=== PATIENT | male | born 1945 | race Caucasian/White ===

== ENCOUNTER 2017-04-07 08:37 | Observation (INO) | payer OTHER ==
[2017-04-07 08:43] VITALS: BMI 31.7
--- NOTE | 2017-04-07 09:20 | PDOC ---
*Physical Exam - Vital Signs Last Vital Signs Temp Pulse Resp BP Pulse Ox 97.4 F L 59 L 18 125/60 100 04/07/17 08:39 04/07/17 08:39 04/07/17 08:39 04/07/17 08:39 04/07/17 08:39 ED Treatment Course - LABORATORY CBC & Chemistry Diagram: 04/08/17 05:05 04/08/17 05:05 Medical Decision Making - Medical Decision Making 04/08/17 12:26 Mr Carrera is a 72 yo M presenting s/p syncopal event. (+) weakness, myalgias, arthralgias x 2 weeks He was seen in follow up by his spinning frame changer who did blood tests Pt had syncopal episode at 3 AM when he was leaving the bathroom Pt who was in the other room heard him GENERAL: The patient is in no acute distress. HEAD: Normal with no signs of trauma. EYES: PERRLA, EOMI, sclera anicteric, conjunctiva clear. ENT: Ears normal, nares patent, oropharynx clear without exudates. Moist mucous membranes. NECK: Normal range of motion, supple LUNGS: Breath sounds equal, clear to auscultation bilaterally. No wheezes, and no crackles. HEART:Regular rate and rhythm, normal S1 and S2 without murmur, rub or gallop. ABDOMEN: Soft, nontender, normoactive bowel sounds. No guarding, no rebound. No masses palpable. EXTREMITIES: Normal range of motion, no edema. No clubbing or cyanosis. No erythema, or tenderness. NEUROLOGICAL: Cranial nerves II through XII grossly intact. Normal speech. No focal neurological deficits. MUSCULOSKELETAL: Back non-tender to palpation, no CVA tenderness SKIN: Warm, Dry, normal turgor, no rashes or lesions noted. 04/08/17 12:35 Laboratory Tests 04/07/17 04/07/17 09:45 09:49 WBC 6.9 Hgb 13.3 Hct 39.9 Plt Count 204 BUN 20 H Creatinine 1.0 Creatine Kinase 161 Creatine Kinase Index 1.6 CK-MB (CK-2) 2.663 Troponin I 0.02 Patient will be placed on observation status post syncopal event 04/08/17 12:35 Pt seen by Midlevel Provider under my direct supervision Pt interviewed and examined Ancillary studies reviewed I agree with plan as outlined by Midlevel Provider Clinical impression: Syncope, initial presentation *DC/Admit/Observation/Transfer Diagnosis at time of Disposition: Syncope and collapse - Referrals - Patient Instructions - Post Discharge Activity
--- NOTE | 2017-04-07 09:47 | PDOC ---
History of Present Illness - General Chief Complaint: Syncope/Near Syncope Stated Complaint: NEAR SYNCOPE/SYNCOPE Time Seen by Provider: 04/07/17 08:57 History Source: Patient Exam Limitations: No Limitations - History of Present Illness Initial Comments: 04/07/17 09:52 72-year-old male presents the emergency room for evaluation of a syncopal episode. Patient states for the past 2 weeks has felt generally weak along with myalgia and arthralgia prompted him to call his mechanical maintenance instructor Dr. Hussein who had did blood work this past week. Patient states went to bed uneventfully at 3 AM last night and awoke from his sleep secondary to severe cramping in his left upper leg which caused him to jump out of bed and tried to walk it off. Patient states after leaving the bathroom the weakness progressively worsened and next thing he knows he woke up on the floor. Patient states was able to get up from the floor with no assistance. who was in the other room states she heard him hit the ground and when she went into the room he was already trying to get up. Patient has no complaints of chest pain, shortness of breath, headache, dizziness, visual changes or nausea. Presenting Symptoms: Syncope Timing/Duration: reports: resolved prior to arrival Prior Chest Pain/Cardiac Workup: reports: Other (stents secondary to cad, dyslipidemia) Nitro Today/Relief: Yes: no nitro taken today Aspirin Received prior to arrival (Core Measure): Yes: 81 mg x 1, provided at home Beta Shahzad taken at Home (Core Measure): Yes Beta Shahzad indicated at this time? (Core Measure): No Associated Symptoms: Yes: Syncope, Weakness Past History - Travel Traveled outside of the country in the last 30 days: No - Past Medical History Allergies/Adverse Reactions: Allergies Allergy/AdvReac Type Severity Reaction Status Date / Time codeine [Codeine] AdvReac Verified 04/07/17 08:39 Home Medications: Ambulatory Orders Aspirin 81 mg PO DAILY 04/07/17 Atorvastatin Ca [Lipitor] 10 mg PO MOWEFR 04/07/17 Metoprolol Succinate [Toprol Xl] 25 mg PO HS 04/07/17 Prasugrel HCl [Effient] 10 mg PO BID 04/07/17 Ranolazine [Ranexa] 500 mg PO BID 04/07/17 Anemia: No Asthma: No Cancer: No Cardiac Disorders: Yes (CAD) CVA: No COPD: No CHF: No Dementia: No Diabetes: No GI Disorders: No Disorders: No HTN: Yes Hypercholesterolemia: Yes Liver Disease: No Seizures: No Thyroid Disease: No - Surgical History Abdominal Surgery: No Appendectomy: No Cardiac Surgery: Yes (3 stents) Cholecystectomy: No Lung Surgery: No Neurologic Surgery: No Orthopedic Surgery: Yes (RIGHT HIP REPLACEMENT) - Suicide/Smoking/Psychosocial Hx Smoking Status: No Smoking History: Former smoker Have you smoked in the past 12 months: No Number of Cigarettes Smoked Daily: 0 Cigars Per Day: 0 Information on smoking cessation initiated: No Hx Alcohol Use: No Drug/Substance Use Hx: No Substance Use Type: None Hx Substance Use Treatment: No Patient Lives Alone: No Lives with/in: spouse/SO Cardiac Specific PMH - Complaint Specific PMHX Pacemaker: No Review of Systems - Review of Systems Able to Perform ROS?: Yes Constitutional: Yes: Weakness HEENTM: No: Symptoms Reported Respiratory: No: Cough, Orthopnea, Shortness of Breath Cardiac (ROS): Yes: Lightheadedness, Syncope. No: Chest Pain ABD/GI: No: Symptoms Reported : No: Symptoms Reported Musculoskeletal: Yes: Joint Pain (x 2 weeks), Muscle Weakness (x 2 weeks) Neurological: Yes: Weakness. No: Headache, Dizziness Hematologic/Lymphatic: Yes: See HPI *Physical Exam - Vital Signs Last Vital Signs Temp Pulse Resp BP Pulse Ox 97.4 F L 61 18 137/72 100 04/07/17 08:39 04/07/17 10:27 04/07/17 08:39 04/07/17 10:27 04/07/17 08:39 - Physical Exam General Appearance: Yes: Nourished, Appropriately Dressed. No: Apparent Distress HEENT: positive: EOMI, VÍCTOR, TMs Normal, Pharynx Normal. negative: Pale Conjunctivae Neck: positive: Supple Respiratory/Chest: positive: Lungs Clear, Normal Breath Sounds. negative: Respiratory Distress, Accessory Muscle Use Cardiovascular: positive: Regular Rhythm, Regular Rate (rate 63). negative: Murmur Extremity: positive: Normal Capillary Refill, Normal Inspection, Normal Range of Motion. negative: Tender, Pedal Edema, Calf Tenderness Integumentary: positive: Normal Color, Dry, Warm Neurologic: positive: Normal Mood/Affect, Motor Strength 5/5 (ambulatory) Heart Score/ECG Review - History History: Slightly suspicious - Electrocardiogram EKG: Normal - Age Age: >/= 65 - Risk Factors Risk Factors Heart Score: Yes Hx Hypercholesterolemia, Yes Hx Hypertension Based on the list above the patient has:: 1-2 risk factors - Troponin Troponin: </= normal limit - Score Heart Score - Total: 3 - ECG Intrepretation Rhythm: Regular Rhythm (Rate 63. Left axis deviation. Right bundle branch block noted. No ST elevation or depression noted. Unchanged from previous December 2015.) ED Treatment Course - LABORATORY CBC & Chemistry Diagram: 04/07/17 09:45 04/07/17 09:49 - ADDITIONAL ORDERS Additional order review: Laboratory Results 04/07/17 04/07/17 04/07/17 09:49 09:45 09:45 PT with INR 11.60 INR 1.03 Sodium 140 Potassium 4.6 Chloride 108 H Carbon Dioxide 25 Anion Gap 7 L BUN 20 H Creatinine 1.0 Creat Clearance w eGFR > 60 Random Glucose 108 H Calcium 8.4 L Magnesium 2.0 Total Bilirubin 0.3 D AST 22 ALT 33 Alkaline Phosphatase 97 Creatine Kinase 161 Troponin I 0.02 Total Protein 6.9 Albumin 3.5 Blood Type O POSITIVE Antibody Screen Negative 04/07/17 09:45 RBC 4.07 MCV 98.0 H MCHC 33.4 RDW 13.0 MPV 9.2 Neutrophils % 59.3 D Lymphocytes % 23.3 D Monocytes % 11.7 H Eosinophils % 5.0 H Basophils % 0.7 - RADIOLOGY Radiology Studies Ordered: Category Date Time Status HEAD CT WITHOUT CONTRAST [CT] Stat CT Scan 04/07/17 09:37 Completed CHEST PA & LAT [RAD] Stat Radiology 04/07/17 09:36 Taken Medical Decision Making - Medical Decision Making 04/07/17 09:49 Patient here for episodic syncope. Patient states the past 2 weeks has been having myalgia or arthralgia along with lower extremity muscle cramps which he notified his mechanical maintenance instructor about Dr. Hussein and had blood work done this past week. Patient states history of 2 stents and takes his medication as prescribed. Patient states today he was awoken from sleep secondary to left upper leg cramping and then after walking to the bathroom and tried to back to bed he felt generally weak causing him to fall to the ground which she is unable to recall specific events prior to him falling along with lower part of his body hit the ground. Patient ordered for cardiac workup including head CT and will contact his mechanical maintenance instructor along with his from a care physician. 04/07/17 11:53 Laboratory Tests 04/07/17 04/07/17 09:45 09:49 WBC 6.9 Hgb 13.3 Hct 39.9 MCV 98.0 H Plt Count 204 Neutrophils % 59.3 D Sodium 140 Potassium 4.6 Chloride 108 H Carbon Dioxide 25 Anion Gap 7 L BUN 20 H Creatinine 1.0 Random Glucose 108 H Calcium 8.4 L AST 22 ALT 33 Alkaline Phosphatase 97 Creatine Kinase 161 Troponin I 0.[address] negative for acute findings. Will contact patient's primary care physician Dr. Johnston and Dr. Hussein mechanical maintenance instructor 04/07/17 12:34 Selected Entries 04/07/17 10:27 Pulse Rate [ 64 Left side Sitting] Pulse Rate [ 67 Left side Standing] Pulse Rate [ 61 Left side Supine] Blood Pressure 129/69 [Left side Sitting] Blood Pressure 140/86 [Left side Standing] Blood Pressure 137/72 [Left side Supine] Case discussed with Dr. Hussein patient's mechanical maintenance instructor and is requesting a ESR along with admission to telemetry and an echocardiogram. Awaiting callback from Dr. Johnston *DC/Admit/Observation/Transfer Diagnosis at time of Disposition: Syncope and collapse - Discharge Dispostion Admit: Yes - Referrals Referrals: Elio Johnston MD [Primary Care Provider] - - Patient Instructions - Post Discharge Activity
[2017-04-07 10:07] LABS: BASO % 0.7 % (0-2.0); HEMATOCRIT 39.9 % (35.4-49); HEMOGLOBIN 13.3 GM/dL (11.7-16.9); LYMPH % 23.3 % (8-40); MCH 32.7 pg (25.7-33.7); MCHC 33.4 g/dl (32.0-35.9); MEAN PLT VOLUME 9.2 fl (7.5-11.1); MONO % 11.7 % (3.8-10.2); NEUT % 59.3 % (42.8-82.8); PLATELET COUNT 204 K/MM3 (134-434); RBC 4.07 M/mm3 (4.00-5.60); WHITE BLOOD COUNT 6.9 K/mm3 (4.0-10.0)
[2017-04-07 10:11] LABS: INR 1.03 (0.82-1.09); PROTHROMBIN TIME (PATIENT) 11.6 SEC (9.98-11.88)
[2017-04-07 10:29] LABS: ALBUMIN 3.5 g/dl (3.4-5.0); ALK PHOS 97 U/L (45-117); BILIRUBIN,TOTAL 0.3 mg/dL (0.2-1.0); BLOOD UREA NITROGEN 20 mg/dL (7-18); CALCIUM 8.4 mg/dL (8.5-10.1); CO2 25 mmol/L (21-32); GLUCOSE,RANDOM 108 mg/dL (74-106); SGOT/AST 22 U/L (15-37); SGPT/ALT 33 U/L (12-78); TOT PROT 6.9 g/dl (6.4-8.2)
[2017-04-07 10:31] LABS: ANION GAP 7 (8-16); CHLORIDE 108 mmol/L (98-107); POTASSIUM 4.6 mmol/L (3.5-5.1); SODIUM 140 mmol/L (136-145)
[2017-04-07] MEDS: ASPIRIN 81 MG CHEWABLE TABLETS PO SCH (14:39)
--- NOTE | 2017-04-07 15:00 | HP ---
CHIEF COMPLAINT: loss consciousness PCP: Bart Quispe HISTORY OF PRESENT ILLNESS: 72 year old male with a past medical history of CAD, s/p stents , vasovagal syncope, BPV, presents to the emergency room after loosing consciousness at home. Patient states he was laying in bed, he felt the urge to urinate, when he went to bathroom, moved his bowel. After getting up from seated position, he felt a "cindy horse" in left leg (chronic for him), all of a sudden he realized he was on the floor. When he woke up he noticed he soiled himself with urine and felt very weak. This was unwitnessed. Denies tongue biting, chest pain , palpitations, sob, diaphoresis, blurry vision. He has had one similar episode in the past that was attributed to vasovagal syncope. ER course was notable for: ECG; CXR; wnl; head CT negative. Trop neg x1. Recent Travel: no PAST MEDICAL HISTORY: CAD, stents 2016, HTN PAST SURGICAL HISTORY: Stents, Rt hip replacement, Social History: Smoking:quit 20yrs ago; use to smoke 1 ppd Alcohol: none Drugs: none Family History: Allergies codeine [Codeine] Adverse Reaction (Verified 04/07/17 08:39) C/O FEELING TIRED WITH MEDICATION HOME MEDICATIONS: Home Medications Medication Instructions Recorded Aspirin 81 mg PO DAILY 04/07/17 Atorvastatin Ca [Lipitor] 10 mg PO MOWEFR 04/07/17 Metoprolol Succinate [Toprol Xl] 25 mg PO HS 04/07/17 Prasugrel HCl [Effient] 10 mg PO BID 04/07/17 Ranolazine [Ranexa] 500 mg PO BID 04/07/17 REVIEW OF SYSTEMS CONSTITUTIONAL: Absent: fever, chills, diaphoresis, generalized weakness, malaise, loss of appetite, weight change HEENT: Absent: rhinorrhea, nasal congestion, throat pain, throat swelling, difficulty swallowing, mouth swelling, ear pain, eye pain, visual changes CARDIOVASCULAR: Absent: chest pain, syncope, palpitations, irregular heart rate, lightheadedness , peripheral edema RESPIRATORY: Absent: cough, shortness of breath, dyspnea with exertion, orthopnea, wheezing, stridor, hemoptysis GASTROINTESTINAL: Absent: abdominal pain, abdominal distension, nausea, vomiting, diarrhea, constipation, melena, hematochezia GENITOURINARY: Absent: dysuria, frequency, urgency, hesitancy, hematuria, flank pain, genital pain MUSCULOSKELETAL: Absent: myalgia, arthralgia, joint swelling, back pain, neck pain SKIN: Absent: rash, itching, pallor HEMATOLOGIC/IMMUNOLOGIC: Absent: easy bleeding, easy bruising, lymphadenopathy, frequent infections ENDOCRINE: Absent: unexplained weight gain, unexplained weight loss, heat intolerance, cold intolerance NEUROLOGIC: Positive: weakness , loc Absent: headache, focal weakness or paresthesias, dizziness, unsteady gait, seizure, mental status changes, bladder or bowel incontinence PSYCHIATRIC: Absent: anxiety, depression, suicidal or homicidal ideation, hallucinations. PHYSICAL EXAMINATION Vital Signs - 24 hr 04/07/17 04/07/17 08:39 10:27 Temperature 97.4 F L Pulse Rate 59 L Pulse Rate [ 64 Left side Sitting] Pulse Rate [ 67 Left side Standing] Pulse Rate [ 61 Left side Supine] Respiratory 18 Rate Blood Pressure 125/60 Blood Pressure 129/69 [Left side Sitting] Blood Pressure 140/86 [Left side Standing] Blood Pressure 137/72 [Left side Supine] O2 Sat by Pulse 100 Oximetry (%) GENERAL: Awake, alert, and fully oriented, in no acute distress. HEAD: Normal with no signs of trauma. EYES: Pupils equal, round and reactive to light, extraocular movements intact, sclera anicteric, conjunctiva clear. No lid lag. EARS, NOSE, THROAT: Ears normal, nares patent, oropharynx clear without exudates. Moist mucous membranes. NECK: Normal range of motion, supple without lymphadenopathy, JVD, or masses. LUNGS: Breath sounds equal, very mlid crakles bilateral bases; clears with cough No wheezes. No accessory muscle use. HEART: Regular rate and rhythm, normal S1 and S2 without murmur, rub or gallop. ABDOMEN: Soft, nontender, not distended, normoactive bowel sounds, no guarding, no rebound, no masses. No hepatomegaly or splenomegaly. MUSCULOSKELETAL: Normal range of motion at all joints. No bony deformities or tenderness. No CVA tenderness. UPPER EXTREMITIES: 2+ pulses, warm, well-perfused. No cyanosis. No clubbing. No peripheral edema. LOWER EXTREMITIES: 2+ pulses, warm, well-perfused. No calf tenderness. No peripheral edema. NEUROLOGICAL: Cranial nerves II-XII intact. Normal speech. facial symmetry; motor 5/5 all muscle groups; reflexes 2+; light touch/pain sensation intact throughout bilateral upper and lower extremities PSYCHIATRIC: Cooperative. Good eye contact. Appropriate mood and affect. SKIN: Warm, dry, normal turgor, no rashes or lesions noted, normal capillary refill. Laboratory Results - last 24 hr 04/07/17 04/07/17 04/07/17 09:45 09:45 09:45 WBC 6.9 RBC 4.07 Hgb 13.3 Hct 39.9 MCV 98.0 H MCH 32.7 MCHC 33.4 RDW 13.0 Plt Count 204 MPV 9.2 Neutrophils % 59.3 D Lymphocytes % 23.3 D Monocytes % 11.7 H Eosinophils % 5.0 H Basophils % 0.7 PT with INR 11.60 INR 1.03 Sodium Potassium Chloride Carbon Dioxide Anion Gap BUN Creatinine Creat Clearance w eGFR Random Glucose Calcium Magnesium Total Bilirubin AST ALT Alkaline Phosphatase Creatine Kinase Creatine Kinase Index CK-MB (CK-2) Troponin I Total Protein Albumin Blood Type O POSITIVE Antibody Screen Negative 04/07/17 09:49 WBC RBC Hgb Hct MCV MCH MCHC RDW Plt Count MPV Neutrophils % Lymphocytes % Monocytes % Eosinophils % Basophils % PT with INR INR Sodium 140 Potassium 4.6 Chloride 108 H Carbon Dioxide 25 Anion Gap 7 L BUN 20 H Creatinine 1.0 Creat Clearance w eGFR > 60 Random Glucose 108 H Calcium 8.4 L Magnesium 2.0 Total Bilirubin 0.3 D AST 22 ALT 33 Alkaline Phosphatase 97 Creatine Kinase 161 Creatine Kinase Index 1.6 CK-MB (CK-2) 2.663 Troponin I 0.02 Total Protein 6.9 Albumin 3.5 Blood Type Antibody Screen ASSESSMENT/PLAN: 72 year old male with a significant past medical history of HTN, CAD s/p stents , presents to the emergency room s/p loosing consciousness at home. Etiology for syncopal episode most likely vasovagal due to history and previous similar episodes. #Syncope; -most likely vasovagal; -place in telemetry to eval for arrhythmia -ECG unchanged from previous; still with 1st degree AV block; no st/t wave abnormalities -ECHO pending -will order carotid doppler ; eval arterial flow -cardiac consult CAD: -cont home med; asa; HTN: hold bp meds due to HR 59; FEN: Fluids: IVF; PO Electrolytes wnl Diet: cardiac VTE: lovenox Case discussed with Dr. Michela Gamez PGY-2 Problem List - Problem (1) Syncope and collapse Code(s): R55 - SYNCOPE AND COLLAPSE (2) Coronary artery disease Code(s): I25.10 - ATHSCL HEART DISEASE OF [place] CORONARY ARTERY W/O ANG PCTRS Qualifiers: Coronary Disease-Associated Artery/Lesion type: [place] artery [place] vs. transplanted heart: [place] heart Associated angina: with unstable angina Qualified Code(s): I25.110 - Atherosclerotic heart disease of [place] coronary artery with unstable angina pectoris (3) HTN (hypertension) Code(s): I10 - ESSENTIAL (PRIMARY) HYPERTENSION Qualifiers: Hypertension type: essential hypertension Qualified Code(s): I10 - Essential (primary) hypertension (4) Hyperlipidemia Code(s): E78.5 - HYPERLIPIDEMIA, UNSPECIFIED Qualifiers: Hyperlipidemia type: pure hypercholesterolemia (5) S/P coronary artery stent placement Code(s): Z95.5 - PRESENCE OF CORONARY ANGIOPLASTY IMPLANT AND GRAFT (6) Unstable angina Code(s): I20.0 - UNSTABLE ANGINA Visit type - Emergency Visit Emergency Visit: Yes ED Registration Date: 04/07/17 Care time: The patient presented to the Emergency Department on the above date and was hospitalized for further evaluation of their emergent condition. - New Patient This patient is new to me today: Yes Date on this admission: 04/07/17 - Critical Care Critical Care patient: No
[2017-04-07 15:54] LABS: MAGNESIUM 2.1 mg/dL (1.8-2.4); PHOSPHOROUS 2.8 mg/dL (2.5-4.9)
--- NOTE | 2017-04-07 16:14 | HP ---
CHIEF COMPLAINT: syncopal episode PCP: Dr. Li HISTORY OF PRESENT ILLNESS: 72M w/ hx of CAD s/p stents x3, HTN, HLD, ASHD, and 2 episodes of vasovagal syncope who presents after a syncopal episode. Per pt, he was having worsening of his chronic myalgias over the past 2 weeks. This morning at 3am, he awoke with severe left thigh muscle cramping pain. He then walked to the bathroom, had a BM, arose from the toilet, and upon walking back to his bed, he had a syncopal episode. The next thing he remembers is waking up on the floor, diaphoretic and having urinated on himself. He denies confusion, limb or head pain, and does not know if he hit any part of his body on the floor. His heard him hit the ground, and when she saw him, she states that he was coherent and his usual self. The pt endorses some lightheadedness, but denies fevers, chills, chest pain, SOB, nausea, emesis, diarrhea, constipation, dysuria, sick contacts, recent travel, tongue biting, and hx of seizures. Pt reports that he had 2 prior syncopal episodes in the past, the most recent of which was years ago. 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 ER course was notable for: (1) labs (2) imaging (3) EKG Recent Travel: denies PAST MEDICAL HISTORY: CAD, HTN, HLD, ASHD, and 2 episodes of vasovagal syncope PAST SURGICAL HISTORY: stents x3 right hip replacement Social History: Smokin pack year hx, quit 30 years ago Alcohol: denies Drugs: denies Family History: non-contributory Allergies codeine [Codeine] Adverse Reaction (Verified 04/07/17 08:39) C/O FEELING TIRED WITH MEDICATION HOME MEDICATIONS: Home Medications Medication Instructions Recorded Aspirin 81 mg PO DAILY 04/07/17 Atorvastatin Ca [Lipitor] 10 mg PO MOWEFR 04/07/17 Metoprolol Succinate [Toprol Xl] 25 mg PO HS 04/07/17 Prasugrel HCl [Effient] 10 mg PO BID 04/07/17 Ranolazine [Ranexa] 500 mg PO BID 04/07/17 REVIEW OF SYSTEMS CONSTITUTIONAL: Absent: fever, chills, diaphoresis, generalized weakness, malaise, loss of appetite, weight change present: diaphoresis HEENT: Absent: rhinorrhea, nasal congestion, throat pain, throat swelling, difficulty swallowing, mouth swelling, ear pain, eye pain, visual changes CARDIOVASCULAR: Absent: chest pain, palpitations, irregular heart rate, peripheral edema present: syncope, lightheadedness RESPIRATORY: Absent: cough, shortness of breath, dyspnea with exertion, orthopnea, wheezing, stridor, hemoptysis GASTROINTESTINAL: Absent: abdominal pain, abdominal distension, nausea, vomiting, diarrhea, constipation, melena, hematochezia GENITOURINARY: Absent: dysuria, frequency, urgency, hesitancy, hematuria, flank pain, genital pain MUSCULOSKELETAL: Absent: joint swelling, back pain, neck pain present: myalgia, arthralgia SKIN: Absent: rash, itching, pallor HEMATOLOGIC/IMMUNOLOGIC: Absent: easy bleeding, easy bruising, lymphadenopathy, frequent infections ENDOCRINE: Absent: unexplained weight gain, unexplained weight loss, heat intolerance, cold intolerance NEUROLOGIC: Absent: headache, focal weakness or paresthesias, dizziness, unsteady gait, seizure, mental status changes, bladder or bowel incontinence PSYCHIATRIC: Absent: anxiety, depression, suicidal or homicidal ideation, hallucinations. PHYSICAL EXAMINATION Vital Signs - 24 hr 04/07/17 04/07/17 08:39 10:27 Temperature 97.4 F L Pulse Rate 59 L Pulse Rate [ 64 Left side Sitting] Pulse Rate [ 67 Left side Standing] Pulse Rate [ 61 Left side Supine] Respiratory 18 Rate Blood Pressure 125/60 Blood Pressure 129/69 [Left side Sitting] Blood Pressure 140/86 [Left side Standing] Blood Pressure 137/72 [Left side Supine] O2 Sat by Pulse 100 Oximetry (%) GENERAL: Awake, alert, and fully oriented, in no acute distress. HEAD: Normal with no signs of trauma. EYES: Pupils equal, round and reactive to light, extraocular movements intact, sclera anicteric, conjunctiva clear. No lid lag. EARS, NOSE, THROAT: Ears normal, nares patent, oropharynx clear without exudates. Moist mucous membranes. NECK: Normal range of motion, supple without lymphadenopathy, JVD, or masses. LUNGS: mild bibasilar rales HEART: Regular rate and rhythm, normal S1 and S2 without murmur, rub or gallop. ABDOMEN: Soft, nontender, not distended, normoactive bowel sounds, no guarding, no rebound, no masses. No hepatomegaly or splenomegaly. MUSCULOSKELETAL: Normal range of motion at all joints. No bony deformities or tenderness. No CVA tenderness. UPPER EXTREMITIES: 2+ pulses, warm, well-perfused. No cyanosis. No clubbing. No peripheral edema. LOWER EXTREMITIES: 2+ pulses, warm, well-perfused. No calf tenderness. trace peripheral edema NEUROLOGICAL: Cranial nerves II-XII intact. Normal speech. Laboratory Results - last 24 hr 04/07/17 04/07/17 04/07/17 09:45 09:45 09:45 WBC 6.9 RBC 4.07 Hgb 13.3 Hct 39.9 MCV 98.0 H MCH 32.7 MCHC 33.4 RDW 13.0 Plt Count 204 MPV 9.2 Neutrophils % 59.3 D Lymphocytes % 23.3 D Monocytes % 11.7 H Eosinophils % 5.0 H Basophils % 0.7 PT with INR 11.60 INR 1.03 Sodium Potassium Chloride Carbon Dioxide Anion Gap BUN Creatinine Creat Clearance w eGFR Random Glucose Calcium Magnesium Total Bilirubin AST ALT Alkaline Phosphatase Creatine Kinase Creatine Kinase Index CK-MB (CK-2) Troponin I Total Protein Albumin Blood Type O POSITIVE Antibody Screen Negative 04/07/17 09:49 WBC RBC Hgb Hct MCV MCH MCHC RDW Plt Count MPV Neutrophils % Lymphocytes % Monocytes % Eosinophils % Basophils % PT with INR INR Sodium 140 Potassium 4.6 Chloride 108 H Carbon Dioxide 25 Anion Gap 7 L BUN 20 H Creatinine 1.0 Creat Clearance w eGFR > 60 Random Glucose 108 H Calcium 8.4 L Magnesium 2.0 Total Bilirubin 0.3 D AST 22 ALT 33 Alkaline Phosphatase 97 Creatine Kinase 161 Creatine Kinase Index 1.6 CK-MB (CK-2) 2.663 Troponin I 0.02 Total Protein 6.9 Albumin 3.5 Blood Type Antibody Screen CXR: no acute pathology CT head: no acute pathology EKG: no acute changes, type 1 heart block ASSESSMENT/PLAN: 72M w/ hx of CAD s/p stents x3, HTN, HLD, ASHD, and 2 episodes of vasovagal syncope who presents after a syncopal episode. #syncope -likely 2/2 vasovagal vs. cardiac vs. orthostatic etiology. Pt has hx of 2 prior vasovagal episodes, and this current syncopal episode occurred after defecating supporting vasovagal etiology. However, pt is on toprol and has type 1 heart block, and so any strenuous physical activity, such as defecation, could prevent the heart from adequately perfusing the brain, supporting cardiac etiology. -serial trops -echo -carotid dopplers -orthostatic vitals -cardiac tele -cardio consult, Dr. Hussein on board, f/u recs -CT head negative for any acute pathology #CAD -continue ASA, ranexa, and prasugrel #HTN -home toprol held due to BP and bradycardia #HLD -continue home lipitor #FEN/ppx -po fluids -electrolytes wnl -sodium controlled diet -no GI ppx indicated -lovenox #Dispo -admit to obs/tele Case discussed with attending, Dr. Abernathy. -Chris Alaniz MD PGY1 Visit type - Emergency Visit Emergency Visit: Yes ED Registration Date: 04/07/17 Care time: The patient presented to the Emergency Department on the above date and was hospitalized for further evaluation of their emergent condition. - New Patient This patient is new to me today: Yes Date on this admission: 04/07/17 - Critical Care Critical Care patient: No
--- NOTE | 2017-04-07 16:15 | PN ---
Teaching Attending Note Name of Resident: Chris Alaniz ATTENDING PHYSICIAN STATEMENT I saw and evaluated the patient. I reviewed the resident's note and discussed the case with the resident. I agree with the resident's findings and plan as documented. SUBJECTIVE: This is a 72 year old man with a history of CAD, stents, HTN, hyperlipidemia, vasovagal syncope who comes to the ER after passing out. He reports that he awoke at 3am with cramping of his left thigh. He went into the bathroom and had a bowel movement. He went to go back to bed and awoke on the floor. He was diaphoretic and had been incontinent of urine. His heard him hit the floor and found him awake, alert and oriented. OBJECTIVE: Vital Signs Period Temp Pulse Resp BP Sys/Warner Pulse Ox Last 24 Hr 97.4 F 59-67 18 125-140/60-86 100 HEART: S1S2, RRR LUNGS: Clear ABDOMEN: Soft, non-tender, non-distended, normal BS EXTREMITIES: Trace edema Laboratory Tests 04/07/17 04/07/17 04/07/17 09:45 09:45 09:45 WBC 6.9 RBC 4.07 Hgb 13.3 Hct 39.9 MCV 98.0 H MCH 32.7 MCHC 33.4 RDW 13.0 Plt Count 204 MPV 9.2 Neutrophils % 59.3 D Lymphocytes % 23.3 D Monocytes % 11.7 H Eosinophils % 5.0 H Basophils % 0.7 PT with INR 11.60 INR 1.03 Sodium Potassium Chloride Carbon Dioxide Anion Gap BUN Creatinine Creat Clearance w eGFR Random Glucose Calcium Magnesium Total Bilirubin AST ALT Alkaline Phosphatase Creatine Kinase Creatine Kinase Index CK-MB (CK-2) Troponin I Total Protein Albumin Blood Type O POSITIVE Antibody Screen Negative 04/07/17 09:49 WBC RBC Hgb Hct MCV MCH MCHC RDW Plt Count MPV Neutrophils % Lymphocytes % Monocytes % Eosinophils % Basophils % PT with INR INR Sodium 140 Potassium 4.6 Chloride 108 H Carbon Dioxide 25 Anion Gap 7 L BUN 20 H Creatinine 1.0 Creat Clearance w eGFR > 60 Random Glucose 108 H Calcium 8.4 L Magnesium 2.0 Total Bilirubin 0.3 D AST 22 ALT 33 Alkaline Phosphatase 97 Creatine Kinase 161 Creatine Kinase Index 1.6 CK-MB (CK-2) 2.663 Troponin I 0.02 Total Protein 6.9 Albumin 3.5 Blood Type Antibody Screen Home Medications Medication Instructions Recorded Aspirin 81 mg PO DAILY 04/07/17 Atorvastatin Ca [Lipitor] 10 mg PO MOWEFR 04/07/17 Metoprolol Succinate [Toprol Xl] 25 mg PO HS 04/07/17 Prasugrel HCl [Effient] 10 mg PO BID 04/07/17 Ranolazine [Ranexa] 500 mg PO BID 04/07/17 ASSESSMENT AND PLAN:
--- NOTE | 2017-04-07 16:37 | EKG ---
Test Reason : Blood Pressure : / mmHG Vent. Rate : 063 BPM Atrial Rate : 063 BPM P-R Int : 218 ms QRS Dur : 148 ms QT Int : 438 ms P-R-T Axes : -61 -38 000 degrees QTc Int : 448 ms UNUSUAL P AXIS, POSSIBLE ECTOPIC ATRIAL RHYTHM LEFT AXIS DEVIATION RIGHT BUNDLE BRANCH BLOCK ABNORMAL ECG WHEN COMPARED WITH ECG OF 08-JAN-2016 10:40, ECTOPIC ATRIAL RHYTHM HAS REPLACED SINUS RHYTHM Confirmed by MD Laura, Ash ([id number]) on 04/07/2017 4:37:36 PM Referred By: Confirmed By:Ash Sanchez MD
[2017-04-07] MEDS: RANOLAZINE E.R. 500 MG TABLET (FP) PO SCH (22:02)
[2017-04-07] MEDS: PRASUGREL HCL 10 MG TAB PO SCH (22:02)
[2017-04-08 06:33] LABS: BASO % 0.5 % (0-2.0); HEMATOCRIT 40.4 % (35.4-49); HEMOGLOBIN 13.7 GM/dL (11.7-16.9); MCH 33.5 pg (25.7-33.7); MCHC 33.9 g/dl (32.0-35.9); MEAN CELL VOLUME 98.8 fl (80-96); MONO % 11.6 % (3.8-10.2); NEUT % 63.9 % (42.8-82.8); PLATELET COUNT 201 K/MM3 (134-434); RBC 4.09 M/mm3 (4.00-5.60); RDW 13.5 % (11.9-15.9); WHITE BLOOD COUNT 8.5 K/mm3 (4.0-10.0)
[2017-04-08 06:47] LABS: ALBUMIN 3.3 g/dl (3.4-5.0); CHLORIDE 109 mmol/L (98-107); SODIUM 143 mmol/L (136-145)
[2017-04-08 06:53] LABS: ALK PHOS 85 U/L (45-117); ANION GAP 7 (8-16); BILIRUBIN,TOTAL 0.4 mg/dL (0.2-1.0); BLOOD UREA NITROGEN 14 mg/dL (7-18); CO2 27 mmol/L (21-32); CREATININE 0.9 mg/dL (0.7-1.3); GLUCOSE,RANDOM 99 mg/dL (74-106); SGOT/AST 22 U/L (15-37); SGPT/ALT 32 U/L (12-78); TOT PROT 6.8 g/dl (6.4-8.2)
--- NOTE | 2017-04-08 08:29 | CON.NEURO ---
Consult Consult Specialty:: ALICIA ALVAREZ-NEUROLOGY Reason for Consultation:: Syncope - History of Present Illness History of Present Illness: 2M w/ hx of CAD s/p stents x3, HTN, HLD, ASHD, and 2 episodes of vasovagal syncope who presents after a syncopal episode. Per pt, he was having worsening of his chronic myalgias over the past 2 weeks. This morning at 3am, he awoke with severe left thigh muscle cramping pain. He then walked to the bathroom, had a BM, arose from the toilet, and upon walking back to his bed, he had a syncopal episode. The next thing he remembers is waking up on the floor, diaphoretic and having urinated on himself. He denies confusion, limb or head pain, and does not know if he hit any part of his body on the floor. His heard him hit the ground, and when she saw him, she states that he was coherent and his usual self. The pt endorses some lightheadedness, but denies fevers, chills, chest pain, SOB, nausea, emesis, diarrhea, constipation, dysuria, sick contacts, recent travel, tongue biting, and hx of seizures. Pt reports that he had 2 prior syncopal episodes in the past, the most recent of which was years ago. 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 Mr. Andrade denies hx. of childhood syncope. Reports he has had 2 episodes of syncope prior to this one: each one is stereotypic-he has a sensation of cramping acc. by an urge to have a bowel movement which he does followed by passing out for up to two minutes upon return from the bathroom, without confusion/movements/incontinence. He denies all other neurologic symptoms. - Past Medical History Cardio/Vascular: Yes: CAD, HTN, Hyperlipdemia - Past Surgical History Past Surgical History: Yes: Stent - Alcohol/Substance Use Hx Alcohol Use: No - Smoking History Smoking history: Former smoker Have you smoked in the past 12 months: No Aproximately how many cigarettes per day: 0 Home Medications - Allergies Allergies/Adverse Reactions: Allergies Allergy/AdvReac Type Severity Reaction Status Date / Time codeine [Codeine] AdvReac Verified 04/07/17 08:39 - Home Medications Home Medications: Ambulatory Orders Aspirin 81 mg PO DAILY 04/07/17 Atorvastatin Ca [Lipitor] 10 mg PO MOWEFR 04/07/17 Metoprolol Succinate [Toprol Xl] 25 mg PO HS 04/07/17 Prasugrel HCl [Effient] 10 mg PO BID 04/07/17 Ranolazine [Ranexa] 500 mg PO BID 04/07/17 Physical Exam-Neuro Vital Signs: Vital Signs Temperature 98.9 F 04/08/17 03:00 Pulse Rate 70 04/08/17 07:44 Respiratory Rate 18 04/08/17 07:44 Blood Pressure 120/80 04/08/17 07:44 O2 Sat by Pulse Oximetry (%) 99 04/07/17 23:00 Labs: CBC, BMP 04/08/17 05:05 04/08/17 05:05 INR, PTT INR 1.03 (0.82-1.09) 04/07/17 09:45 - Neuro Exam Cranial Nerves II-XII Intact: No (slightly diminished right NLF only) Motor Strength: 5/5: Left Arm, Right Arm, Left Leg, Right Leg
--- NOTE | 2017-04-08 08:38 | PN ---
Progress Note (short form) - Note Progress Note: IDA TO MY NOTE DATED TODAY 04/08/17- ALICIA ALVAREZ-NEUROLOGY Pt. appears to have vasovagal syncope given premonitory symptoms, abdominal component and occurence in the past. He is not orthostatic by BP/HR on exam today.No evidence of seizures. I suggest cardiology consultation(Dr. Hussein), w/ u in progress. ?? candidate for mestinon to treat syncope. Thank you, Eloy Duncan [phone]
[2017-04-08] MEDS: RANOLAZINE E.R. 500 MG TABLET (FP) PO SCH (09:03)
[2017-04-08] MEDS: ASPIRIN 81 MG CHEWABLE TABLETS PO SCH (09:03)
[2017-04-08 09:18] LABS: URINE APPEARANCE CLEAR; URINE BILIRUBIN NEGATIVE (NEGATIVE); URINE BLOOD NEGATIVE (NEGATIVE); URINE COLOR LTYELLOW; URINE GLUCOSE (UA) NEGATIVE (NEGATIVE); URINE KETONE NEGATIVE (NEGATIVE); URINE LEUK ESTERASE NEGATIVE (NEGATIVE); URINE NITRITE NEGATIVE (NEGATIVE); URINE PROTEIN NEGATIVE (NEGATIVE); URINE UROBILINOGEN NEGATIVE mg/dL (0.2-1.0)
[2017-04-08] MEDS ORDERED: ENOXAPARIN NA (PORCINE) 40 MG/0.4 ML DISP.SYRIN SQ SCH (10:00)
--- NOTE | 2017-04-08 11:06 | CON.CARD ---
Consult Consult Specialty:: Cardiology Reason for Consultation:: Loss of consciousness. - History of Present Illness Chief Complaint: Loss of consciousness. History of Present Illness: 72 year old white male, known case of CAD, angina pectoris, s/p PCI/Stenting, Hypertension, Hypercholesterolemia, Vitamin B12 deficiency, Vitamin D deficiency and History of vasodepressor syncope, was admitted with history of severe cramping involving the left thigh associated with diaphoresis and an urge to move his bowels. He went to the bathroom and after moving his bowels, got up to go back to the bedroom and found himself on the floor and lost control over his urine. There is no history of injury, tongue biting or witnessed seizures. Patient has been complaining of myalgias which initially were thought to be related to statins and was stopped without any significant relief. For the last few weeks, he has been complaining of arthralgias involving most of the large joints. There is no history of chest pain or discomfort either at rest or at exertion, no history of chronic exertional dyspnea climbing two flights of stairs. No history of PND or orthopnea. No history of palpitations. - Past Medical History Cardio/Vascular: Yes: CAD, HTN, Hyperlipdemia Pulmonary: Yes: Sleep Apnea, Other (History of loud snoring) Rheumatology: Yes: Other (Myalgias and arthralgias) - Past Surgical History Past Surgical History: Yes: Joint Replacement (R Hip replacement. ), Stent, Tonsillectomy - Alcohol/Substance Use Hx Alcohol Use: Yes (Social drinker. ) History of Substance Use: reports: None - Smoking History Smoking history: Former smoker (1 pack per day since age 16 to 48.) Have you smoked in the past 12 months: No Aproximately how many cigarettes per day: 0 - Social History Usual Living Arrangement: With Child Occupation: Retired. Home Medications - Allergies Allergies/Adverse Reactions: Allergies Allergy/AdvReac Type Severity Reaction Status Date / Time codeine [Codeine] AdvReac Verified 04/07/17 08:39 - Home Medications Home Medications: Ambulatory Orders Aspirin 81 mg PO DAILY 04/07/17 Atorvastatin Ca [Lipitor] 10 mg PO MOWEFR 04/07/17 Metoprolol Succinate [Toprol Xl] 25 mg PO HS 04/07/17 Prasugrel HCl [Effient] 10 mg PO BID 04/07/17 Ranolazine [Ranexa] 500 mg PO BID 04/07/17 Home Medications (free text): CoQ10 200 mg DAILY. Vitamin D 3, 1000 IUs by mouth DAILY. Vitamin B 12 1200 microgram by mouth every other day. Colace 100 mg by mouth DAILY. Nitrostat 0.4 mg sublingually when necessary for chest discomfort. Family Disease History - Family Disease History Family Disease History: CA: Father ( at 52/ ?Stomach Cancer), Sister ( at 45 /Carcinoma site uncertain), Other: Mother ( at 84/ Head injury (fall)) Review of Systems Findings/Remarks: Constitutional: No history of chills, fever or night sweats. No history of unintentional weight loss. HEENT: No history of headaches, diplopia, blurred vision. No history of epistaxis or hoarseness. No tinnitus. +Deafness. Cardiovascular: See history of present illness. Respiratory: See history of present illness. No history of cough, expectoration or hemoptysis. No history of tuberculosis. GI: No history of nausea, vomiting, melena, or hematemesis. No history of abdominal pain or discomfort, no change in bowel habits reported. See history of present illness. 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 Endocrine: No history of polyuria or polydipsia. No history of intolerance to cold or warm weather. Musculoskeletal: +History of arthralgias. +history of myalgia. (See history of present illness) : No history of frequency or hematuria. HEME: No history of bleeding, anemia or ecchymosis. Vital Signs: Vital Signs Temperature 98.9 F 04/08/17 03:00 Pulse Rate 70 04/08/17 07:44 Respiratory Rate 04/08/17 07:44 Blood Pressure 120/80 04/08/17 07:44 O2 Sat by Pulse Oximetry (%) 99 04/07/17 23:00 Physical Examination: Neck: Supple, no JVD, negative HJR, carotids were equal and upstrokes were normal, no thyromegaly appreciated. Heart: PMI was in the 5th intercostal space, no heaves or thrills, S1 and S2 were normal. No murmurs or gallops were appreciated. Lungs: Clear on auscultation bilaterally. Abdomen: Soft, nontender, no hepatosplenomegaly appreciated, and no palpable masses were felt. Extremities: No calf tenderness or dependent edema. Pulses are normal. - Other Data Labs, Other Data: CBC, BMP 04/08/17 05:05 04/08/17 05:05 INR, PTT INR 1.03 (0.82-1.09) 04/07/17 09:45 Troponin, BNP 04/07/17 15:09 Troponin I < 0.02 Troponin, BNP 04/07/17 15:09 Troponin I < 0.02 EKG: Low atrial vs accelerated junctional rhythm (inverted P waves in II III aVF and upright in aVR). Intra atrial abnormality, first degree AV block, LAFH and CRBBB. Imaging - Results Chest X-ray: Report Reviewed Cat Scan: Report Reviewed Ultrasound: Report Reviewed (Carotid Doppler study showed 50-69 % stenosis of the left LCA. Moderately large noncalcified plaque along the proximal cervical left internal carotid artery. Moderate calcified plaque in right ICA.) EKG: Report Reviewed Assessment/Plan IMPRESSION: 1. Syncope most likely vasodepressor, advanced AV block needs to be excluded. 2. 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 3. Low atrial vs accelerated junctional rhythm. 4. CAD, s/p PCI/Stenting, angina pectoris currently stable. 5. Hypertension. 6. Hypercholesterolemia. 7. Obstructive Sleep apnea syndrome. 8. Myaglias and arthralgias, polymyaglia rheumatica needs to be excluded RECOMMENDATIONS: 1. Further evaluation of left carotid artery plaque. 2. In view of clinical presentation and underlying electrical ECG changes would suggest patient have a EP study and is agreeable and arrangements have to be made for transfer. 3. Continue current medications. 4. Evaluation of myaglias and arthralgias, polymyaglia rheumatica needs to be excluded.
[2017-04-08] MEDS ORDERED: PT OWN MED DRAWER 7, Y5N ONE ×3 (11:18→18:55)
[2017-04-08] MEDS: PRASUGREL HCL 10 MG TAB PO SCH (13:15)
[2017-04-08 13:22] VITALS: BP 150/72; PULSE 65
[2017-04-08 13:23] VITALS: TEMP 98.3
--- NOTE | 2017-04-08 14:11 | PN ---
Teaching Attending Note Name of Resident: Chris Alaniz ATTENDING PHYSICIAN STATEMENT Time of evaluation: 10:15 AM I saw and evaluated the patient. I reviewed the resident's note and discussed the case with the resident. I agree with the resident's findings and plan as documented. SUBJECTIVE: Patient seen and examined. no chest pain, dizziness, palpitations, abdominal or urinary symptoms. Has been asymptomatic inhouse. OBJECTIVE: Vital Signs Period Temp Pulse Resp BP Sys/Warner Pulse Ox Last 24 Hr 98.3 F-98.9 F 62-72 16-20 117-150/56-80 97-99 Intake & Output 04/05/17 04/06/17 04/07/17 04/08/17 23:59 23:59 23:59 23:59 Intake Total 240 Balance 240 Weight 185 lb General: sitting in bed in no acute distress CVS:S1S2 regular Chest: CTAB, no rales or wheezing abdomen: soft, NT, ND, psoitive bowel sounds extremities: no edema Neuro AAOx3, PERRL, facial symmetry, power 5/5, no pronator drift Home Medication List Medication Instructions Recorded Confirmed Type Aspirin 81 mg PO DAILY 04/07/17 04/07/17 History Atorvastatin Ca [Lipitor] 10 mg PO MOWEFR 04/07/17 04/07/17 History Metoprolol Succinate [Toprol Xl] 25 mg PO HS 04/07/17 04/07/17 History Prasugrel HCl [Effient] 10 mg PO BID 04/07/17 04/07/17 History Ranolazine [Ranexa] 500 mg PO BID 04/07/17 04/07/17 History Active Medications Generic Name Dose Route Start Last Admin Trade Name Neerajq PRN Reason Stop Dose Admin Aspirin 81 mg 04/07/17 14:30 04/08/17 09:03 Asa - PO 81 mg DAILY THERESA Administration Atorvastatin Calcium 10 mg 04/08/17 22:00 Lipitor - PO [id number] THERESA Enoxaparin Sodium 40 mg 04/08/17 10:00 04/08/17 09:03 Lovenox - SQ 40 mg DAILY THERESA Administration Prasugrel 10 mg 04/07/17 16:00 04/08/17 13:15 Effient - PO 10 mg DAILY THERESA Administration Ranolazine 500 mg 04/07/17 22:00 02/14/18 09:03 Ranexa - PO 500 mg BID THERESA Administration Laboratory Results - last 24 hr 04/07/17 04/07/17 04/07/17 15:09 15:09 15:09 WBC RBC Hgb Hct MCV MCH MCHC RDW Plt Count MPV Neutrophils % Lymphocytes % Monocytes % Eosinophils % Basophils % ESR 33 H Sodium Potassium Chloride Carbon Dioxide Anion Gap BUN Creatinine Creat Clearance w eGFR Random Glucose Calcium Phosphorus 2.8 Magnesium 2.1 Total Bilirubin AST ALT Alkaline Phosphatase Troponin I < 0.02 Total Protein Albumin Urine Color Urine Appearance Urine pH Ur Specific [place] Urine Protein Urine Glucose (UA) Urine Ketones Urine Blood Urine Nitrite Urine Bilirubin Urine Urobilinogen Ur Leukocyte Esterase 04/08/17 04/08/17 04/08/17 05:05 05:05 05:30 WBC 8.5 RBC 4.09 Hgb 13.7 Hct 40.4 MCV 98.8 H MCH 33.5 MCHC 33.9 RDW 13.5 Plt Count 201 MPV 10.0 Neutrophils % 63.9 Lymphocytes % 20.0 Monocytes % 11.6 H Eosinophils % 4.0 Basophils % 0.5 ESR Sodium 143 Potassium 4.0 Chloride 109 H Carbon Dioxide 27 Anion Gap 7 L BUN 14 D Creatinine 0.9 Creat Clearance w eGFR > 60 Random Glucose 99 Calcium 9.0 Phosphorus Magnesium Total Bilirubin 0.4 D AST 22 ALT 32 Alkaline Phosphatase 85 Troponin I Total Protein 6.8 Albumin 3.3 L Urine Color Ltyellow Urine Appearance Clear Urine pH 5.0 Ur Specific [place] 1.015 Urine Protein Negative Urine Glucose (UA) Negative Urine Ketones Negative Urine Blood Negative Urine Nitrite Negative Urine Bilirubin Negative Urine Urobilinogen Negative Ur Leukocyte Esterase Negative 2D echo reviewed Carotid dopplers results noted EKG RBBB, LAFB, low atrial vs junctional rhythm (discussed with Dr. Hussein) ASSESSMENT AND PLAN: 72 yom with PMHx of CAD s/p NE/PCI, HTN, HLD, Vitamin b12 deficiency, Vitamin D deficiency, vasovagal syncope, admitted with recurrent syncope. -Syncope likely vasovagal, r/o advanced AV block -FIrst degree AV block and LAFB -Low atrial vs junctional atrial rhythm -Left proximal ICA plaque -Myalgias/arthralgias -CAD s/p PCI/NE -HTN -HLD Plan: No further events. cardiology input appreciated. Plan to transfer to [place] for further EP study given concern for advanced AV block with syncope. Presentation currently points towards vasovagal episode. MRA neck, vascular surgery input accordingly, however can be pursued at the accepting facility as discussed with Dr. Hussein. Hold metoprolol for now. Discussed with patient about outpatient rheumatology referral once active issues have resolved. D/c to [facility] when bed available.
--- NOTE | 2017-04-08 14:43 | DS ---
Physical Exam: SUBJECTIVE: Patient seen and examined No acute events overnight. Pt denies headache, lightheadedness, SOB, cough, chest pain, n/v/d/c, and dysuria. OBJECTIVE: Vital Signs Period Temp Pulse Resp BP Sys/Warner Pulse Ox Last 24 Hr 98.3 F-98.9 F 62-72 16-20 117-150/56-80 97-99 PHYSICAL EXAM GENERAL: Awake, alert, and fully oriented, in no acute distress. HEENT: NC, AT, EOMI NECK: Normal range of motion, supple without lymphadenopathy, JVD, or masses. LUNGS: mild bibasilar rales HEART: Regular rate and rhythm, normal S1 and S2 without murmur, rub or gallop. ABDOMEN: Soft, nontender, not distended, normoactive bowel sounds, no guarding, no rebound, no masses. No hepatomegaly or splenomegaly. MUSCULOSKELETAL: Normal range of motion at all joints. No bony deformities or tenderness. No CVA tenderness. UPPER EXTREMITIES: 2+ pulses, warm, well-perfused. No cyanosis. No clubbing. No peripheral edema. LOWER EXTREMITIES: 2+ pulses, warm, well-perfused. No calf tenderness. trace peripheral edema NEUROLOGICAL: Cranial nerves II-XII intact. Normal speech. LABS Laboratory Results - last 24 hr 04/07/17 04/07/17 04/07/17 15:09 15:09 15:09 WBC RBC Hgb Hct MCV MCH MCHC RDW Plt Count MPV Neutrophils % Lymphocytes % Monocytes % Eosinophils % Basophils % ESR 33 H Sodium Potassium Chloride Carbon Dioxide Anion Gap BUN Creatinine Creat Clearance w eGFR Random Glucose Calcium Phosphorus 2.8 Magnesium 2.1 Total Bilirubin AST ALT Alkaline Phosphatase Troponin I < 0.02 Total Protein Albumin Urine Color Urine Appearance Urine pH Ur Specific [place] Urine Protein Urine Glucose (UA) Urine Ketones Urine Blood Urine Nitrite Urine Bilirubin Urine Urobilinogen Ur Leukocyte Esterase 04/08/17 04/08/17 04/08/17 05:05 05:05 05:30 WBC 8.5 RBC 4.09 Hgb 13.7 Hct 40.4 MCV 98.8 H MCH 33.5 MCHC 33.9 RDW 13.5 Plt Count 201 MPV 10.0 Neutrophils % 63.9 Lymphocytes % 20.0 Monocytes % 11.6 H Eosinophils % 4.0 Basophils % 0.5 ESR Sodium 143 Potassium 4.0 Chloride 109 H Carbon Dioxide 27 Anion Gap 7 L BUN 14 D Creatinine 0.9 Creat Clearance w eGFR > 60 Random Glucose 99 Calcium 9.0 Phosphorus Magnesium Total Bilirubin 0.4 D AST 22 ALT 32 Alkaline Phosphatase 85 Troponin I Total Protein 6.8 Albumin 3.3 L Urine Color Ltyellow Urine Appearance Clear Urine pH 5.0 Ur Specific [place] 1.015 Urine Protein Negative Urine Glucose (UA) Negative Urine Ketones Negative Urine Blood Negative Urine Nitrite Negative Urine Bilirubin Negative Urine Urobilinogen Negative Ur Leukocyte Esterase Negative Head CT: negative for any acute pathology CXR: negative for any acute pathology EKG: Low atrial vs accelerated junctional rhythm (inverted P waves in II III aVF and upright in aVR). Intra atrial abnormality, first degree AV block, LAFH and CRBBB. Carotid Doppler: FINDINGS: RIGHT: There is mild intimal hyperplasia along the common carotid artery. There is a moderate- sized calcified atheromatous plaque within the right carotid bulb. Proximal right common carotid artery: Peak systolic velocity = 108 cm/s. End-diastolic velocity = 16 cm/s. Mid right common carotid artery: Peak systolic velocity = 111 cm/s. End-diastolic velocity = 19 cm/ s. Distal right common carotid artery: Peak systolic velocity = 105 cm/s. End- diastolic velocity = 18 cm/s. Right carotid bulb: Peak systolic velocity = 108 cm/s and end-diastolic velocity = 16 cm/s. Proximal cervical right ICA: Peak systolic velocity = 81 cm/s and end-diastolic velocity = 14 cm/s. Mid cervical right ICA: Peak systolic velocity = 92 cm/s and end-diastolic velocity = 17 cm/ s. Right ICA/CCA peak systolic velocity ratio = 1.0 Right ICA/CCA end-diastolic velocity ratio = 0.8 Interrogated portion of the right vertebral artery demonstrates antegrade flow with peak systolic velocity = 49 cm/s. The origin of the right ECA is patent with peak systolic velocity measuring approximately 122 cm/s. LEFT: There is mild intimal hyperplasia along the common carotid artery. There is mild calcified plaque in the carotid bulb. There is relatively large plaque along the proximal cervical ICA which is predominantly noncalcified. Proximal left common carotid artery: Peak systolic velocity = 158 cm/s. End-diastolic velocity = 27 cm/s. Mid left common carotid artery: Peak systolic velocity = 130 cm/s. End-diastolic velocity = 22 cm/ s. Distal left common carotid artery: Peak systolic velocity = 89 cm/s. End-diastolic velocity = 18 cm /s. Left carotid bulb: Peak systolic velocity = 98 cm/s and end- diastolic velocity = 22 cm/s. Proximal cervical left ICA: Peak systolic velocity = 140 cm/s and end-diastolic velocity = 51 cm/s. Mid cervical left ICA : Peak systolic velocity = 210 cm/s and end-diastolic velocity = 45 cm/s. Left ICA/CCA peak systolic velocity ratio = 2.4 Left ICA/CCA end-diastolic velocity ratio = 2.8 Interrogated portion of the left vertebral artery demonstrates antegrade flow with peak systolic velocity = 48 cm/s. The origin of the ECA is patent with peak systolic velocity measuring approximately 91 cm/s. IMPRESSION: 1. Elevated peak systolic velocities and peak systolic velocity ratios in the cervical left ICA compatible with 50-69% stenosis, utilizing SRU criteria. 2. No evidence of hemodynamically significant stenosis in the right common carotid or cervical right internal carotid arteries, utilizing a side criteria. 3. Relatively large, predominantly noncalcified plaque along the proximal cervical left ICA. Moderate-sized, calcified plaque in the right carotid bulb. Echo: The study was technically difficult with many images being suboptimal in quality. The left ventricle is normal in size. There is mild concentric left ventricular hypertrophy. Left systolic ventricular function is normal. The right ventricle is normal in size and function. Normal left and right atrial size and function. There is trace mitral regurgitation and tricuspid regurgitation. There was insufficient TR detected to calculate RV systolic pressure. HOSPITAL COURSE: Date of Admission:04/07/17 Date of Discharge: 04/08/17 72M w/ hx of CAD s/p stents/PCI, HTN, HLD, ASHD, vitamin B12 deficiency, vitamin D deficiency, and 2 episodes of vasovagal syncope who presents after a syncopal episode. Per pt, he was having worsening of his chronic myalgias over the past 2 weeks. This morning at 3am, he awoke with severe left thigh muscle cramping pain. He then walked to the bathroom, had a BM, arose from the toilet, and upon walking back to his bed, he had a syncopal episode. The next thing he remembers is waking up on the floor, diaphoretic and having urinated on himself. He denies confusion, limb or head pain, and does not know if he hit any part of his body on the floor. His heard him hit the ground, and when she saw him, she states that he was coherent and his usual self. The pt endorses some lightheadedness, but denies fevers, chills, chest pain, SOB, nausea, emesis, diarrhea, constipation, dysuria, sick contacts, recent travel, tongue biting, and hx of seizures. Pt reports that he had 2 prior syncopal episodes in the past, the most recent of which was years ago. 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 Pt was worked up for syncope with EKG, echo, orthostatics, carotid doppler, and seen by cardiology. EKG showed a low atrial vs accelerated junctional rhythm ( inverted P waves in II III aVF and upright in aVR). Intra atrial abnormality, first degree AV block, LAFH and CRBBB. Echo was negative, carotid doppler showed a carotid artery plaque, orthostatics were negative. Per cardiology, Dr. Hussein, the impression was the followin. Syncope most likely vasodepressor, advanced AV block needs to be excluded. 2. 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 3. Low atrial vs accelerated junctional rhythm. 4. CAD, s/p PCI/Stenting, angina pectoris currently stable. 5. Hypertension. 6. Hypercholesterolemia. 7. Obstructive Sleep apnea syndrome. 8. Myaglias and arthralgias, polymyaglia rheumatica needs to be excluded Today, pt is stable for discharge to [facility] for further evaluation and treatment of arrhythmias by EP physician. Pt is accepted by Dr. Ludwig, and signout given by Dr. Hussein. Due to finding of left carotid artery plaque, we recommend further evaluation with an MRA neck and possibly vascular consult. In addition, due to pt's hx of myalgias and arthralgias in conjunction with elevated ESR, recommend outpt rheumatology workup for polymyalgia rheumatica. -Chris Alaniz MD PGY1 Minutes to complete discharge: 35 Discharge Summary Reason For Visit: SYNCOPE AND COLLAPSE Current Active Problems Syncope and collapse (Acute) Coronary artery disease (Chronic) HTN (hypertension) (Chronic) Hyperlipidemia (Chronic) Progressive angina (Chronic) Condition: Improved - Instructions Diet, Activity, Other Instructions: You presented with syncope and were found to have problems with the rhythm of your heart which might be causing or contributing to your syncopal episodes. You are being transferred to [facility] for further evaluation and treatment. Because of your muscle and joint pains, we have referred you to a quality consultant for further evaluation. Also, you were found to have a plaque in your carotid artery on the ultrasound, so we recommend you to obtain an MRA of your neck at [facility] and may need vascular surgery consult accordingly. Medications: Your Toprol XL 25 mg is currently being held pending further heart studies at the [facility] to rule out advanced heart block. Rest of your medications are continued. Followups: 1. follow up with your PCP within one week of your discharge. 2. follow up with rheumatology, Dr. Moore in 2 weeks. 3. follow up with cardiology, Dr. Hussein, in 1 week. If you develop any further episodes of syncope, chest pain, SOB, or any other concerning symptoms, return to the ED. Referrals: Elio Johnston MD [Primary Care Provider] - Alli Moore MD [Staff Physician] - Narciso Hussein MD [Staff Physician] - Disposition: TRANSFER ACUTE CARE/OTHER HOSP - Home Medications Comprehensive Discharge Medication List: Ambulatory Orders Aspirin 81 mg PO DAILY 04/07/17 Atorvastatin Ca [Lipitor] 10 mg PO MOWEFR 04/07/17 Prasugrel HCl [Effient] 10 mg PO BID 04/07/17 Ranolazine [Ranexa] 500 mg PO BID 04/07/17 This patient is new to me today: No Emergency Visit: Yes ED Registration Date: 04/07/17 Care time: The patient presented to the Emergency Department on the above date and was hospitalized for further evaluation of their emergent condition. Critical Care patient: No - Discharge Referral Referred to [facility] No
--- NOTE | 2017-04-08 16:37 | PN ---
Physical Exam: SUBJECTIVE: Patient seen and examined OBJECTIVE: Vital Signs Period Temp Pulse Resp BP Sys/Warner Pulse Ox Last 24 Hr 98.3 F-98.9 F 62-72 16-20 117-150/56-80 97-99 GENERAL: The patient is awake, alert, and fully oriented, in no acute distress. HEAD: Normal with no signs of trauma. EYES: PERRL, extraocular movements intact, sclera anicteric, conjunctiva clear. No ptosis. ENT: Ears normal, nares patent, oropharynx clear without exudates, moist mucous membranes. NECK: Trachea midline, full range of motion, supple. LUNGS: Breath sounds equal, clear to auscultation bilaterally, no wheezes, no crackles, no accessory muscle use. HEART: Regular rate and rhythm, S1, S2 without murmur, rub or gallop. ABDOMEN: Soft, nontender, nondistended, normoactive bowel sounds, no guarding, no rebound, no hepatosplenomegaly, no masses. EXTREMITIES: 2+ pulses, warm, well-perfused, no edema. NEUROLOGICAL: Cranial nerves II through XII grossly intact. Normal speech, gait not observed. PSYCH: Normal mood, normal affect. SKIN: Warm, dry, normal turgor, no rashes or lesions noted Laboratory Results - last 24 hr 04/07/17 04/08/17 04/08/17 15:09 05:05 05:05 WBC 8.5 RBC 4.09 Hgb 13.7 Hct 40.4 MCV 98.8 H MCH 33.5 MCHC 33.9 RDW 13.5 Plt Count 201 MPV 10.0 Neutrophils % 63.9 Lymphocytes % 20.0 Monocytes % 11.6 H Eosinophils % 4.0 Basophils % 0.5 ESR 33 H Sodium 143 Potassium 4.0 Chloride 109 H Carbon Dioxide 27 Anion Gap 7 L BUN 14 D Creatinine 0.9 Creat Clearance w eGFR > 60 Random Glucose 99 Calcium 9.0 Total Bilirubin 0.4 D AST 22 ALT 32 Alkaline Phosphatase 85 Total Protein 6.8 Albumin 3.3 L Urine Color Urine Appearance Urine pH Ur Specific [place] Urine Protein Urine Glucose (UA) Urine Ketones Urine Blood Urine Nitrite Urine Bilirubin Urine Urobilinogen Ur Leukocyte Esterase 04/08/17 05:30 WBC RBC Hgb Hct MCV MCH MCHC RDW Plt Count MPV Neutrophils % Lymphocytes % Monocytes % Eosinophils % Basophils % ESR Sodium Potassium Chloride Carbon Dioxide Anion Gap BUN Creatinine Creat Clearance w eGFR Random Glucose Calcium Total Bilirubin AST ALT Alkaline Phosphatase Total Protein Albumin Urine Color Ltyellow Urine Appearance Clear Urine pH 5.0 Ur Specific [place] 1.015 Urine Protein Negative Urine Glucose (UA) Negative Urine Ketones Negative Urine Blood Negative Urine Nitrite Negative Urine Bilirubin Negative Urine Urobilinogen Negative Ur Leukocyte Esterase Negative Active Medications Generic Name Dose Route Start Last Admin Trade Name Freq PRN Reason Stop Dose Admin Aspirin 81 mg 04/07/17 14:30 04/08/17 09:03 Asa - PO 81 mg DAILY THERESA Administration Atorvastatin Calcium 10 mg 04/08/17 22:00 Lipitor - PO [id number] [facility] Enoxaparin Sodium 40 mg 04/08/17 10:00 04/08/17 09:03 Lovenox - SQ 40 mg DAILY THERESA Administration Prasugrel 10 mg 04/07/17 16:00 04/08/17 13:15 Effient - PO 10 mg DAILY THERESA Administration Ranolazine 500 mg 04/07/17 22:00 04/08/17 09:03 Ranexa - PO 500 mg BID [facility] Administration ASSESSMENT/PLAN:
[2017-04-08] MEDS ORDERED: ATORVASTATIN CA 10 MG TABLET (FP) PO SCH (22:00)
== END 2017-04-08 18:50 | disposition short-term general hospital (02) ==
LOC: JER 08:37 → JERBED 12:36 → J2W 23:57
PROVIDERS: ADMIT Internal Medicine; ATTEND Hospitalist
PROC: 3E013GC Introduction of Other Therapeutic Substance into Subcutaneous Tissue, Percutaneous Approach (ICD-10-PCS; principal; 2017-04-07)
DX: R55 Syncope and collapse (principal); I10 Essential (primary) hypertension; I25.110 Atherosclerotic heart disease of native coronary artery with unstable angina pectoris; I44.0 Atrioventricular block, first degree; I45.2 Bifascicular block; E78.5 Hyperlipidemia, unspecified; E53.8 Deficiency of other specified B group vitamins; E55.9 Vitamin D deficiency, unspecified; G47.33 Obstructive sleep apnea (adult) (pediatric); M79.1 Myalgia; M25.50 Pain in unspecified joint; Z95.5 Presence of coronary angioplasty implant and graft; Z96.641 Presence of right artificial hip joint; Z87.891 Personal history of nicotine dependence; Z79.82 Long term (current) use of aspirin; Z88.5 Allergy status to narcotic agent
CPT/HCPCS: 36415; 70450-TC; 71046-TC-FY; 80053; 81003; 82550; 82553; 83735; 84100; 84484; 85025; 85610; 85651; 86850; 86900; 86901; 93005; 93010; 93306-TC; 93880-TC; 96372; 99285-25; G0378

== ENCOUNTER 2018-02-19 11:22 | Inpatient (IN) | payer OTHER ==
--- NOTE | 2018-02-19 11:38 | PDOC ---
History of Present Illness - General Chief Complaint: CVA/TIA Stated Complaint: SLURRED SPEECH Time Seen by Provider: 02/19/18 11:37 Past History - Past Medical History Allergies/Adverse Reactions: Allergies Allergy/AdvReac Type Severity Reaction Status Date / Time codeine [Codeine] AdvReac Verified 02/19/18 11:26 Home Medications: Ambulatory Orders Aspirin 81 mg PO DAILY 04/07/17 Prasugrel HCl [Effient] 10 mg PO BID 04/07/17 Ranolazine [Ranexa] 500 mg PO BID 04/07/17 Anemia: No Asthma: No Cancer: No Cardiac Disorders: Yes (CAD) CVA: No COPD: No CHF: No Dementia: No Diabetes: No GI Disorders: No Disorders: No HTN: Yes Hypercholesterolemia: Yes Liver Disease: No Seizures: No Thyroid Disease: No - Surgical History Abdominal Surgery: No Appendectomy: No Cardiac Surgery: Yes (3 stents) Cholecystectomy: No Lung Surgery: No Neurologic Surgery: No Orthopedic Surgery: Yes (RIGHT HIP REPLACEMENT) - Suicide/Smoking/Psychosocial Hx Smoking Status: No Smoking History: Unknown if ever smoked Have you smoked in the past 12 months: No Number of Cigarettes Smoked Daily: 0 Cigars Per Day: 0 Hx Alcohol Use: Yes (Social drinker. ) Drug/Substance Use Hx: No Substance Use Type: None Hx Substance Use Treatment: No *Physical Exam - Vital Signs Last Vital Signs Temp Pulse Resp BP Pulse Ox 97.4 F L 85 18 152/66 99 02/19/18 11:27 02/19/18 11:27 02/19/18 11:27 02/19/18 11:27 02/19/18 11:27 Moderate Sedation - Procedure Monitoring Vital Signs: Procedure Monitoring Vital Signs Temperature 97.4 F L 02/19/18 11:27 Pulse Rate 85 02/19/18 11:27 Respiratory Rate 18 02/19/18 11:27 Blood Pressure 152/66 02/19/18 11:27 O2 Sat by Pulse Oximetry (%) 99 02/19/18 11:27
--- NOTE | 2018-02-19 12:26 | PDOC ---
History of Present Illness <Kenyatta Luz - Last Filed: 02/19/18 12:59> - General History Source: Patient Exam Limitations: No Limitations - History of Present Illness Initial Comments: 02/19/18 12:22 72 yo male pmh of CAD s/p 3 stents (on eliquis and 81 asa), HLD and HTN presents to the ED for 2 days of AMS and confusion. Pts family provide part of HPI and state pt has been acting very strange that suddenly began at 7pm 2017. Pt was noted to have ordered an "Deidra" at [employer] rather than an german muffin and also miss identifying family members. Pt has had 3-4 similar episodes per day since Wed and denies MONTERROSO, N/V, changes in vision or speech, one sided weakness or sensory changes. Pt has no current complaints. Family state pt was reluctant to come to the hospital. <Mazin Deal - Last Filed: 02/19/18 14:10> - General Chief Complaint: CVA/TIA Stated Complaint: SLURRED SPEECH Time Seen by Provider: 02/19/18 11:37 NIH Stroke Scale - Last Known Well Date/Time & Onset Date Last Known Well: 02/17/18 Time Last Known Well: 19:00 - Initial Evaluation Level of consciousness: Alert Ask patient the month and their age: Answers both correctly Ask patient to open & close eyes; make fist and let go: Obeys both correctly Best gaze (horizontal eye movement): Normal Visual field testing: No visual field loss Facial paresis (Show teeth/raise eyebrows/close eyes tight): Normal symmetrical movement Motor Function: Left Arm: Normal Motor Function: Right Arm: Normal (extends arm 90 (or 45) degrees for 10 seconds without drift Motor Function: Left Leg: Normal (extends leg 30 degrees for 5 seconds without drift) Motor Function: Right Leg: Normal (extends leg 30 degrees for 5 seconds without drift) Limb Ataxia: No ataxia Sensory(Use pinprick test arms,legs,trunk,face/side to side): Normal Best language (Describe picture, name items, read sentences): Mild to moderate aphasia Dysarthria (read several words): Normal articulation Extinction and Inattention: No abnormality - Total Score NIH Stroke Scale Score: 1 <Mazin Deal - Last Filed: 02/19/18 14:10> Past History <Kenyatta Luz - Last Filed: 02/19/18 12:59> - Past Medical History Anemia: No Asthma: No Cancer: No Cardiac Disorders: Yes (CAD) CVA: No COPD: No CHF: No Dementia: No Diabetes: No GI Disorders: No Disorders: No HTN: Yes Hypercholesterolemia: Yes Liver Disease: No Seizures: No Thyroid Disease: No - Surgical History Abdominal Surgery: No Appendectomy: No Cardiac Surgery: Yes (3 stents) Cholecystectomy: No Lung Surgery: No Neurologic Surgery: No Orthopedic Surgery: Yes (RIGHT HIP REPLACEMENT) - Suicide/Smoking/Psychosocial Hx Smoking Status: No Smoking History: Unknown if ever smoked Have you smoked in the past 12 months: No Number of Cigarettes Smoked Daily: 0 Cigars Per Day: 0 Hx Alcohol Use: Yes (Social drinker. ) Drug/Substance Use Hx: No Substance Use Type: None Hx Substance Use Treatment: No <Mazin Deal - Last Filed: 02/19/18 14:10> - Past Medical History Allergies/Adverse Reactions: Allergies Allergy/AdvReac Type Severity Reaction Status Date / Time codeine [Codeine] AdvReac Verified 02/19/18 11:26 Home Medications: Ambulatory Orders Aspirin 81 mg PO DAILY 04/07/17 Prasugrel HCl [Effient] 10 mg PO BID 04/07/17 Ranolazine [Ranexa] 500 mg PO BID 04/07/17 Review of Systems - Review of Systems Constitutional: No: Chills, Fever HEENTM: No: Blurred Vision, Double Vision Respiratory: No: Shortness of Breath Cardiac (ROS): No: Chest Pain ABD/GI: No: Constipated, Diarrhea, Nausea, Vomiting : No: Burning, Dysuria, Flank Pain Musculoskeletal: No: Back Pain Neurological: No: Headache, Numbness, Paresthesia, Weakness, Unsteady Gait, Ataxia, Dizziness <Mazin Deal - Last Filed: 02/19/18 14:10> *Physical Exam - Vital Signs Last Vital Signs Temp Pulse Resp BP Pulse Ox 97.4 F L 85 18 152/66 99 02/19/18 11:27 02/19/18 11:27 02/19/18 11:27 02/19/18 11:27 02/19/18 11:27 <Kenyatta Luz - Last Filed: 02/19/18 12:59> - Vital Signs Last Vital Signs Temp Pulse Resp BP Pulse Ox 97.4 F L 85 18 152/66 99 02/19/18 11:27 02/19/18 11:27 02/19/18 11:27 02/19/18 11:27 02/19/18 11:27 - Physical Exam General Appearance: Yes: Nourished, Appropriately Dressed. No: Apparent Distress HEENT: positive: EOMI, VÍTCOR, Hearing Grossly Normal. negative: Photophobia, Scleral Icterus (R), Scleral Icterus (L) Respiratory/Chest: positive: Lungs Clear, Normal Breath Sounds. negative: Crackles, Wheezing Cardiovascular: positive: Regular Rhythm, Regular Rate, S1, S2. negative: Edema , JVD, Murmur Vascular Pulses: Dorsalis-Pedis (R): 4+, Doralis-Pedis (L): 4+ Gastrointestinal/Abdominal: positive: Flat, Soft. 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 negative: Facial Droop, Numbness, Sensory Deficit, Finger to Nose (normal), Confused, Disoriented <Mazin Deal - Last Filed: 02/19/18 14:10> Moderate Sedation - Procedure Monitoring Vital Signs: Procedure Monitoring Vital Signs Temperature 97.4 F L 02/19/18 11:27 Pulse Rate 85 02/19/18 11:27 Respiratory Rate 18 02/19/18 11:27 Blood Pressure 152/66 02/19/18 11:27 O2 Sat by Pulse Oximetry (%) 99 02/19/18 11:27 <Kenyatta Luz - Last Filed: 02/19/18 12:59> - Procedure Monitoring Vital Signs: Procedure Monitoring Vital Signs Temperature 97.4 F L 02/19/18 11:27 Pulse Rate 85 02/19/18 11:27 Respiratory Rate 18 02/19/18 11:27 Blood Pressure 152/66 02/19/18 11:27 O2 Sat by Pulse Oximetry (%) 99 02/19/18 11:27 <Mazin Deal - Last Filed: 02/19/18 14:10> ED Treatment Course - LABORATORY CBC & Chemistry Diagram: 02/19/18 11:53 02/19/18 12:18 - ADDITIONAL ORDERS Additional order review: 02/19/18 11:53 RBC 3.90 L MCV 101.8 H MCHC 35.4 RDW 13.9 MPV 10.3 Neutrophils % 64.2 Lymphocytes % 22.3 Monocytes % 8.2 Eosinophils % 4.7 H Basophils % 0.6 - Consult/PCP Time Called: 12:59 (Paged Dr. Duncan - Neuro) <Kenyatta Luz - Last Filed: 02/19/18 12:59> - LABORATORY CBC & Chemistry Diagram: 02/19/18 11:53 02/19/18 12:18 - RADIOLOGY Radiology Studies Ordered: Category Date Time Status HEAD CT (STROKE) [CT] Stat CT Scan 02/19/18 11:31 Ordered <Mazin Deal - Last Filed: 02/19/18 14:10> *DC/Admit/Observation/Transfer <Kenyatta Luz - Last Filed: 02/19/18 12:59> - Discharge Dispostion Decision to Admit order: Yes <Mazin Deal - Last Filed: 02/19/18 14:10> Diagnosis at time of Disposition: Non-hemorrhagic cerebrovascular accident (CVA) - Discharge Dispostion Condition at time of disposition: Stable - Referrals Referrals: Elio Johnston MD [Primary Care Provider] - - Patient Instructions - Post Discharge Activity
[2018-02-19 12:49] LABS: BASO % 0.6 % (0-2.0); EOS % 4.7 % (0-4.5); HEMATOCRIT 39.7 % (35.4-49); HEMOGLOBIN 14.1 GM/dL (11.7-16.9); LYMPH % 22.3 % (8-40); MCH 36.1 pg (25.7-33.7); MCHC 35.4 g/dl (32.0-35.9); MEAN CELL VOLUME 101.8 fl (80-96); MEAN PLT VOLUME 10.3 fl (7.5-11.1); MONO % 8.2 % (3.8-10.2); NEUT % 64.2 % (42.8-82.8); PLATELET COUNT 203 K/MM3 (134-434); RDW 13.9 % (11.9-15.9)
--- NOTE | 2018-02-19 13:11 | PDOC ---
Attending Attestation - HPI HPI: The patient is a 72 year old male, with a significant past medical history of CAD s/p stents x3 (on Eliquis and 81 mg aspirin), HTN, HLD, ASHD, and 3 episodes of vasovagal syncope, who presents to the emergency department with 2 days of altered mental status and confusion. Patients family (daughter & ) states that at 7pm on 02/17/18, patient began acting out of character. At [employer] he usually gets an egg and cheese Mcmuffin but instead ordered an Deidra. Patients daughter states that these episodes of misuse words have been occurring since Thursday at 7pm approximately 4-5 times a day and last for 2-3 minutes. Patients daughter states she would have brought him in earlier but patient refused to go to the ER at the time. He denies any weakness or slurred speech. He denies any recent fevers, chills, headache or dizziness. He denies any recent nausea, vomit, diarrhea or constipation. He denies any recent chest pain or shortness of breath. He denies any recent dysuria, frequency, urgency or hematuria. Allergies: codeine Past surgical history: None reported. Social History: Nonsmoker. Denies EtOH use and recreational drug use. Primary Care Physician: Elio Johnston [employer] Anchor: Narciso Hussein 02/19/18 14:37 - Physicial Exam PE: Vitals: Triage Vital signs reviewed General Appearance: no acute distress, well nourished well developed Head: Atraumatic Eyes: Pupils equal reactive round, extraocular movement intact Chest Wall: Nontender Cardiac: Regular rate and rhythm, no murmurs, no rubs, no gallops Lungs: Clear to auscultation bilateral, good air movement bilaterally Abdomen: Soft, non distended, normal bowel sounds, non tender to palpation Extremities: Full range of motion to all extremities, no cyanosis, clubbing, or edema Skin: Warm and dry, no rashes or lesions, no rash, no petechiae Neuro: word-finding difficulties, incorrect noun usuage - anomic aphasia. AOX3 ; Cranial Nerves 2-12 grossly intact, Strength intact to all extremities, Sensation intact to all extremities, gait normal Psych: Normal mood, normal affect - Medical Decision Making Paged Dr. Vanessa's service (covering for Dr. Johnston). 02/19/18 13:14 <Kenyatta Luz - Last Filed: 02/19/18 14:37> - Resident Resident Name: Mazin Deal - ED Attending Attestation I have performed the following: I have examined & evaluated the patient, The case was reviewed & discussed with the resident, I agree w/resident's findings & plan, Exceptions are as noted - Medical Decision Making The patient is a 72 year old male, with a significant past medical history of CAD s/p stents x3 (on Eliquis and 81 mg aspirin), HTN, HLD, ASHD, and 3 episodes of vasovagal syncope, who presents to the emergency department with 2 days of altered mental status and confusion. Patients family (daughter & ) states that at 7pm on 02/17/18, patient began acting out of character. History examination and CT consistent with MCA stroke onset of symptomatology was last Thursday based on onset of symptoms patient not a TPA candidate Did not want to come to the emergency department initially Here in the emergency department NIHSS stroke scale score 3 Neurology has been consult to cardiology has been consult the patient will be admitted to medicine for further management. <Demarcus Larsen - Last Filed: 02/19/18 14:59> Heart Score/ECG Review - ECG Impressions Comment:: 02/19/18 14:59 EKG performed at 1201 demonstrates sinus rhythm with first-degree AV block, right bundle-branch block, left anterior fascicular block. No ST elevations. No T-wave inversions. Interpreted by me. <Demarcus Larsen - Last Filed: 02/19/18 14:59> NIH Stroke Scale - Last Known Well Date/Time & Onset Date Last Known Well: 02/17/18 - Initial Evaluation Level of consciousness: Alert Ask patient the month and their age: Both incorrect Ask patient to open & close eyes; make fist and let go: Obeys both correctly Best gaze (horizontal eye movement): Normal Visual field testing: No visual field loss Facial paresis (Show teeth/raise eyebrows/close eyes tight): Normal symmetrical movement Motor Function: Left Arm: Normal Motor Function: Right Arm: Normal (extends arm 90 (or 45) degrees for 10 seconds without drift Motor Function: Left Leg: Normal (extends leg 30 degrees for 5 seconds without drift) Motor Function: Right Leg: Normal (extends leg 30 degrees for 5 seconds without drift) Limb Ataxia: No ataxia Sensory(Use pinprick test arms,legs,trunk,face/side to side): Normal Best language (Describe picture, name items, read sentences): Mild to moderate aphasia Dysarthria (read several words): Normal articulation Extinction and Inattention: No abnormality - Total Score NIH Stroke Scale Score: 3 <Demarcus Larsen - Last Filed: 02/19/18 14:59>
[2018-02-19 13:27] LABS: INR 1.1 (0.83-1.09)
[2018-02-19 13:40] LABS: ALBUMIN 3.6 g/dl (3.4-5.0); ALK PHOS 99 U/L (45-117); ANION GAP 6 MMOL/L (8-16); BILIRUBIN,TOTAL 0.3 mg/dL (0.2-1); BLOOD UREA NITROGEN 16 mg/dL (7-18); CALCIUM 8.9 mg/dL (8.5-10.1); CHLORIDE 106 mmol/L (98-107); CHOLESTEROL 208 mg/dL (50-200); CO2 29 mmol/L (21-32); CREATININE 1.1 mg/dL (0.55-1.3); GLUCOSE,RANDOM 155 mg/dL (74-106); HDL CHOLESTEROL 38 mg/dL (40-60); POTASSIUM 4.3 mmol/L (3.5-5.1); SGOT/AST 24 U/L (15-37); SGPT/ALT 40 U/L (13-61); SODIUM 141 mmol/L (136-145); TOT PROT 7.1 g/dl (6.4-8.2); TRIGLYCERIDES 265 mg/dL (0-150)
--- NOTE | 2018-02-19 15:51 | HP ---
Admitting History and Physical - Admission Chief Complaint: AMS. Confusion History of Present Illness: Patient is a 72 y/o male patient with past medical history of CAD s/p stent placement x 3, HTN, HLD, ASHD. Patient presented to ED with complaints of "confusing his words" since Thursday. Patient did not want to initially come to ED. Daughter and denied facial droop or slurring of speech at home. Brain CT scan performed in ED and show nonhemorrhagic cortical infarct in the vascular territories of the M2 segment of the left MCA. Being that symptoms began on Thursday unable to receive TPA in ED. Patient denies dizziness, denies chest pain, denies SOB. History Source: Patient, Family Member ( and daughter) Limitations to Obtaining History: Clinical Condition - Past Medical History Cardiovascular: Yes: CAD, HTN, Hyperlipdemia Pulmonary: Yes: Sleep Apnea, Other (History of loud snoring) Rheumatology: Yes: Other (Myalgias and arthralgias) - Past Surgical History Past Surgical History: Yes: Joint Replacement (R Hip replacement. ), Stent, Tonsillectomy - Smoking History Smoking history: Unknown if ever smoked Have you smoked in the past 12 months: No Aproximately how many cigarettes per day: 0 - Alcohol/Substance Use Hx Alcohol Use: Yes (Social drinker. ) History of Substance Use: reports: None - Social History Usual Living Arrangement: Yes: With Spouse ADL: Independent Occupation: Retired. Home Medications - Allergies Allergies/Adverse Reactions: Allergies Allergy/AdvReac Type Severity Reaction Status Date / Time codeine [Codeine] AdvReac Verified 02/19/18 11:26 - Home Medications Home Medications: Ambulatory Orders Aspirin 81 mg PO DAILY 04/07/17 Prasugrel HCl [Effient] 10 mg PO BID 04/07/17 Ranolazine [Ranexa] 500 mg PO BID 04/07/17 Family Disease History - Family Disease History Family Disease History: CA: Father ( at 52/ ?Stomach Cancer), Sister ( at 45 /Carcinoma site uncertain), Other: Mother ( at 84/ Head injury (fall)) Review of Systems - Review of Systems Constitutional: reports: No Symptoms Eyes: reports: No Symptoms HENT: reports: No Symptoms Neck: reports: No Symptoms Cardiovascular: reports: No Symptoms Respiratory: reports: No Symptoms Gastrointestinal: reports: No Symptoms Genitourinary: reports: No Symptoms Breasts: reports: No Symptoms Reported Musculoskeletal: reports: No Symptoms Integumentary: reports: No Symptoms Neurological: reports: Confusion, Other ("confusing words" as per pt) Endocrine: reports: No Symptoms Hematology/Lymphatic: reports: No Symptoms Psychiatric: reports: No Symptoms Physical Examination Vital Signs: Vital Signs Temperature 97.4 F L 02/19/18 11:27 Pulse Rate 70 02/19/18 15:46 Respiratory Rate 18 02/19/18 15:46 Blood Pressure 153/68 02/19/18 15:46 O2 Sat by Pulse Oximetry (%) 99 02/19/18 15:46 Constitutional: Yes: Well Nourished, No Distress, Calm Eyes: Yes: Conjunctiva Clear, PERRL Neck: Yes: Supple Cardiovascular: Yes: Regular Rate and Rhythm Respiratory: Yes: Regular, CTA Bilaterally Gastrointestinal: Yes: Normal Bowel Sounds, Soft Musculoskeletal: Yes: WNL Extremities: Yes: WNL Edema: No Integumentary: Yes: WNL Neurological: Yes: Alert, Confusion, Other (alert and oriented to self, when asked what year patient stated 2005 and says the month is February, negative facial droop, negative slurred speech) Psychiatric: Yes: Alert Labs: CBC, BMP 02/19/18 11:53 02/19/18 12:18 Imaging - Results Cat Scan: Report Reviewed Problem List - Problems (1) Non-hemorrhagic cerebrovascular accident (CVA) Code(s): I63.9 - CEREBRAL INFARCTION, UNSPECIFIED (2) HTN (hypertension) Code(s): I10 - ESSENTIAL (PRIMARY) HYPERTENSION Qualifiers: Hypertension type: essential hypertension Qualified Code(s): I10 - Essential (primary) hypertension (3) Hyperlipidemia Code(s): E78.5 - HYPERLIPIDEMIA, UNSPECIFIED Qualifiers: Hyperlipidemia type: pure hypercholesterolemia Qualified Code(s): E78.00 - Pure hypercholesterolemia, unspecified; E78.0 - Pure hypercholesterolemia Assessment/Plan \\ -admit to telemetry -neurology consult pending -cardiology consult pending -neuro checks q4h -low sodium diet -lipid profile and HgA1c ordered -fall precaution -physical therapy consult -SCD for DVT ppx
[2018-02-19 16:58] VITALS: BMI 31.2
--- NOTE | 2018-02-19 18:51 | CON.NEURO ---
Consult Consult Specialty:: NEUROLOGY-ALICIA ALVAREZ - History of Present Illness History of Present Illness: The patient is a 72 year old male, with a significant past medical history of CAD s/p stents x3 (on Eliquis and 81 mg aspirin), HTN, HLD, ASHD, and 3 episodes of vasovagal syncope, who presents to the emergency department with 2 days of altered mental status and confusion. Patients family (daughter & ) states that at 7pm on 02/17/18, patient began acting out of character. At [employer] he usually gets an egg and cheese Mcmuffin but instead ordered an Deidra. Patients daughter states that these episodes of misuse words have been occurring since Thursday at 7pm approximately 4-5 times a day and last for 2-3 minutes. Patients daughter states she would have brought him in earlier but patient refused to go to the ER at the time. He denies any weakness or slurred speech. He denies any recent fevers, chills, headache or dizziness. He denies any recent nausea, vomit, diarrhea or constipation. He denies any recent chest pain or shortness of breath. He denies any recent dysuria, frequency, urgency or hematuria. History Source: Patient, Family Member ( and daughter)- daughter tells me x 2 days he has had difficulty getrting words out and has had impaired comprehension(gives incorrect answers to simple questions. They deny all other neurologic symptoms. - Past Medical History Cardio/Vascular: Yes: CAD, HTN, Hyperlipdemia Pulmonary: Yes: Sleep Apnea, Other (History of loud snoring) Rheumatology: Yes: Other (Myalgias and arthralgias) - Past Surgical History Past Surgical History: Yes: Joint Replacement (R Hip replacement. ), Stent, Tonsillectomy - Alcohol/Substance Use Hx Alcohol Use: Yes (Social drinker. ) History of Substance Use: reports: None - Smoking History Smoking history: Unknown if ever smoked Have you smoked in the past 12 months: No Aproximately how many cigarettes per day: 0 If you are a former smoker, when did you quit?: 20 YEARS AGO - Social History Usual Living Arrangement: With Child ADL: Independent Occupation: Retired. Home Medications - Allergies Allergies/Adverse Reactions: Allergies Allergy/AdvReac Type Severity Reaction Status Date / Time codeine [Codeine] AdvReac Verified 02/19/18 11:26 - Home Medications Home Medications: Ambulatory Orders Aspirin 81 mg PO DAILY 04/07/17 Prasugrel HCl [Effient] 10 mg PO BID 04/07/17 Ranolazine [Ranexa] 500 mg PO BID 04/07/17 Family Disease History - Family Disease History Family Disease History: CA: Father ( at 52/ ?Stomach Cancer), Sister ( at 45 /Carcinoma site uncertain), Other: Mother ( at 84/ Head injury (fall)) Physical Exam-Neuro Vital Signs: Vital Signs Temperature 98.2 F 02/19/18 17:05 Pulse Rate 65 02/19/18 17:05 Respiratory Rate 18 02/19/18 17:05 Blood Pressure 140/66 02/19/18 17:05 O2 Sat by Pulse Oximetry (%) 97 02/19/18 17:00 Labs: CBC, BMP 02/19/18 11:53 02/19/18 12:18 INR, PTT INR 1.10 (0.83-1.09) H 02/19/18 11:53 - Neuro Exam Speech: Broca's Aphasia (+ non-fluent speech at times, mildly impaired comprehension, + anomia+ paraphasic errors) Dominant Hand: Right Mini Mental Exam: Mildly impaired attention, oriented to place /person/year/ month Cranial Nerves II-XII Intact: Yes Gag: Present DTR's: 0 Left Achilles, 0 Right Achilles, 1+ Left Bicep, 1+ Right Bicep, 1+ Left Tricep, 1+ Right Tricep, 1+ Left Brachioradialis, 1+ Right Brachioradialis Babinski: Absent Response to light touch: Normal Response to pain prick: Normal Response to temperature: Normal Response to vibration: Normal Motor Strength: 5/5: Left Arm, Right Arm, Left Leg, Right Leg (No drift) Imaging - Results Cat Scan: Report Reviewed (Left M2 seg MCA territory inf- inf/mid frontal gyrus attenuation and loss of [place] white jx.) Assessment/Plan The patient is a 72 year old male, with a significant past medical history of CAD s/p stents x3 (on Eliquis and 81 mg aspirin), HTN, HLD, ASHD, and 3 episodes of vasovagal syncope, who presents to the emergency department with 2 days of altered mental status and confusion. Patients family (daughter & ) states that at 7pm on 02/17/18, patient began acting out of character. At [facility] he usually gets an egg and cheese Mcmuffin but instead ordered an Deidra. Patients daughter states that these episodes of misuse words have been occurring since Thursday at 7pm approximately 4-5 times a day and last for 2-3 minutes. His exam reveals a mild motor and sensory mixed aphasia, imaging reveals MCAterritory infarct that appears embolic given infarcts presenting with pure aphasias and of this particular appearance tend to be embolic. Suggest: Carotid doppler study, MRA Cardiology consultation re possibility of cardiac embolii Given strong possibility of embolic cerebral event would consider a/c with Eliquis if agreed to by cardiology. Thank you, Eloy Duncan MD
--- NOTE | 2018-02-19 19:07 | EKG ---
Test Reason : Blood Pressure : / mmHG Vent. Rate : 071 BPM Atrial Rate : 071 BPM P-R Int : 230 ms QRS Dur : 146 ms QT Int : 432 ms P-R-T Axes : 050 -47 037 degrees QTc Int : 469 ms POOR DATA QUALITY, INTERPRETATION MAY BE ADVERSELY AFFECTED SINUS RHYTHM WITH 1ST DEGREE A-V BLOCK RIGHT BUNDLE BRANCH BLOCK LEFT ANTERIOR FASCICULAR BLOCK BIFASCICULAR BLOCK ABNORMAL ECG WHEN COMPARED WITH ECG OF 07-APR-2017 09:32, SINUS RHYTHM HAS REPLACED ECTOPIC ATRIAL RHYTHM Confirmed by MERISSA ALVAREZ, BARRETT ([id number]) on 02/19/2018 7:06:33 PM Referred By: Confirmed By:BARRETT CRAVEN MD
[2018-02-19 21:23] LABS: URINE APPEARANCE CLEAR; URINE BILIRUBIN NEGATIVE (<2.0 mg/dL); URINE COLOR LTYELLOW; URINE GLUCOSE (UA) NEGATIVE (NEGATIVE); URINE KETONE NEGATIVE (NEGATIVE); URINE LEUK ESTERASE NEGATIVE (NEGATIVE); URINE NITRITE NEGATIVE (NEGATIVE); URINE PROTEIN NEGATIVE (NEGATIVE); URINE UROBILINOGEN NEGATIVE mg/dL (0.2-1.0)
[2018-02-19] MEDS: RANOLAZINE E.R. 500 MG TABLET (FP) PO SCH (22:39)
[2018-02-20 07:30] LABS: HEMATOCRIT 40.6 % (35.4-49); HEMOGLOBIN 13.4 GM/dL (11.7-16.9); MCH 34.2 pg (25.7-33.7); MCHC 33.1 g/dl (32.0-35.9); MEAN CELL VOLUME 103.4 fl (80-96); MEAN PLT VOLUME 10.2 fl (7.5-11.1); PLATELET COUNT 189 K/MM3 (134-434); RBC 3.92 M/mm3 (4.00-5.60); WHITE BLOOD COUNT 6.8 K/mm3 (4.0-10.0)
[2018-02-20 08:52] LABS: ALBUMIN 3.6 g/dl (3.4-5.0); ALK PHOS 95 U/L (45-117); ANION GAP 8 MMOL/L (8-16); BILIRUBIN,TOTAL 0.4 mg/dL (0.2-1); BLOOD UREA NITROGEN 16 mg/dL (7-18); CALCIUM 8.7 mg/dL (8.5-10.1); CHLORIDE 110 mmol/L (98-107); CHOLESTEROL 189 mg/dL (50-200); CO2 24 mmol/L (21-32); CREATININE 0.9 mg/dL (0.55-1.3); GLUCOSE,RANDOM 100 mg/dL (74-106); HDL CHOLESTEROL 36 mg/dL (40-60); POTASSIUM 4.2 mmol/L (3.5-5.1); SGOT/AST 22 U/L (15-37); SGPT/ALT 38 U/L (13-61); SODIUM 141 mmol/L (136-145); TOT PROT 6.7 g/dl (6.4-8.2); TRIGLYCERIDES 218 mg/dL (0-150)
[2018-02-20] MEDS: RANOLAZINE E.R. 500 MG TABLET (FP) PO SCH ×2 (10:15→21:10)
[2018-02-20] MEDS: ASPIRIN 81 MG CHEWABLE TABLETS PO SCH (10:15)
--- NOTE | 2018-02-20 12:05 | CON.CARD ---
Cardiology Consult (text) - Consultation Consultation Note: cardiology covering for Dr Hussein cc: ams hpi: 72 m hx cad s/p remote pci, htn, hld, here with ams. Noted to be confused by family so brought to ER. No cp sob palps dizzy loc pnd orthopnea le edema. Found to have acute cva. Confusion improving. pmh: per hpi psh:pci social: ex tob fam: no premature cad ros: per hpi; no nvd fever cough vision changes, gib hematuria dysuria meds: Home Medications Medication Instructions Recorded Aspirin 81 mg PO DAILY 04/07/17 Prasugrel HCl [Effient] 10 mg PO BID 04/07/17 Ranolazine [Ranexa] 500 mg PO BID 04/07/17 pe: Vital Signs Period Temp Pulse Resp BP Sys/Warner Pulse Ox Last 24 Hr 97.7 F-98.4 F 65-82 18-20 140-159/66-81 95-99 nad no jvd rrr s1s2 no mrg cta bl nl eff aaox3 no le e/c/c abd nt nd pos bs no jaundice diaphoresis pos dp pt no carotid bruits Laboratory Last Values WBC 6.8 K/mm3 (4.0-10.0) 02/20/18 06:00 RBC 3.92 M/mm3 (4.00-5.60) L 02/20/18 06:00 Hgb 13.4 GM/dL (11.7-16.9) 02/20/18 06:00 Hct 40.6 % (35.4-49) 02/20/18 06:00 MCV 103.4 fl (80-96) H 02/20/18 06:00 MCH 34.2 pg (25.7-33.7) H 02/20/18 06:00 MCHC 33.1 g/dl (32.0-35.9) 02/20/18 06:00 RDW 14.0 % (11.9-15.9) 02/20/18 06:00 Plt Count 189 K/MM3 (134-434) 02/20/18 06:00 MPV 10.2 fl (7.5-11.1) 02/20/18 06:00 Absolute Neuts (auto) 3.8 K/mm3 (1.5-8.0) 02/19/18 11:53 Neutrophils % 64.2 % (42.8-82.8) 02/19/18 11:53 Lymphocytes % 22.3 % (8-40) 02/19/18 11:53 Monocytes % 8.2 % (3.8-10.2) 02/19/18 11:53 Eosinophils % 4.7 % (0-4.5) H 02/19/18 11:53 Basophils % 0.6 % (0-2.0) 02/19/18 11:53 Nucleated RBC % 0 % (0-0) 02/19/18 11:53 PT with INR 13.00 SEC (9.7-13.0) 02/19/18 11:53 INR 1.10 (0.83-1.09) H 02/19/18 11:53 Sodium 141 mmol/L (136-145) 02/20/18 06:00 Potassium 4.2 mmol/L (3.5-5.1) 02/20/18 06:00 Chloride 110 mmol/L (98-107) H 02/20/18 06:00 Carbon Dioxide 24 mmol/L (21-32) 02/20/18 06:00 Anion Gap 8 MMOL/L (8-16) 02/20/18 06:00 BUN 16 mg/dL (7-18) 02/20/18 06:00 Creatinine 0.9 mg/dL (0.55-1.3) 02/20/18 06:00 Creat Clearance w eGFR > 60 (>60) 02/20/18 06:00 Random Glucose 100 mg/dL (74-106) 02/20/18 06:00 Hemoglobin A1c % 5.6 % (4.2-6.3) 02/20/18 06:00 Calcium 8.7 mg/dL (8.5-10.1) 02/20/18 06:00 Total Bilirubin 0.4 mg/dL (0.2-1) 02/20/18 06:00 AST 22 U/L (15-37) 02/20/18 06:00 ALT 38 U/L (13-61) 02/20/18 06:00 Alkaline Phosphatase 95 U/L (45-117) 02/20/18 06:00 Creatine Kinase 109 IU/L (26-308) 12/28/18 12:18 Troponin I < 0.02 ng/ml (0.00-0.05) 02/19/18 12:18 Total Protein 6.7 g/dl (6.4-8.2) 02/20/18 06:00 Albumin 3.6 g/dl (3.4-5.0) 02/20/18 06:00 Triglycerides 218 mg/dL (0-150) H 02/20/18 06:00 Cholesterol 189 mg/dL (50-200) 02/20/18 06:00 Total LDL Cholesterol 131 mg/dL (5-100) H 02/20/18 06:00 HDL Cholesterol 36 mg/dL (40-60) L 02/20/18 06:00 Urine Color Ltyellow 02/19/18 12:06 Urine Appearance Clear 02/19/18 12:06 Urine pH 6.0 (5.0-8.0) 02/19/18 12:06 Ur Specific [place] 1.016 (1.010-1.035) 02/19/18 12:06 Urine Protein Negative (NEGATIVE) 02/19/18 12:06 Urine Glucose (UA) Negative (NEGATIVE) 02/19/18 12:06 Urine Ketones Negative (NEGATIVE) 02/19/18 12:06 Urine Blood Negative (NEGATIVE) 02/19/18 12:06 Urine Nitrite Negative (NEGATIVE) 02/19/18 12:06 Urine Bilirubin Negative (<2.0 mg/dL) 02/19/18 12:06 Urine Urobilinogen Negative mg/dL (0.2-1.0) 02/19/18 12:06 Ur Leukocyte Esterase Negative (NEGATIVE) 02/19/18 12:06 Blood Type O POSITIVE 02/19/18 12:03 Antibody Screen Negative 02/19/18 12:03 tele: sr ecg: sr, 1st avb, rbbb, no sig change 12/2015 echo 03/2017: mild lvh, nl lv/rv, no sig valve path a/p: 72 m hx cad s/p remote pci, htn, hld, here with ams. acute cva: -check echo, carotids -suspicious for embolic cva per neuro -pt has no known hx afib. cont tele. will likely need outpt event monitor/ loop recorder if no afib detected here. -pt remains on asa and effient as per outpt curb hop. Would continue same for now. htn: -stable off meds hld: -pt reports statin was stopped, plans per his outpt curb hop cad s/p remote pci: -no signs acs -nl lvef -no anginal sxs -cont outpt meds dapt, ranexa
--- NOTE | 2018-02-20 12:23 | PN ---
Progress Note, Physician Chief Complaint: CVA History of Present Illness: NAD confusion improving - Current Medication List Current Medications: Active Medications Aspirin (Asa -) 81 mg PO DAILY [facility] Last Admin: 02/20/18 10:15 Dose: 81 mg Atorvastatin Calcium (Lipitor -) 10 mg PO HS [facility] Prasugrel (Effient -) 10 mg PO BID [facility] Ranolazine (Ranexa -) 500 mg PO BID [facility] Last Admin: 02/20/18 10:15 Dose: 500 mg - Objective Vital Signs: Vital Signs Temperature 98.4 F 02/20/18 10:00 Pulse Rate 82 02/20/18 10:00 Respiratory Rate 18 02/20/18 10:00 Blood Pressure 146/81 02/20/18 10:00 O2 Sat by Pulse Oximetry (%) 95 02/20/18 10:00 Constitutional: Yes: Well Nourished, No Distress, Calm Cardiovascular: Yes: Regular Rate and Rhythm Respiratory: Yes: Regular Gastrointestinal: Yes: Normal Bowel Sounds, Soft, Abdomen, Obese Musculoskeletal: Yes: WNL Extremities: Yes: WNL Edema: No Peripheral Pulses WNL: Yes Neurological: Yes: Alert, Confusion Psychiatric: Yes: Alert Labs: CBC, BMP 02/20/18 06:00 02/20/18 06:00 INR, PTT INR 1.10 (0.83-1.09) H 02/19/18 11:53 Problem List - Problems (1) Non-hemorrhagic cerebrovascular accident (CVA) Assessment/Plan: -Seen by Neurology and cardiology -Brain CT scan performed in ED and show nonhemorrhagic cortical infarct in the vascular territories of the M2 segment of the left MCA. -Echo and U/S Carotid pending -On ASA, Effient -start atorvastatin 10 mg po hs Code(s): I63.9 - CEREBRAL INFARCTION, UNSPECIFIED (2) Coronary artery disease Assessment/Plan: -Seen by Neurology and cardiology -Brain CT scan performed in ED and show nonhemorrhagic cortical infarct in the vascular territories of the M2 segment of the left MCA. -Echo and U/S Carotid pending -On ASA, Effient -start atorvastatin 10 mg po hs Code(s): I25.10 - ATHSCL HEART DISEASE OF [place] CORONARY ARTERY W/O ANG PCTRS Qualifiers: Coronary Disease-Associated Artery/Lesion type: [place] artery [place] vs. transplanted heart: [place] heart Associated angina: with unstable angina Qualified Code(s): I25.110 - Atherosclerotic heart disease of [place] coronary artery with unstable angina pectoris (3) Hyperlipidemia Assessment/Plan: -Start Atorvastatin 10 mg po HS Code(s): E78.5 - HYPERLIPIDEMIA, UNSPECIFIED Qualifiers: Hyperlipidemia type: pure hypercholesterolemia Qualified Code(s): E78.00 - Pure hypercholesterolemia, unspecified; E78.0 - Pure hypercholesterolemia (4) Unstable angina Assessment/Plan: -On Ranexa -Seen by Cardiology -On tele Code(s): I20.0 - UNSTABLE ANGINA Assessment/Plan see problem list Physical therapy Spoke to at bedside
--- NOTE | 2018-02-20 14:59 | CON.PULM ---
Consult Consult Specialty:: PULMONARY Referred by:: OSMANY Reason for Consultation:: SOB - History of Present Illness Chief Complaint: EXPRESSIVE APHASIA History of Present Illness: The patient is a 72 year old male, with a significant past medical history of CAD s/p stents x3 (on Eliquis and 81 mg aspirin), HTN, HLD, ASHD, and 3 episodes of vasovagal syncope, who presents to the emergency department with 2 days of altered mental status and confusion. Patients family (daughter & ) states that at 7pm on 02/17/18, patient began acting out of character. At [place]' he usually gets an egg and cheese Mcmuffin but instead ordered an Deidra. Patients daughter states that these episodes of misuse words have been occurring since Thursday at 7pm approximately 4-5 times a day and last for 2-3 minutes. Patients daughter states she would have brought him in earlier but patient refused to go to the ER at the time. He denies any weakness or slurred speech. He denies any recent fevers, chills, headache or dizziness. He denies any recent nausea, vomit, diarrhea or constipation. He denies any recent chest pain or shortness of breath. He denies any recent dysuria, frequency, urgency or hematuria. 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 No: AFIB Pulmonary: Yes: Sleep Apnea, Other (History of loud snoring) Gastrointestinal: No: Ascites Hepatobiliary: No: Cirrhosis Renal/: No: Renal Failure Heme/Onc: No: Anemia Psych: No: Addictions Rheumatology: Yes: Other (Myalgias and arthralgias) - Past Surgical History Past Surgical History: Yes: Joint Replacement (R Hip replacement. ), Stent, Tonsillectomy - Alcohol/Substance Use Hx Alcohol Use: Yes (Social drinker. ) History of Substance Use: reports: None - Smoking History Smoking history: Unknown if ever smoked Have you smoked in the past 12 months: No Aproximately how many cigarettes per day: 0 If you are a former smoker, when did you quit?: 20 YEARS AGO - Social History Usual Living Arrangement: With Spouse ADL: Independent Occupation: Retired. Place of : [place] History of Recent Travel: No Home Medications - Allergies Allergies/Adverse Reactions: Allergies Allergy/AdvReac Type Severity Reaction Status Date / Time codeine [Codeine] AdvReac Verified 02/19/18 11:26 - Home Medications Home Medications: Ambulatory Orders Aspirin 81 mg PO DAILY 04/07/17 Prasugrel HCl [Effient] 10 mg PO BID 04/07/17 Ranolazine [Ranexa] 500 mg PO BID 04/07/17 Family Disease History - Family Disease History Family Disease History: CA: Father ( at 52/ ?Stomach Cancer), Sister ( at 45 /Carcinoma site uncertain), Other: Mother ( at 84/ Head injury (fall)) Review of Systems - Review of Systems Eyes: reports: Blind Spots HENT: denies: Difficult Swallowing Neck: denies: Decreased ROM Cardiovascular: denies: Chest Pain Respiratory: denies: Cough, Exercise Intolerance, SOB on Exertion Gastrointestinal: denies: Abdominal Pain Genitourinary: denies: Burning Breasts: reports: No Symptoms Reported Musculoskeletal: reports: No Symptoms Integumentary: reports: No Symptoms Neurological: reports: Change in Speech, Dizziness Endocrine: reports: No Symptoms Physical Exam Vital Sings: Vital Signs Temperature 98.0 F 02/20/18 14:18 Pulse Rate 72 02/20/18 14:18 Respiratory Rate 18 02/20/18 14:18 Blood Pressure 132/70 02/20/18 14:18 O2 Sat by Pulse Oximetry (%) 95 02/20/18 10:00 Constitutional: Yes: Calm Eyes: Yes: EOM Intact HENT: Yes: Normocephalic Neck: Yes: Trachea Midline Cardiovascular: Yes: Regular Rate and Rhythm Respiratory: Yes: CTA Bilaterally Gastrointestinal: Yes: Normal Bowel Sounds, Soft Edema: No Neurological: Yes: Alert, Pre-Existing Deficit ...Motor Strength: WNL Psychiatric: Yes: WNL Labs: CBC, BMP 02/20/18 06:00 02/20/18 06:00 REST REVIEWED Imaging - Results Chest X-ray: Report Reviewed, Image Reviewed X-ray: Report Reviewed, Image Reviewed Cat Scan: Report Reviewed Ultrasound: Image Reviewed EKG: Report Reviewed Problem List - Problems (1) Non-hemorrhagic cerebrovascular accident (CVA) Code(s): I63.9 - CEREBRAL INFARCTION, UNSPECIFIED (2) Coronary artery disease Code(s): I25.10 - ATHSCL HEART DISEASE OF [place] CORONARY ARTERY W/O ANG PCTRS Qualifiers: Coronary Disease-Associated Artery/Lesion type: [place] artery [place] vs. transplanted heart: [place] heart Associated angina: with unstable angina Qualified Code(s): I25.110 - Atherosclerotic heart disease of [place] coronary artery with unstable angina pectoris (3) HTN (hypertension) Code(s): I10 - ESSENTIAL (PRIMARY) HYPERTENSION Qualifiers: Hypertension type: essential hypertension Qualified Code(s): I10 - Essential (primary) hypertension (4) Hyperlipidemia Code(s): E78.5 - HYPERLIPIDEMIA, UNSPECIFIED Qualifiers: Hyperlipidemia type: pure hypercholesterolemia Qualified Code(s): E78.00 - Pure hypercholesterolemia, unspecified; E78.0 - Pure hypercholesterolemia (5) S/P coronary artery stent placement Code(s): Z95.5 - PRESENCE OF CORONARY ANGIOPLASTY IMPLANT AND GRAFT Assessment/Plan LIKELY EMBOLIC CVA PCI STENT HPL/HTN OSAS ASA/EFFIENT PER NEURO/CARDIO CONSIDER RX FOR OSAS BP CONTROL CAROTID DOPPLERS REVIEWED ECHO PENDING R INGRID ALVAREZ
[2018-02-20] MEDS ORDERED: ATORVASTATIN CA 10 MG TABLET (FP) PO SCH (22:00)
[2018-02-21] MEDS: RANOLAZINE E.R. 500 MG TABLET (FP) PO SCH ×2 (09:00→21:33)
[2018-02-21] MEDS: ASPIRIN 81 MG CHEWABLE TABLETS PO SCH (09:00)
--- NOTE | 2018-02-21 10:53 | PN ---
Progress Note (short form) - Note Progress Note: s: no cp sob palps dizzy o: Vital Signs Period Temp Pulse Resp BP Sys/Warner Pulse Ox Last 24 Hr 97.6 F-98.1 F 67-80 16-20 132-143/70-78 97-97 nad no jvd rrr s1s2 no mrg cta bl nl eff aaox3 no le e/c/c abd nt nd pos bs no jaundice diaphoresis Current Medications Generic Name Dose Route Start Last Admin Trade Name Kirsty PRN Reason Stop Dose Admin Aspirin 81 mg 02/20/18 10:00 02/21/18 09:00 Asa - PO 81 mg DAILY THERESA Administration Atorvastatin Calcium 10 mg 02/20/18 22:00 02/20/18 21:10 Lipitor - PO 10 mg HS THERESA Administration Prasugrel 10 mg 02/19/18 22:00 Effient - PO BID THERESA Ranolazine 500 mg 02/19/18 22:00 02/21/18 09:00 Ranexa - PO 500 mg BID THERESA Administration CBC, BMP 02/20/18 06:00 02/20/18 06:00 tele: sr ecg: sr, 1st avb, rbbb, no sig change 12/2015 echo 03/2017: mild lvh, nl lv/rv, no sig valve path carotids 01/2018: 60-79% LICA a/p: 72 m hx cad s/p remote pci, htn, hld, here with ams. 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 cont tele. will likely need outpt event monitor/ loop recorder if no afib detected here. -pt remains on asa and effient as per outpt battery tester field. Would continue same for now. htn: -high at times, will start toprol 25 qd hld: -statin started here cad s/p remote pci: -no signs acs -nl lvef -no anginal sxs -cont outpt meds dapt, ranexa
[2018-02-21] MEDS ORDERED: PRASUGREL HCL 10 MG TAB PO SCH (11:00)
[2018-02-21] MEDS: metoPROLOL SUCCINATE 25 MG TAB.SR.24H (FP) PO SCH (12:16)
--- NOTE | 2018-02-21 12:25 | PN ---
Progress Note (short form) - Note Progress Note: PULMONARY AWAKE/ALERT/ PRESENT NO FURTHER EXPRESSIVE APHASIA NO OVERALL CHANGE IN EXAM CAROTID DOPPLER NOTED WILL ASK VASCULAR OPINION FOR CEA CARDIO NOTE RIRI QUINTERO MD Problem List - Problems (1) Non-hemorrhagic cerebrovascular accident (CVA) Code(s): I63.9 - CEREBRAL INFARCTION, UNSPECIFIED (2) Coronary artery disease Code(s): I25.10 - ATHSCL HEART DISEASE OF [place] CORONARY ARTERY W/O ANG PCTRS Qualifiers: Coronary Disease-Associated Artery/Lesion type: [place] artery [place] vs. transplanted heart: [place] heart Associated angina: with unstable angina Qualified Code(s): I25.110 - Atherosclerotic heart disease of [place] coronary artery with unstable angina pectoris (3) HTN (hypertension) Code(s): I10 - ESSENTIAL (PRIMARY) HYPERTENSION Qualifiers: Hypertension type: essential hypertension Qualified Code(s): I10 - Essential (primary) hypertension (4) Hyperlipidemia Code(s): E78.5 - HYPERLIPIDEMIA, UNSPECIFIED Qualifiers: Hyperlipidemia type: pure hypercholesterolemia Qualified Code(s): E78.00 - Pure hypercholesterolemia, unspecified; E78.0 - Pure hypercholesterolemia (5) S/P coronary artery stent placement Code(s): Z95.5 - PRESENCE OF CORONARY ANGIOPLASTY IMPLANT AND GRAFT
[2018-02-21] MEDS ORDERED: PT OWN MED DRAWER 7, Y5N ONE (16:18)
--- NOTE | 2018-02-21 16:21 | PN ---
Progress Note, Physician Chief Complaint: CVA History of Present Illness: NAD confusion improving U/S carotid shows left ICA 60-79% atherosclerosis Vascular surgery consulted Effient discontinued, pt started on plavix as hospital doesn't have effient available - Current Medication List Current Medications: Active Medications Aspirin (Asa -) 81 mg PO DAILY [facility] Last Admin: 02/21/18 09:00 Dose: 81 mg Atorvastatin Calcium (Lipitor -) 10 mg PO HS [facility] Last Admin: 02/20/18 21:10 Dose: 10 mg Clopidogrel Bisulfate (Plavix -) 75 mg PO DAILY [facility] Metoprolol Succinate (Toprol Xl -) 25 mg PO DAILY [facility] Last Admin: 02/21/18 12:16 Dose: 25 mg Ranolazine (Ranexa -) 500 mg PO BID [facility] Last Admin: 02/21/18 09:00 Dose: 500 mg - Objective Vital Signs: Vital Signs Temperature 98.3 F 02/21/18 15:37 Pulse Rate 71 02/21/18 15:37 Respiratory Rate 18 02/21/18 15:37 Blood Pressure 122/59 L 02/21/18 15:37 O2 Sat by Pulse Oximetry (%) 97 02/21/18 08:42 Constitutional: Yes: Well Nourished, No Distress, Calm Cardiovascular: Yes: Regular Rate and Rhythm Respiratory: Yes: Regular Gastrointestinal: Yes: Normal Bowel Sounds, Soft Musculoskeletal: Yes: WNL Extremities: Yes: WNL Edema: No Peripheral Pulses WNL: Yes Neurological: Yes: Alert, Confusion Psychiatric: Yes: Alert Labs: CBC, BMP 02/20/18 06:00 02/20/18 06:00 INR, PTT INR 1.10 (0.83-1.09) H 02/19/18 11:53 Problem List - Problems (1) Non-hemorrhagic cerebrovascular accident (CVA) Assessment/Plan: -Seen by Neurology and cardiology -Brain CT scan performed in ED and show nonhemorrhagic cortical infarct in the vascular territories of the M2 segment of the left MCA. -Echo pending -U/S Carotid reviewed -On ASA, plavix -start atorvastatin 10 mg po hs Code(s): I63.9 - CEREBRAL INFARCTION, UNSPECIFIED (2) Coronary artery disease Assessment/Plan: -Seen by Neurology and cardiology -Brain CT scan performed in ED and show nonhemorrhagic cortical infarct in the vascular territories of the M2 segment of the left MCA. -Echo pending -U/S Carotid reviewed -On ASA, start plavix first dose now -start atorvastatin 10 mg po hs Code(s): I25.10 - ATHSCL HEART DISEASE OF [place] CORONARY ARTERY W/O ANG PCTRS Qualifiers: Coronary Disease-Associated Artery/Lesion type: [place] artery [place] vs. transplanted heart: [place] heart Associated angina: with unstable angina Qualified Code(s): I25.110 - Atherosclerotic heart disease of [place] coronary artery with unstable angina pectoris (3) Hyperlipidemia Assessment/Plan: -Start Atorvastatin 10 mg po HS Code(s): E78.5 - HYPERLIPIDEMIA, UNSPECIFIED Qualifiers: Hyperlipidemia type: pure hypercholesterolemia Qualified Code(s): E78.00 - Pure hypercholesterolemia, unspecified; E78.0 - Pure hypercholesterolemia (4) Unstable angina Assessment/Plan: -On Ranexa -Seen by Cardiology -On tele Code(s): I20.0 - UNSTABLE ANGINA Assessment/Plan see problem list Physical therapy Spoke to at bedside
[2018-02-21] MEDS: CLOPIDOGREL BISULFATE 75 MG TABLET (FP) PO SCH (17:28)
[2018-02-21] MEDS: PRASUGREL HCL 10 MG TAB PO SCH ×2 (19:26→19:27)
[2018-02-21] MEDS ORDERED: ROSUVASTATIN CA 10 MG TABLET (FP) PO SCH (22:00)
[2018-02-22] MEDS ORDERED: ROSUVASTATIN CA 20 MG TABLET (FP) PO SCH (09:17)
--- NOTE | 2018-02-22 09:18 | PN ---
Progress Note, Physician Chief Complaint: cva History of Present Illness: feels his speech is back to normal. denies motor weakness/numbness no cp, sob, palpit ex-cig - Current Medication List Current Medications: Active Medications Aspirin (Asa -) 81 mg PO DAILY [facility] Last Admin: 02/21/18 09:00 Dose: 81 mg Clopidogrel Bisulfate (Plavix -) 75 mg PO DAILY [facility] Last Admin: 02/21/18 17:28 Dose: 75 mg Metoprolol Succinate (Toprol Xl -) 25 mg PO DAILY [facility] Last Admin: 02/21/18 12:16 Dose: 25 mg Ranolazine (Ranexa -) 500 mg PO BID [facility] Last Admin: 02/21/18 21:33 Dose: 500 mg Rosuvastatin Calcium (Crestor -) 10 mg PO HS [facility] Last Admin: 02/21/18 21:33 Dose: 10 mg - Objective Vital Signs: Vital Signs Temperature 97.5 F L 02/22/18 06:00 Pulse Rate 60 02/22/18 06:00 Respiratory Rate 18 02/22/18 06:00 Blood Pressure 128/70 02/22/18 06:00 O2 Sat by Pulse Oximetry (%) 97 02/21/18 21:00 Constitutional: Yes: Well Nourished, No Distress Eyes: No: Sclera Icterus HENT: No: Nasal Congestion Cardiovascular: Yes: Regular Rate and Rhythm, S1, S2, Other (PMI non diplaced). No: Gallop, Murmur Respiratory: Yes: CTA Bilaterally. No: Accessory Muscle Use, Rales, Wheezes Gastrointestinal: Yes: Normal Bowel Sounds, Soft. No: Tenderness Musculoskeletal: Yes: Other (No kyphosis) Extremities: No: Cold Edema: No Integumentary: No: Jaundice Neurological: Yes: Alert, Oriented (x3) Psychiatric: No: Agitated Labs: CBC, BMP 02/20/18 06:00 02/20/18 06:00 INR, PTT INR 1.10 (0.83-1.09) H 02/19/18 11:53 Assessment/Plan ecg: sr, 1st avb, rbbb, no sig change 12/2015 echo 03/2017: mild lvh, nl lv/rv, no sig valve path carotids 01/2018: 60-79% LICA tele: NSR a/p: 72 m hx cad s/p remote pci, htn, hld, here with ams. acute cva: -dr cazares, neuro, consult appreciated: clinically with mild motor and sensory mixed aphasia, imaging reveals MCA territory infarct that appears embolic given infarcts presenting with pure aphasias and of this particular appearance tend to be embolic. -telemetry thus far no afib/flutter--from CV point of view, would not recommend starting AC agent in absence of documented afib, but pt should have loop recorder implanted as outpatient -carotids reported as showing 60-79% LICA stenosis--rec vascular consult, though may need neuro input as well (i.e. whether this lesion is "symptomatic" or "asymptomatic"); disc'd with dr mejia. -tele monitoring as doing -pt remains on asa and effient as per outpt slope runner. Would continue same for now. -hi intensity statin as doing (rosuva 20) htn: -controlled -toprol 25 qd started here, continue same plan hld: -statin started here (LDL 130s, acute cva) cad s/p remote pci: -sees dr dean as outpt -no signs acs -nl lvef -no anginal sxs -cont outpt meds dapt, ranexa low dose -rosuvastatin added here (no interaction with ranexa)
[2018-02-22] MEDS: RANOLAZINE E.R. 500 MG TABLET (FP) PO SCH (10:27)
[2018-02-22] MEDS: ASPIRIN 81 MG CHEWABLE TABLETS PO SCH (10:27)
[2018-02-22] MEDS: CLOPIDOGREL BISULFATE 75 MG TABLET (FP) PO SCH (10:27)
[2018-02-22] MEDS: metoPROLOL SUCCINATE 25 MG TAB.SR.24H (FP) PO SCH (10:27)
--- NOTE | 2018-02-22 12:08 | DS ---
Physical Examination Vital Signs: Vital Signs Temperature 98.5 F 02/22/18 10:30 Pulse Rate 73 02/22/18 10:30 Respiratory Rate 18 02/22/18 10:30 Blood Pressure 136/72 02/22/18 10:30 O2 Sat by Pulse Oximetry (%) 97 02/21/18 21:00 Constitutional: Yes: No Distress Eyes: Yes: WNL HENT: Yes: WNL Neck: Yes: WNL Cardiovascular: Yes: WNL Respiratory: Yes: WNL Gastrointestinal: Yes: WNL Musculoskeletal: Yes: WNL Extremities: Yes: WNL Edema: No Peripheral Pulses WNL: Yes Integumentary: Yes: WNL Wound/Incision: Yes: Clean/Dry Neurological: Yes: Confusion ...Motor Strength: WNL Psychiatric: Yes: Other Labs: CBC, BMP 02/20/18 06:00 02/20/18 06:00 Discharge Summary Reason For Visit: NON HEMORRHAGE, CVA Current Active Problems Non-hemorrhagic cerebrovascular accident (CVA) (Acute) Procedures: Principal: CT HEAD Hospital Course: ADMITTED NON-HEMMORHAGIC STROKE, APHASIA, MONITORED NO ATRIAL FIBRILLATION, WILL NEED F/U WITH CARDIOLOGY AND NEUROLOGY, NO INTERVENTIONS AT THIS TIME. Condition: Stable - Instructions Diet, Activity, Other Instructions: LOW FAT/LOW SALT DIET HOME PT/PRIME CARE WILL NEED CAROTID DOPPLER FOR F/U IN 3-6 MONTHS NEUROLOGY AND CARDIOLOGY FOLLOW UP Referrals: Elio Johnston MD [Primary Care Provider] - Disposition: VNS/HOME HEALTH CARE - Home Medications Comprehensive Discharge Medication List: Ambulatory Orders Aspirin 81 mg PO DAILY 04/07/17 Prasugrel HCl [Effient] 10 mg PO BID 04/07/17 Ranolazine [Ranexa] 500 mg PO BID 04/07/17 Aspirin [ASA -] 81 mg PO DAILY tab.chew 02/22/18 Metoprolol Succinate [Toprol XL -] 25 mg PO DAILY #30 tab.sr.24h 02/22/18 Prasugrel Hydrochloride [Effient -] 10 mg PO BID tab 02/22/18 Prasugrel Hydrochloride [Effient -] 10 mg PO DAILY tab 02/22/18 Ranolazine [Ranexa -] 500 mg PO BID #0 tab 02/22/18 Rosuvastatin [Crestor -] 20 mg PO HS #30 tablet 02/22/18
--- NOTE | 2018-02-22 12:44 | PN ---
Progress Note (short form) - Note Progress Note: discussed with dr muñoz, patient must be seen by vascular surgery and neurology before discharge.
[2018-02-22 14:36] VITALS: BP 121/54; PULSE 67; TEMP 97.9
--- NOTE | 2018-02-22 15:09 | ECHO ---
Name: SANDRA CORRALES Exam:Adult Echocardiogram Study Date: 02/22/2018 10:45 AM Age: 72 yrs Reason For Study: CVA Height: 64 in Weight: 182 lb BSA: 1.9 m2 MMode/2D Measurements & Calculations IVSd: 0.74 cm Ao root diam: 3.3 cm LVIDd: 4.6 cm LA dimension: 3.5 cm LVIDs: 2.9 cm ACS: 1.9 cm LVPWd: 0.77 cm IVSs: 1.1 cm LVPWs: 1.0 cm EDV(Teich): 96.1 ml ESV(Teich): 32.5 ml Doppler Measurements & Calculations MV E max ashkan: 45.2 cm/sec Ao V2 max: 96.4 cm/sec MV A max ashkan: 60.2 cm/sec Ao max P.7 mmHg MV E/A: 0.75 Ao V2 mean: 69.7 cm/sec Ao mean P.2 mmHg Ao V2 VTI: 19.1 cm Med Peak E' Ashkan: 5.4 cm/sec RAP systole: 10.0 mmHg Med E/e': 8.4 Lat Peak E' [place]: 4.9 cm/sec Lat E/e': 9.3 Procedure A complete two-dimensional transthoracic echocardiogram was performed (2D, M-mode, Doppler and color flow Doppler). Left Ventricle The left ventricle is normal in size. Left ventricular systolic function is normal. Ejection Fraction = 60- 65%. Grade I diastolic dysfunction, (abnormal relaxation pattern). Ratio E/E'= 8. No regional wall mo tion abnormalities noted. Right Ventricle The right ventricle is normal size. The right ventricular systolic function is normal. Atria The left atrial size is normal. Right atrial size is normal. Mitral Valve The mitral valve is normal in structure and function. There is no mitral regurgitation noted. Tricuspid Valve The tricuspid valve is normal in structure and function. No tricuspid regurgitation. Aortic Valve The aortic valve is normal in structure and function. No aortic regurgitation is present. Pulmonic Valve The pulmonic valve is not well visualized. Great Vessels The aortic root is normal size. Pericardium/Pleura There is no pericardial effusion. Interpretation Summary The left ventricle is normal in size. Left ventricular systolic function is normal. No regional wall motion abnormalities noted. Ejection Fraction = 60-65%. Grade I diastolic dysfunction, (abnormal relaxation pattern). Ratio E/E'= 8 The right ventricular systolic function is normal. The left atrial size is normal. Right atrial size is normal. No significant valvular regurgitations are seen There is no pericardial effusion. Previous study is not available for comparison Roosevelt Valle MD 02/22/2018 03:08 PM
--- NOTE | 2018-02-22 15:55 | PN ---
Progress Note (short form) - Note Progress Note: discussed with cardiology and neurology. patient will continue asa 81mg daily and we will add xarelto 20mg daily. stop effient and stop plavix therapy now. discharge home. follow up in 2 days with cardiology
== END 2018-02-22 16:50 | disposition home health service (06) | DRG 65 ==
LOC: JER 11:22 → JERBED 14:10 → J4S 16:10 → JSAMEDAYSX 16:30 → J4S 16:35
PROVIDERS: ADMIT Family Medicine; ATTEND Family Medicine
DX: I63.9 Cerebral infarction, unspecified (principal); I25.110 Atherosclerotic heart disease of native coronary artery with unstable angina pectoris; E78.5 Hyperlipidemia, unspecified; I10 Essential (primary) hypertension; R29.703 NIHSS score 3; Z98.61 Coronary angioplasty status; G47.33 Obstructive sleep apnea (adult) (pediatric); I65.22 Occlusion and stenosis of left carotid artery; I45.10 Unspecified right bundle-branch block; I44.0 Atrioventricular block, first degree; R47.01 Aphasia
CPT/HCPCS: 36415; 70450-TC; 80053; 80061; 81003; 82465; 82550; 83036; 83718; 83721; 84478; 84484; 85025; 85027; 85610; 86850; 86900; 86901; 87086; 93005; 93010; 93306-TC; 93880-TC; 97116-GP; 97161-GP; 99284-25

== ENCOUNTER 2018-04-11 11:37 | Emergency (ER) | payer OTHER, BC ==
[2018-04-11 11:54] VITALS: TEMP 98.9; BMI 29.9
--- NOTE | 2018-04-11 12:17 | PDOC ---
History of Present Illness - General Chief Complaint: Pain, Acute Stated Complaint: ABD PAIN / URINATING BLOOD Time Seen by Provider: 04/11/18 11:51 History Source: Patient, Family ( and daughter at bedside. ), Old Records Exam Limitations: No Limitations - History of Present Illness Initial Comments: HPI: 73 y/o male presenting to [facility] complaining of abdominal pain and bloody urine. Symptoms started with hematuria earlier last week. Describes urine as bright red without clotting material. Denies dysuria or increased frequency. Abdominal pain has progressively worsened over the past two days. Acutely worsened last night. Pain is in the lower right quadrant and radiates to right flank. Denies trauma to the area. Pt endorses a remote history of nephrolithiasis. Follows with urologist Dr. Gustavo Ruiz. Was evaluated in clinic last week and scheduled for a CT next week. Spoke to Dr. Ruiz this morning about pain and urged to present to the emergency department. Pt takes Apixaban (Eliquis) and ASA. PCP: Dr. Johnston Urologist: Dr. 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), difficulty with recall timeline afterwards per family - CAD s/p stents x3 (on Eliquis and 81 mg aspirin) - HTN - HLD - Vasovagal syncope Past History - Past Medical History Allergies/Adverse Reactions: Allergies Allergy/AdvReac Type Severity Reaction Status Date / Time codeine [Codeine] AdvReac Verified 02/19/18 11:26 Home Medications: Ambulatory Orders Aspirin 81 mg PO DAILY 04/07/17 Ranolazine [Ranexa] 500 mg PO BID 04/07/17 Aspirin [ASA -] 81 mg PO DAILY tab.chew 02/22/18 Metoprolol Succinate [Toprol XL -] 25 mg PO DAILY #30 tab.sr.24h 02/22/18 Ranolazine [Ranexa -] 500 mg PO BID #0 tab 02/22/18 Rivaroxaban [Xarelto -] 20 mg PO DAILY #30 tablet 02/22/18 Rosuvastatin [Crestor -] 20 mg PO HS #30 tablet 02/22/18 Tamsulosin HCl [Flomax] 0.4 mg PO DAILY #7 capsule 04/11/18 Ubiquinol [Active-Q] 200 mg PO DAILY 04/11/18 Anemia: No Asthma: No Cancer: No Cardiac Disorders: Yes (CAD, STENTS x3, ICD) CVA: No COPD: No CHF: No Dementia: No Diabetes: No GI Disorders: No Disorders: No HTN: Yes Hypercholesterolemia: Yes Liver Disease: No Seizures: No Thyroid Disease: No - Surgical History Abdominal Surgery: No Appendectomy: No Cardiac Surgery: Yes (3 stents) Cholecystectomy: No Lung Surgery: No Neurologic Surgery: No Orthopedic Surgery: Yes (RIGHT HIP REPLACEMENT) - Suicide/Smoking/Psychosocial Hx Smoking Status: No Smoking History: Never smoked Have you smoked in the past 12 months: No Number of Cigarettes Smoked Daily: 0 If you are a former smoker, when did you quit?: 20 YEARS AGO Cigars Per Day: 0 Information on smoking cessation initiated: No Hx Alcohol Use: No Drug/Substance Use Hx: No Substance Use Type: None Hx Substance Use Treatment: No Review of Systems - Review of Systems Able to Perform ROS?: Yes Comments:: In addition to that documented in the HPI above, the additional ROS was obtained : Constitutional: Denies fevers or chills Head: Denies headache ENMT: Denies sore throat or gum bleeding CV: Denies chest pain Resp: Denies SOB GI: Denies vomiting or diarrhea. Denies blood in stool or dark stool. : Denies painful urination MSK: Denies recent trauma Skin: Denies new rashes Neuro: Denies new numbness or tingling or weakness Endocrine: Denies polyuria Heme: Denies bleeding or bruising *Physical Exam - Vital Signs Last Vital Signs Temp Pulse Resp BP Pulse Ox 98.9 F 80 16 157/82 97 04/11/18 11:40 04/11/18 11:40 04/11/18 11:40 04/11/18 11:40 04/11/18 11:40 - Physical Exam Comments: Constitutional: Well-developed, well-nourished adult male in no acute distress or obvious discomfort. Found semi-fowlers on hospital bed. Alert and oriented x4 ; some trouble recalling timeline of events of past week. Answered all questions appropriately and completely. Speech was non-labored, non-pressured. Head: Normocephalic. No obvious external signs of trauma. Eyes: Sclerae white. Conjunctiva moist and not injected. Ears: Hearing grossly intact. Nose: No nasal discharge or bleeding. Throat: Oral cavity and pharynx normal. No inflammation, swelling, exudate, or lesions. Neck: Supple, trachea is midline. Cardiovascular / Chest: Regular rate and regular rhythm. No murmur, rubs, clicks, or gallops. Peripheral pulses: radial pulses full. Respiratory: Breathing unlabored. Equal chest rise and fall. Clear to auscultation bilaterally. No stridor, no wheezing, no rhonchi. Gastrointestinal: abdomen is tender in RLQ without grimace, rebound, or guarding. Globally, abdomen is soft and nondistended. No pulsatile masses. No overlying skin lesions or obvious signs of trauma. Neuro: Alert and oriented. Moving all four extremities spontaneously. Skin: Warm, dry, and intact. Bruise to right AC. No active bleeding. : No R or L CVA tenderness. Psych: Affect: appropriate. Mood: normal. MALE GENITALIA: Genital exam revealed normally developed male genitalia. Circumcised penis. No scrotal mass or tenderness, no hernias or inguinal lymphadenopathy. No perineal or perianal abnormalities are seen. No genital lesions or urethral discharge. No blood in region. Medical Student chaperoned exam. Moderate Sedation - Procedure Monitoring Vital Signs: Procedure Monitoring Vital Signs Temperature 98.9 F 04/11/18 11:40 Pulse Rate 80 04/11/18 11:40 Respiratory Rate 16 04/11/18 11:40 Blood Pressure 157/82 04/11/18 11:40 O2 Sat by Pulse Oximetry (%) 97 04/11/18 11:40 ED Treatment Course - LABORATORY CBC & Chemistry Diagram: 04/11/18 13:25 04/11/18 13:25 Medical Decision Making - Medical Decision Making *Reviewed vital signs, nursing notes, and prior visit documentation (if available). 73 y/o male presenting with right lower quadrant and right flank pain x2 days with one week of hematuria. On apixaban. Denies difficulty urinating or passing clots. Afebrile. Vitals unremarkable for hypotension or tachycardia. Physical exam as described above. No acute abdomen. Spiral CT showed 4mm distal right ureteral calculus at the pelvis with mild to moderate hydronephrosis. UA grossly bloody but unremarkable for pyuria, nitrites, or leukocyte esterase. Urine culture pending. Mild leukocytosis without left shift, likely reactionary. Low suspicion for hemorrhagic cystitis or pyonephritis. 14:29 Telephone page sent to Dr. Ruiz through answering service. Awaiting call back. 14:[address] Ruiz. Verbally appraised of the pts HPI, ED course, and current plan of management. Requests pt be discharged with FloMax prescription. Pt to f/u in clinic. Pt reassessed. States pain has continued to improve during course of visit without intervention. Continue to suspect nephrolithiasis. Discussed imaging and laboratory results with pt. Answered all questions. Provided return precautions. Pt expressed verbal understanding and agreement with plan to discharge home with outpatient follow up. Provided copy of radiology report. *DC/Admit/Observation/Transfer Diagnosis at time of Disposition: Calculus of kidney - Discharge Dispostion Disposition: HOME Condition at time of disposition: Good Decision to Admit order: No - Prescriptions Prescriptions: Tamsulosin HCl [Flomax] 0.4 mg PO DAILY #7 capsule - Referrals Referrals: Elio Johnston MD [Primary Care Provider] - - Patient Instructions Printed Discharge Instructions: DI for Kidney Stones Additional Instructions: You were seen today for abdominal pain and bloody urine. Your CT scan showed a right sided kidney stone. This is likely the source of your symptoms. It may pass by itself. I have sent a prescription for FloMax to your pharmacy. This may help the stone pass. Continue taking all of your other prescribed medications. Follow up with Dr. Ruiz in the next 3-4 days. You will need to call to make an appointment. A copy of todays results are attached to this packet. Take it to the appointment so your doctor can review them. You can take over the counter Tylenol as needed for pain. Take as directed on the package insert. Do not exceed the recommended dosage. Go to the nearest emergency department if your condition worsens or you feel like you need additional emergency evaluation. Print Language: SWISS - Post Discharge Activity
[2018-04-11 13:30] LABS: BASO % 0.4 % (0-2.0); EOS % 0.8 % (0-4.5); HEMATOCRIT 40.4 % (35.4-49); HEMOGLOBIN 14.2 GM/dL (11.7-16.9); LYMPH % 11.3 % (8-40); MCH 35.3 pg (25.7-33.7); MCHC 35.1 g/dl (32.0-35.9); MEAN CELL VOLUME 100.5 fl (80-96); MEAN PLT VOLUME 9.6 fl (7.5-11.1); MONO % 12.2 % (3.8-10.2); NEUT % 75.3 % (42.8-82.8); PLATELET COUNT 171 K/MM3 (134-434); RBC 4.02 M/mm3 (4.00-5.60); RDW 12.8 % (11.9-15.9); WHITE BLOOD COUNT 12.4 K/mm3 (4.0-10.0)
[2018-04-11 13:34] LABS: URINE APPEARANCE CLOUDY; URINE BILIRUBIN NEGATIVE (<2.0 mg/dL); URINE COLOR AMBER; URINE GLUCOSE (UA) NEGATIVE (NEGATIVE); URINE KETONE NEGATIVE (NEGATIVE); URINE LEUK ESTERASE NEGATIVE (NEGATIVE); URINE NITRITE NEGATIVE (NEGATIVE); URINE PROTEIN 2+ (NEGATIVE); URINE UROBILINOGEN NEGATIVE mg/dL (0.2-1.0)
[2018-04-11 13:53] LABS: URINE MUCUS RARE; YEAST MANY
[2018-04-11 13:58] LABS: ALBUMIN 3.5 g/dl (3.4-5.0); ALK PHOS 81 U/L (45-117); ANION GAP 4 MMOL/L (8-16); BILIRUBIN,TOTAL 0.6 mg/dL (0.2-1); BLOOD UREA NITROGEN 23 mg/dL (7-18); CALCIUM 8.7 mg/dL (8.5-10.1); CHLORIDE 108 mmol/L (98-107); CO2 28 mmol/L (21-32); CREATININE 1.5 mg/dL (0.55-1.3); GLUCOSE,RANDOM 107 mg/dL (74-106); POTASSIUM 4.4 mmol/L (3.5-5.1); SGOT/AST 23 U/L (15-37); SGPT/ALT 21 U/L (13-61); SODIUM 141 mmol/L (136-145); TOT PROT 7.2 g/dl (6.4-8.2)
--- NOTE | 2018-04-11 14:17 | PDOC ---
Attending Attestation - Resident Resident Name: John Mann - ED Attending Attestation I have performed the following: I have examined & evaluated the patient, The case was reviewed & discussed with the resident, I agree w/resident's findings & plan, Exceptions are as noted - HPI HPI: 04/11/18 14:15 The patient is a 73 year old male with a significant past medical history of nephrolithiasis, CAD (s/p stents x3), hypertension, hyperlipidemia, right hip replacement who presents to the emergency department with right sided abdominal pain for about 2 days. The patient states that his pain is located in his right flank region. He also reports some associated hematuria for 1 week (on xarelto and aspirin). The patient endorses history of stones. He denies any other symptoms of CP, SOB, N/V/D, fevers, headache, weakess, dizziness. - Physicial Exam PE: 04/11/18 14:15 agree with resident exam - Medical Decision Making 04/11/18 14:17 73yo M with MMP, on xarelto presents to the ED with 1 week hematura w/o clots and 2 days of R flank pain. W/u revealing of 4mm stone proximal to R UVJ with mild-mod hydro. Plan to discuss with pt's urologist and reassess. 04/11/18 15:16 Dr. Mann spoke wiht pt's urologist who recommends flomax and DC if pain is well controlled Pt w/o bleeding in ED, pain well controlled, tolerating PO Has f/u with urologist REturn precautions discussed with pt, , daughter, they express understanding I discussed the physical exam findings, ancillary test results and final diagnoses with the patient. I answered all of the patient's questions. The patient was satisfied with the care received and felt comfortable with the discharge plan and treatment plan. The patient will call their primary care physician within 24 hours to arrange follow-up and will return to the Emergency Department with any new, persistent or worsening symptoms.
[2018-04-11] MEDS ORDERED: SODIUM CHLORIDE 0.9% 500 ML INFUS.BAG IV ONE (14:27)
[2018-04-11 14:36] LABS: INR 3.19 (0.83-1.09); PROTHROMBIN TIME (PATIENT) 38.1 SEC (9.7-13.0)
[2018-04-11 14:38] LABS: ACTIVATED PTT 43.3 SECONDS (25.2-36.5)
[2018-04-11 15:41] VITALS: BP 126/70; PULSE 67
== END 2018-04-11 15:41 | disposition home or self-care (01) ==
LOC: JER 11:37
DX: N13.2 Hydronephrosis with renal and ureteral calculous obstruction (principal); Z87.442 Personal history of urinary calculi; I25.10 Atherosclerotic heart disease of native coronary artery without angina pectoris; I10 Essential (primary) hypertension; Z95.5 Presence of coronary angioplasty implant and graft; Z79.01 Long term (current) use of anticoagulants; E78.5 Hyperlipidemia, unspecified; Z96.641 Presence of right artificial hip joint; I69.898 Other sequelae of other cerebrovascular disease
CPT/HCPCS: 36415; 74176; 80053; 81003; 81015; 85025; 85610; 85730; 86850; 86900; 86901; 87086; 99283-25

== ENCOUNTER 2018-10-25 11:40 | Emergency (ER) | payer OTHER, BC ==
[2018-10-25 12:01] VITALS: BP 147/74; PULSE 59; TEMP 97.7; BMI 29.1
--- NOTE | 2018-10-25 12:03 | PDOC ---
History of Present Illness - General Chief Complaint: Pain Stated Complaint: PAIN TO RIGHT LOWER BACK Time Seen by Provider: 10/25/18 11:52 History Source: Patient Exam Limitations: No Limitations - History of Present Illness Initial Comments: 10/25/18 11:58 73 y/o male fell 4 days ago onto right flank area, now with increased pain. Denies dysuria or blood in urine. Has not taken anything for the pain. No LOC, chest pain or SOB. No N/V/D/C. Patient states he was fine, but today has increased pain. No fever or chills. Hx of kidney stone back in March. 10/25/18 12:35 Severity: mild Associated Symptoms: denies: fever/chills, nausea/vomiting, shortness of breath Past History - Past Medical History Allergies/Adverse Reactions: Allergies Allergy/AdvReac Type Severity Reaction Status Date / Time codeine [Codeine] AdvReac Verified 02/19/18 11:26 Home Medications: Ambulatory Orders Ranolazine [Ranexa] 500 mg PO BID 04/07/17 Aspirin [ASA -] 81 mg PO DAILY tab.chew 02/22/18 Metoprolol Succinate [Toprol XL -] 25 mg PO DAILY #30 tab.sr.24h 02/22/18 Rivaroxaban [Xarelto -] 20 mg PO DAILY #30 tablet 02/22/18 Rosuvastatin [Crestor -] 20 mg PO HS #30 tablet 02/22/18 Ubiquinol [Active-Q] 200 mg PO DAILY 04/11/18 Cholecalciferol (Vitamin D3) [Vitamin D] 2,000 unit PO DAILY 10/25/18 Cyanocobalamin [Vitamin B12 -] 1,000 mcg PO DAILY 10/25/18 Anemia: No Asthma: No Cancer: No Cardiac Disorders: Yes (CAD, STENTS x3, ICD) CVA: No COPD: No CHF: No Dementia: No Diabetes: No GI Disorders: No Disorders: No HTN: Yes Hypercholesterolemia: Yes Liver Disease: No Seizures: No Thyroid Disease: No - Surgical History Abdominal Surgery: No Appendectomy: No Cardiac Surgery: Yes (3 stents) Cholecystectomy: No Lung Surgery: No Neurologic Surgery: No Orthopedic Surgery: Yes (RIGHT HIP REPLACEMENT) - Suicide/Smoking/Psychosocial Hx Smoking Status: No Smoking History: Never smoked Have you smoked in the past 12 months: No Number of Cigarettes Smoked Daily: 0 If you are a former smoker, when did you quit?: 20 YEARS AGO Cigars Per Day: 0 Hx Alcohol Use: No Drug/Substance Use Hx: No Substance Use Type: None Hx Substance Use Treatment: No Review of Systems - Review of Systems Able to Perform ROS?: Yes Is the patient limited Frisian proficient: No Constitutional: No: Chills, Fever Respiratory: No: Cough, Shortness of Breath Cardiac (ROS): No: Chest Pain ABD/GI: No: Diarrhea, Nausea, Vomiting : Yes: Flank Pain. No: Dysuria, Hematuria Integumentary: No: Bruising Neurological: No: Paresthesia Hematologic/Lymphatic: No: Easy Bruising All Other Systems: Reviewed and Negative *Physical Exam - Physical Exam General Appearance: Yes: Nourished, Appropriately Dressed. No: Apparent Distress HEENT: positive: EOMI, VÍCTOR, Normal ENT Inspection, Normal Voice, Symmetrical, Pharynx Normal Neck: positive: Trachea midline, Normal Thyroid, Supple. negative: Tender, Rigid Respiratory/Chest: positive: Lungs Clear, Normal Breath Sounds, Other (no tenderness to right thoracic anterior and posterior ribs). negative: Chest Tender, Respiratory Distress Cardiovascular: positive: Regular Rhythm, Regular Rate, S1, S2. negative: Edema , JVD, Murmur Vascular Pulses: Femoral (R): 4+, Femoral (L): 4+, Carotid (R): 4+, Carotid (L) : 4+, Dorsalis-Pedis (R): 4+, Doralis-Pedis (L): 4+ Gastrointestinal/Abdominal: positive: Normal Bowel Sounds, Flat, Soft. negative : Tender, Organomegaly, Pulsatile Mass Lymphatic: negative: Adenopathy, Tenderness, Other Musculoskeletal: positive: Normal Inspection, Other (no eccymosis, or spinous process tenderness, full ROM, no tenderness to right lumbar or thoracic paravertebral muscles, no swelling, strength 5+/5 b/l in UE and LE, no focal deficits noted). negative: CVA Tenderness Extremity: positive: Normal Capillary Refill, Normal Inspection, Normal Range of Motion, Pelvis Stable (no tenderness to right or lift hip on palpation, full ROM) Integumentary: positive: Normal Color, Dry, Warm. negative: Rash, Swelling, Ecchymosis Neurologic: positive: lei seller II-XII NML intact, Fully Oriented, Alert, Normal Mood/ Affect, Normal Response, Motor Strength 5/5, Other (neg SLR test b/l) ED Treatment Course - ADDITIONAL ORDERS Additional order review: 10/25/18 12:05 Pleasant 73 y/o male with rigth flank pain after fall 4 days ago. Will obtain UA and CT lower/thoracic back, r/o retroperitoneal bleed No rib tenderness or back tenderness on palpation 10/25/18 13:43 Pt is doing well, does not wish to take muscle relaxant Will take Tylenol/Motrin CT abd/pelvis: negative for stone/fracture Patient is in agreement with plan - RADIOLOGY Radiology Studies Ordered: Category Date Time Status SPIRAL- RENAL-STONE CT [CT] Stat CT Scan 10/25/18 11:56 Ordered *DC/Admit/Observation/Transfer Diagnosis at time of Disposition: Back contusion Qualifiers: Encounter type: initial encounter Laterality: right Qualified Code(s): S20.221A - Contusion of right back wall of thorax, initial encounter - Discharge Dispostion Disposition: HOME Condition at time of disposition: Stable Decision to Admit order: No - Referrals Referrals: Elio Johnston MD [Primary Care Provider] - - Patient Instructions Printed Discharge Instructions: DI for Contusion Additional Instructions: Ice, Motrin, rest Follow up with PMD If worsen return to ER - Post Discharge Activity
== END 2018-10-25 14:21 | disposition home or self-care (01) ==
LOC: FER 11:40
DX: S20.221A Contusion of right back wall of thorax, initial encounter (principal); X58.XXXA Exposure to other specified factors, initial encounter; Y93.89 Activity, other specified; Y92.89 Other specified places as the place of occurrence of the external cause; Z87.891 Personal history of nicotine dependence; Z95.5 Presence of coronary angioplasty implant and graft; I10 Essential (primary) hypertension; E78.00 Pure hypercholesterolemia, unspecified; I25.10 Atherosclerotic heart disease of native coronary artery without angina pectoris
CPT/HCPCS: 74176-TC; 81003; 99282-25

== ENCOUNTER 2019-03-02 07:06 | Emergency (ER) | payer OTHER, BC ==
[2019-03-02 07:28] VITALS: TEMP 98.2; BMI 29.9
[2019-03-02] MEDS ORDERED: ACETAMINOPHEN 325 MG TABLET (FP) PO ONE (07:47)
[2019-03-02] MEDS ORDERED: LIDOCAINE 5% TOPICAL PATCH TP ONE (07:47)
[2019-03-02] MEDS ORDERED: LIDOCAINE 5% TOPICAL PATCH ONE (07:52)
[2019-03-02] MEDS ORDERED: ACETAMINOPHEN 325 MG TABLET (FP) ONE (07:52)
--- NOTE | 2019-03-02 08:06 | PDOC ---
History of Present Illness - General Chief Complaint: Injury Stated Complaint: R KNEE INJURY S/P FALL Time Seen by Provider: 03/02/19 07:30 History Source: Patient Exam Limitations: No Limitations Past History - Past Medical History Allergies/Adverse Reactions: Allergies Allergy/AdvReac Type Severity Reaction Status Date / Time codeine [Codeine] AdvReac Verified 03/02/19 08:39 Home Medications: Ambulatory Orders Ranolazine [Ranexa] 500 mg PO BID 04/07/17 Aspirin [ASA -] 81 mg PO DAILY tab.chew 02/22/18 Metoprolol Succinate [Toprol XL -] 25 mg PO DAILY #30 tab.sr.24h 02/22/18 Rivaroxaban [Xarelto -] 20 mg PO DAILY #30 tablet 02/22/18 Rosuvastatin [Crestor -] 20 mg PO HS #30 tablet 02/22/18 Ubiquinol [Active-Q] 200 mg PO DAILY 04/11/18 Cholecalciferol (Vitamin D3) [Vitamin D] 2,000 unit PO DAILY 10/25/18 Cyanocobalamin [Vitamin B12 -] 1,000 mcg PO DAILY 10/25/18 Anemia: No Asthma: No Cancer: No Cardiac Disorders: Yes (CAD, STENTS x3, ICD) CVA: No COPD: No CHF: No Dementia: No Diabetes: No GI Disorders: No Disorders: No HTN: Yes Hypercholesterolemia: Yes Liver Disease: No Seizures: No Thyroid Disease: No - Surgical History Abdominal Surgery: No Appendectomy: No Cardiac Surgery: Yes (3 stents) Cholecystectomy: No Lung Surgery: No Neurologic Surgery: No Orthopedic Surgery: Yes (RIGHT HIP REPLACEMENT) - Immunization History Immunization Up to Date: Yes - Psycho Social/Smoking Cessation Hx Smoking Status: No Smoking History: Never smoked Have you smoked in the past 12 months: No Number of Cigarettes Smoked Daily: 0 If you are a former smoker, when did you quit?: 20 YEARS AGO Cigars Per Day: 0 Information on smoking cessation initiated: No Hx Alcohol Use: No Drug/Substance Use Hx: No Substance Use Type: None Hx Substance Use Treatment: No *Physical Exam - Vital Signs Last Vital Signs Temp Pulse Resp BP Pulse Ox 98.2 F 79 18 162/79 96 03/02/19 07:22 03/02/19 07:22 03/02/19 07:22 03/02/19 07:22 03/02/19 07:22 - Physical Exam General Appearance: No: Apparent Distress HEENT: positive: VÍCTOR Respiratory/Chest: positive: Lungs Clear, Normal Breath Sounds, Other (L chest wall ecchymosis, along anterior axillary line, around 4th-5th rib). negative: Respiratory Distress, Accessory Muscle Use Cardiovascular: positive: Regular Rhythm, Regular Rate, S1, S2. negative: Murmur Gastrointestinal/Abdominal: positive: Normal Bowel Sounds, Soft. negative: Tender, Distended, Guarding, Rebound Musculoskeletal: positive: Other (limited flexion of R knee, minimal swelling of R knee compared to left, no effusion, no deformity of extremity noted, sensation intact) Neurologic: positive: Fully Oriented, Alert, Normal Mood/Affect ED Treatment Course - RADIOLOGY Radiology Studies Ordered: Category Date Time Status CHEST CT WITHOUT CONTRAST [CT] Stat CT Scan 03/02/19 07:47 Ordered KNEE 3 POS-RIGHT [RAD] Stat Radiology 03/02/19 07:47 Ordered Medical Decision Making - Medical Decision Making 73 y/o F hx of HTN, HLD, R hip replacement, CAD s/p PCI x3, TIA/CVA 01/2018 (on Xarelto) presents s/p mechanical fall last night. Patient was going downstairs and it was dark and missed a couple of steps, falling forward, landing in a chair. Patient denies head trauma. Is c/o R knee pain and bruise along L chest wall. denies LOC, sob, cp, abd pain, n/v, other injuries R/O fracture Plan: R knee xray, chest CT without contrast, Tylenol, lido patch 03/02/19 08:03 R knee xray with degenerative changes, no fracture R knee hayden wrapped; will refer to ortho CT chest shows no acute fracture; incidental chronic fractures along R side ( patient mentions he is very active and sometimes does things he shouldn't like lifting heavy things, etc) Patient has f/u with his PCP tomorrow patient does not want rx for lidocaine patch; states will take tylenol if he needs something 03/02/19 10:36 Discharge - Discharge Information Problems reviewed: Yes Clinical Impression/Diagnosis: Fall Qualifiers: Encounter type: initial encounter Qualified Code(s): W19.XXXA - Unspecified fall, initial encounter Right knee injury Qualifiers: Encounter type: initial encounter Qualified Code(s): S89.91XA - Unspecified injury of right lower leg, initial encounter Contusion of rib on left side Qualifiers: Encounter type: initial encounter Qualified Code(s): S20.212A - Contusion of left front wall of thorax, initial encounter Condition: Stable Disposition: HOME - Admission No - Additional Discharge Information Prescription Drug Monitoring Program (I-STOP) results: I-STOP not reviewed - Follow up/Referral Referrals: Abran Chakraborty DO [Staff Physician] - 2 Days Fabian Mcgovern MD [Staff Physician] - 2 Days Elio Johnston MD [Primary Care Provider] - 24 hours - Patient Discharge Instructions Patient Printed Discharge Instructions: DI for Rib Contusion Additional Instructions: Thank you for choosing [facility]. It was a pleasure taking care of you. No new fractures were noted on your left rib wall Take Tylenol 650 mg every 6 hours as needed for pain Apply ice along site of bruise Follow-up with orthopedics regarding your right knee Follow-up with your doctor tomorrow Return to the Emergency Department if your symptoms worsen or persist or have other concerning symptoms. - Post Discharge Activity
[2019-03-02 10:50] VITALS: BP 173/84; PULSE 63
== END 2019-03-02 10:51 | disposition home or self-care (01) ==
LOC: JER 07:06
DX: S20.212A Contusion of left front wall of thorax, initial encounter (principal); S89.91XA Unspecified injury of right lower leg, initial encounter; I10 Essential (primary) hypertension; E78.5 Hyperlipidemia, unspecified; Z79.01 Long term (current) use of anticoagulants; Z86.73 Personal history of transient ischemic attack (TIA), and cerebral infarction without residual deficits; W18.39XA Other fall on same level, initial encounter; Y93.89 Activity, other specified; Y92.89 Other specified places as the place of occurrence of the external cause; Z88.6 Allergy status to analgesic agent
CPT/HCPCS: 71250-TC; 73562-TC-RT-FY; 99281-25

== ENCOUNTER 2020-09-12 15:53 | Inpatient (IN) | payer OTHER, BC ==
[2020-09-12 17:14] LABS: EOS % 0.5 % (0-4.5); PLATELET COUNT 194 10^3/uL (134-434)
[2020-09-12 17:26] LABS: BASO % 0.5 % (0-2.0); HEMOGLOBIN 13.2 GM/dL (11.7-16.9); LYMPH % 6.5 % (8-40); MCH 32.8 pg (25.7-33.7); MCHC 33.8 g/dl (32.0-35.9); MEAN CELL VOLUME 96.9 fl (80-96); MEAN PLT VOLUME 10.3 fl (7.5-11.1); MONO % 8.1 % (3.8-10.2); NEUT % 84.4 % (42.8-82.8); RBC 4.02 M/mm3 (4.00-5.60); RDW 14.1 % (11.9-15.9); WHITE BLOOD COUNT 12.5 K/mm3 (4.0-10.0)
[2020-09-12 17:44] LABS: CHLORIDE 108 mmol/L (98-107); SODIUM 141 mmol/L (136-145)
[2020-09-12 17:46] LABS: CALCIUM 9.2 mg/dL (8.5-10.1)
[2020-09-12 17:48] LABS: ALBUMIN 3.8 g/dl (3.4-5.0); ANION GAP 8 MMOL/L (8-16); BLOOD UREA NITROGEN 25.2 mg/dL (7-18); CO2 25 mmol/L (21-32); GLUCOSE,RANDOM 99 mg/dL (74-106)
[2020-09-12 17:51] LABS: CHOLESTEROL 119 mg/dL (50-200); CREATININE 1.1 mg/dL (0.55-1.3); LDL CHOLESTEROL (ONLY SJRH) 51 mg/dL (5-100); SGOT/AST 22 U/L (15-37); SGPT/ALT 11 U/L (13-61); TRIGLYCERIDES 77 mg/dL (0-150)
[2020-09-12 17:52] LABS: BILIRUBIN,TOTAL 0.5 mg/dL (0.2-1); HDL CHOLESTEROL 56 mg/dL (40-60); TOT PROT 7.6 g/dl (6.4-8.2)
[2020-09-12 17:54] LABS: ALK PHOS 99 U/L (45-117)
[2020-09-12 18:00] LABS: PLATELET ESTIMATE ADEQUATE
[2020-09-12 20:49] LABS: URINE APPEARANCE CLEAR; URINE BILIRUBIN NEGATIVE (NEGATIVE); URINE COLOR YELLOW; URINE GLUCOSE (UA) NEGATIVE (NEGATIVE); URINE KETONE TRACE (NEGATIVE); URINE LEUK ESTERASE NEGATIVE (NEGATIVE); URINE NITRITE NEGATIVE (NEGATIVE); URINE PROTEIN NEGATIVE (NEGATIVE); URINE UROBILINOGEN 0.2 mg/dL (0.2-1.0)
[2020-09-13] MEDS ORDERED: levETIRAcetam 500 MG TABLET (FP) PO ONE (00:23)
[2020-09-13] MEDS ORDERED: ATORVASTATIN CA 40 MG TABLET (FP) ONE (00:23)
[2020-09-13] MEDS: levETIRAcetam 500 MG TABLET (FP) PO SCH ×3 (00:31→21:34)
[2020-09-13] MEDS: ATORVASTATIN CA 40 MG TABLET (FP) PO SCH ×2 (00:31→21:35)
[2020-09-13] MEDS: MEMANTINE HCL 5 MG TABLET (UD) PO SCH ×3 (01:07→21:35)
[2020-09-13] MEDS: RANOLAZINE E.R. 500 MG TABLET (FP) PO SCH ×3 (01:07→21:35)
[2020-09-13 02:21] VITALS: BMI 28.3
[2020-09-13 07:10] LABS: BASO % 0.3 % (0-2.0); HEMATOCRIT 37.3 % (35.4-49); HEMOGLOBIN 12.7 GM/dL (11.7-16.9); LYMPH % 14.2 % (8-40); MCH 33.2 pg (25.7-33.7); MCHC 34.1 g/dl (32.0-35.9); MEAN CELL VOLUME 97.5 fl (80-96); MEAN PLT VOLUME 9.5 fl (7.5-11.1); MONO % 10.6 % (3.8-10.2); NEUT % 72.9 % (42.8-82.8); PLATELET COUNT 156 10^3/uL (134-434); RBC 3.83 M/mm3 (4.00-5.60); RDW 14.2 % (11.9-15.9); WHITE BLOOD COUNT 8.2 K/mm3 (4.0-10.0)
[2020-09-13 07:24] LABS: CHLORIDE 110 mmol/L (98-107); SODIUM 142 mmol/L (136-145)
[2020-09-13 07:39] LABS: ALBUMIN 3.3 g/dl (3.4-5.0); ANION GAP 6 MMOL/L (8-16); BLOOD UREA NITROGEN 16.4 mg/dL (7-18); CALCIUM 8.8 mg/dL (8.5-10.1); CO2 26 mmol/L (21-32); GLUCOSE,RANDOM 94 mg/dL (74-106)
[2020-09-13 07:41] LABS: BILIRUBIN,TOTAL 0.3 mg/dL (0.2-1); CREATININE 0.9 mg/dL (0.55-1.3); HDL CHOLESTEROL 50 mg/dL (40-60)
[2020-09-13 07:42] LABS: ALK PHOS 82 U/L (45-117); CHOLESTEROL 109 mg/dL (50-200); SGOT/AST 16 U/L (15-37); SGPT/ALT 20 U/L (13-61); TOT PROT 6.6 g/dl (6.4-8.2); TRIGLYCERIDES 93 mg/dL (0-150)
[2020-09-13 07:43] LABS: LDL CHOLESTEROL (ONLY SJRH) 44 mg/dL (5-100)
[2020-09-13] MEDS: PANTOPRAZOLE 40 MG TABLET PO SCH (09:40)
[2020-09-13] MEDS: LOSARTAN POTASSIUM 50 MG TABLET PO SCH (09:40)
[2020-09-13] MEDS: ASPIRIN 81 MG CHEWABLE TABLETS PO SCH (09:41)
[2020-09-13] MEDS: SERTRALINE HCL 50 MG TABLET (FP) PO SCH (09:41)
[2020-09-14] MEDS: SERTRALINE HCL 50 MG TABLET (FP) PO SCH (09:55)
[2020-09-14] MEDS: ASPIRIN 81 MG CHEWABLE TABLETS PO SCH (09:55)
[2020-09-14] MEDS: RANOLAZINE E.R. 500 MG TABLET (FP) PO SCH (09:55)
[2020-09-14] MEDS: LOSARTAN POTASSIUM 50 MG TABLET PO SCH (09:55)
[2020-09-14] MEDS: PANTOPRAZOLE 40 MG TABLET PO SCH (09:55)
[2020-09-14] MEDS: MEMANTINE HCL 5 MG TABLET (UD) PO SCH (09:55)
[2020-09-14] MEDS: levETIRAcetam 500 MG TABLET (FP) PO SCH (09:55)
[2020-09-14 10:12] VITALS: BP 121/66; PULSE 64; TEMP 98.3
== END 2020-09-14 13:30 | disposition short-term general hospital (02) | DRG 309 ==
LOC: JER 15:53 → JERBED 18:02 → J4W 09-13 00:59
PROVIDERS: ADMIT Internal Medicine; ATTEND Family Medicine
DX: I45.2 Bifascicular block (principal); E85.4 Organ-limited amyloidosis; I69.351 Hemiplegia and hemiparesis following cerebral infarction affecting right dominant side; I95.1 Orthostatic hypotension; I68.0 Cerebral amyloid angiopathy; G30.9 Alzheimer's disease, unspecified; G31.83 Neurocognitive disorder with Lewy bodies; I10 Essential (primary) hypertension; E78.5 Hyperlipidemia, unspecified; I25.10 Atherosclerotic heart disease of native coronary artery without angina pectoris; I48.0 Paroxysmal atrial fibrillation; K21.9 Gastro-esophageal reflux disease without esophagitis; Z98.61 Coronary angioplasty status
CPT/HCPCS: 36415; 70450-TC; 71045-TC-FY; 80053; 80061; 81003; 82550; 83721; 84132; 84484; 85025; 86850; 86900; 86901; 93005; 93010; 93306-TC; 99285-25; C9803; U0003; U0005

== ENCOUNTER 2020-11-03 11:36 | Inpatient (IN) | payer OTHER, BC ==
[2020-11-03] MEDS ORDERED: SODIUM CHLORIDE 0.9% 500 ML INFUS.BAG IV ONE (12:52)
[2020-11-03 14:08] LABS: BASO % 0.2 % (0-2.0); EOS % 2.2 % (0-4.5); HEMATOCRIT 39.2 % (35.4-49); HEMOGLOBIN 13.4 GM/dL (11.7-16.9); MCHC 34.1 g/dl (32.0-35.9); MEAN CELL VOLUME 99.7 fl (80-96); MEAN PLT VOLUME 9.5 fl (7.5-11.1); MONO % 4.9 % (3.8-10.2); NEUT % 80.7 % (42.8-82.8); PLATELET COUNT 170 10^3/uL (134-434); RBC 3.93 M/mm3 (4.00-5.60); WHITE BLOOD COUNT 7.5 K/mm3 (4.0-10.0)
[2020-11-03 14:32] LABS: CHLORIDE 107 mmol/L (98-107); SODIUM 138 mmol/L (136-145)
[2020-11-03 14:34] LABS: CALCIUM 8.7 mg/dL (8.5-10.1)
[2020-11-03 14:35] LABS: ALBUMIN 3.4 g/dl (3.4-5.0); BLOOD UREA NITROGEN 15.6 mg/dL (7-18); CO2 27 mmol/L (21-32); GLUCOSE,RANDOM 126 mg/dL (74-106); MAGNESIUM 2.1 mg/dL (1.8-2.4)
[2020-11-03 14:38] LABS: CREATININE 1.2 mg/dL (0.55-1.3); SGOT/AST 65 U/L (15-37); SGPT/ALT 9 U/L (13-61)
[2020-11-03 14:40] LABS: BILIRUBIN,TOTAL 0.5 mg/dL (0.2-1); TOT PROT 7.5 g/dl (6.4-8.2)
[2020-11-03 14:41] LABS: ALK PHOS 92 U/L (45-117)
[2020-11-03 14:57] LABS: PH,URINE 5.5 (5.0-8.0); URINE APPEARANCE CLEAR; URINE BILIRUBIN NEGATIVE (NEGATIVE); URINE COLOR YELLOW; URINE GLUCOSE (UA) NEGATIVE (NEGATIVE); URINE KETONE NEGATIVE (NEGATIVE); URINE LEUK ESTERASE NEGATIVE (NEGATIVE); URINE NITRITE NEGATIVE (NEGATIVE); URINE PROTEIN NEGATIVE (NEGATIVE); URINE UROBILINOGEN 0.2 mg/dL (0.2-1.0)
[2020-11-03 15:30] LABS: ANION GAP 3 MMOL/L (8-16)
[2020-11-03 16:41] LABS: INR 1.13 (0.83-1.09); PROTHROMBIN TIME (PATIENT) 13.6 SEC (9.7-13.0)
[2020-11-03 16:43] LABS: ACTIVATED PTT 27.4 SECONDS (25.2-36.5)
[2020-11-03 17:07] LABS: CALCIUM 8.9 mg/dL (8.5-10.1)
[2020-11-03 17:08] LABS: ALBUMIN 3.6 g/dl (3.4-5.0); BLOOD UREA NITROGEN 14.6 mg/dL (7-18)
[2020-11-03 17:13] LABS: BILIRUBIN,TOTAL 0.4 mg/dL (0.2-1); TOT PROT 7.2 g/dl (6.4-8.2)
[2020-11-03] MEDS ORDERED: PT OWN MED DRAWER 7, Y5N ONE (21:37)
[2020-11-03] MEDS: ATORVASTATIN CA 40 MG TABLET (FP) PO SCH (21:51)
[2020-11-03] MEDS: MEMANTINE HCL 5 MG TABLET (UD) PO SCH (21:52)
[2020-11-03] MEDS: RANOLAZINE E.R. 500 MG TABLET (FP) PO SCH (21:52)
[2020-11-03] MEDS: CARBIDOPA/LEVODOPA 25/100 TABLET (FP) PO SCH (22:45)
[2020-11-04 01:29] VITALS: BMI 26.3
[2020-11-04] MEDS: CARBIDOPA/LEVODOPA 25/100 TABLET (FP) PO SCH ×3 (05:50→21:26)
[2020-11-04 08:58] LABS: BASO % 0.4 % (0-2.0); EOS % 5.1 % (0-4.5); HEMATOCRIT 39.2 % (35.4-49); HEMOGLOBIN 13.5 GM/dL (11.7-16.9); LYMPH % 22.7 % (8-40); MCH 34.2 pg (25.7-33.7); MCHC 34.4 g/dl (32.0-35.9); MEAN CELL VOLUME 99.5 fl (80-96); MEAN PLT VOLUME 9.8 fl (7.5-11.1); MONO % 9.4 % (3.8-10.2); NEUT % 62.4 % (42.8-82.8); PLATELET COUNT 166 10^3/uL (134-434); RBC 3.94 M/mm3 (4.00-5.60); RDW 14.6 % (11.9-15.9); WHITE BLOOD COUNT 7.6 K/mm3 (4.0-10.0)
[2020-11-04 09:21] LABS: BLOOD UREA NITROGEN 11.6 mg/dL (7-18); CALCIUM 8.9 mg/dL (8.5-10.1)
[2020-11-04 09:24] LABS: CREATININE 0.9 mg/dL (0.55-1.3)
[2020-11-04] MEDS: RANOLAZINE E.R. 500 MG TABLET (FP) PO SCH ×2 (09:25→21:26)
[2020-11-04] MEDS: PANTOPRAZOLE 40 MG TABLET PO SCH (09:25)
[2020-11-04] MEDS: ASPIRIN 81 MG CHEWABLE TABLETS PO SCH (09:25)
[2020-11-04] MEDS: SERTRALINE HCL 50 MG TABLET (FP) PO SCH (09:25)
[2020-11-04] MEDS: MEMANTINE HCL 5 MG TABLET (UD) PO SCH ×2 (09:25→21:26)
[2020-11-04] MEDS: LOSARTAN POTASSIUM 50 MG TABLET PO SCH (09:25)
[2020-11-04] MEDS ORDERED: PT OWN MED DRAWER 7, Y5N ONE ×2 (13:57→21:24)
[2020-11-04] MEDS: ATORVASTATIN CA 40 MG TABLET (FP) PO SCH (21:26)
[2020-11-05] MEDS ORDERED: PT OWN MED DRAWER 7, Y5N ONE ×3 (05:26→21:17)
[2020-11-05] MEDS: CARBIDOPA/LEVODOPA 25/100 TABLET (FP) PO SCH ×3 (06:22→21:30)
[2020-11-05] MEDS: LOSARTAN POTASSIUM 50 MG TABLET PO SCH (09:19)
[2020-11-05] MEDS: SERTRALINE HCL 50 MG TABLET (FP) PO SCH (09:19)
[2020-11-05] MEDS: ASPIRIN 81 MG CHEWABLE TABLETS PO SCH (09:19)
[2020-11-05] MEDS: RANOLAZINE E.R. 500 MG TABLET (FP) PO SCH ×2 (09:19→21:30)
[2020-11-05] MEDS: PANTOPRAZOLE 40 MG TABLET PO SCH (09:19)
[2020-11-05] MEDS: MEMANTINE HCL 5 MG TABLET (UD) PO SCH ×2 (09:19→21:30)
[2020-11-05] MEDS: levETIRAcetam 500 MG TABLET (FP) PO SCH (21:29)
[2020-11-05] MEDS: ATORVASTATIN CA 40 MG TABLET (FP) PO SCH (21:30)
[2020-11-05] MEDS ORDERED: levETIRAcetam 250 MG TABLET PO SCH (22:00)
[2020-11-06] MEDS ORDERED: PT OWN MED DRAWER 7, Y5N ONE (06:14)
[2020-11-06] MEDS: CARBIDOPA/LEVODOPA 25/100 TABLET (FP) PO SCH ×2 (06:24→14:26)
[2020-11-06 07:48] VITALS: PULSE 60
[2020-11-06] MEDS: ASPIRIN 81 MG CHEWABLE TABLETS PO SCH (10:33)
[2020-11-06] MEDS: levETIRAcetam 500 MG TABLET (FP) PO SCH (10:33)
[2020-11-06] MEDS: SERTRALINE HCL 50 MG TABLET (FP) PO SCH (10:33)
[2020-11-06] MEDS: LOSARTAN POTASSIUM 50 MG TABLET PO SCH (10:33)
[2020-11-06] MEDS: RANOLAZINE E.R. 500 MG TABLET (FP) PO SCH (10:33)
[2020-11-06] MEDS: MEMANTINE HCL 5 MG TABLET (UD) PO SCH (10:34)
[2020-11-06] MEDS: PANTOPRAZOLE 40 MG TABLET PO SCH (10:34)
[2020-11-06 10:55] VITALS: TEMP 98.2
[2020-11-06 15:42] VITALS: BP 125/71
== END 2020-11-06 18:16 | disposition home or self-care (01) | DRG 312 ==
LOC: JER 11:36 → JERBED 14:00 → J4W 21:10 → OBSVTOIN 11-05 15:17
PROVIDERS: ADMIT Internal Medicine; ATTEND Family Medicine
DX: R55 Syncope and collapse (principal); I69.351 Hemiplegia and hemiparesis following cerebral infarction affecting right dominant side; I25.110 Atherosclerotic heart disease of native coronary artery with unstable angina pectoris; G20 Parkinson's disease; I10 Essential (primary) hypertension; I69.320 Aphasia following cerebral infarction; I25.10 Atherosclerotic heart disease of native coronary artery without angina pectoris; E78.5 Hyperlipidemia, unspecified; E78.00 Pure hypercholesterolemia, unspecified; Z95.0 Presence of cardiac pacemaker; I45.10 Unspecified right bundle-branch block; R32 Unspecified urinary incontinence; G47.30 Sleep apnea, unspecified; I44.1 Atrioventricular block, second degree; Z98.61 Coronary angioplasty status
CPT/HCPCS: 36415; 70450-TC; 71045-TC-FY; 80048; 80053; 81003; 82550; 82553; 83735; 84484; 85025; 85610; 85730; 87086; 93005; 93010; 93880-TC; 97116-GP; 97161-GP; 99285-25; C9803; G0378; U0003; U0005

== ENCOUNTER 2021-04-15 11:30 | Inpatient (IN) | payer OTHER, BC ==
[2021-04-15 12:22] VITALS: BMI 28.3
[2021-04-15 12:46] LABS: BASO % 0.3 % (0-2.0); EOS % 3.2 % (0-4.5); HEMOGLOBIN 14.2 GM/dL (11.7-16.9); LYMPH % 12.4 % (8-40); MCH 34.1 pg (25.7-33.7); MCHC 33.9 g/dl (32.0-35.9); MEAN CELL VOLUME 100.6 fl (80-96); MEAN PLT VOLUME 9.2 fl (7.5-11.1); MONO % 6.5 % (3.8-10.2); NEUT % 77.6 % (42.8-82.8); PLATELET COUNT 176 10^3/uL (134-434); RBC 4.18 M/mm3 (4.00-5.60); RDW 14.8 % (11.9-15.9); WHITE BLOOD COUNT 5.8 K/mm3 (4.0-10.0)
[2021-04-15 13:08] LABS: BLOOD UREA NITROGEN 18.6 mg/dL (7-18); CALCIUM 9.8 mg/dL (8.5-10.1)
[2021-04-15 13:09] LABS: ALBUMIN 4.4 g/dl (3.4-5.0)
[2021-04-15 13:12] LABS: CREATININE 1.2 mg/dL (0.55-1.3)
[2021-04-15 13:13] LABS: BILIRUBIN,TOTAL 0.5 mg/dL (0.2-1); TOT PROT 8.4 g/dl (6.4-8.2)
[2021-04-15] MEDS ORDERED: ACETAMINOPHEN 325 MG TABLET (FP) PO PRN (15:40)
[2021-04-15] MEDS: MEMANTINE HCL 5 MG TABLET (UD) PO SCH (22:00)
[2021-04-15] MEDS: levETIRAcetam 500 MG TABLET (FP) PO SCH (22:00)
[2021-04-15] MEDS: ATORVASTATIN CA 40 MG TABLET (FP) PO SCH (22:01)
[2021-04-15] MEDS: RANOLAZINE E.R. 500 MG TABLET (FP) PO SCH (22:01)
[2021-04-15] MEDS: CARBIDOPA/LEVODOPA 25/100 TABLET (FP) PO SCH (23:00)
[2021-04-16] MEDS: CARBIDOPA/LEVODOPA 25/100 TABLET (FP) PO SCH ×3 (06:26→21:48)
[2021-04-16] MEDS: RANOLAZINE E.R. 500 MG TABLET (FP) PO SCH ×2 (09:59→21:47)
[2021-04-16] MEDS: PANTOPRAZOLE 40 MG TABLET PO SCH (09:59)
[2021-04-16] MEDS: MEMANTINE HCL 5 MG TABLET (UD) PO SCH ×2 (09:59→21:47)
[2021-04-16] MEDS: ASPIRIN COATED 81 MG TABLET.EC PO SCH (09:59)
[2021-04-16] MEDS: levETIRAcetam 500 MG TABLET (FP) PO SCH ×2 (09:59→21:47)
[2021-04-16] MEDS: LOSARTAN POTASSIUM 50 MG TABLET PO SCH (10:00)
[2021-04-16 11:42] LABS: CALCIUM 9.3 mg/dL (8.5-10.1)
[2021-04-16 11:43] LABS: BLOOD UREA NITROGEN 18.3 mg/dL (7-18)
[2021-04-16 11:46] LABS: HEMATOCRIT 40.6 % (35.4-49); HEMOGLOBIN 13.6 GM/dL (11.7-16.9); MCH 33.8 pg (25.7-33.7); MCHC 33.6 g/dl (32.0-35.9); MEAN CELL VOLUME 100.8 fl (80-96); MEAN PLT VOLUME 9.1 fl (7.5-11.1); PLATELET COUNT 168 10^3/uL (134-434); RBC 4.02 M/mm3 (4.00-5.60); WHITE BLOOD COUNT 8.1 K/mm3 (4.0-10.0)
[2021-04-16] MEDS ORDERED: PNEUMOC 13-VAL CONJ-DIP CRM/PF 0.5 ML DISP.SYRIN IM ONE (14:48)
[2021-04-16] MEDS ORDERED: SODIUM CHLORIDE 0.45% 1,000 ML IV SCH (15:30)
[2021-04-16] MEDS: ATORVASTATIN CA 40 MG TABLET (FP) PO SCH (21:47)
[2021-04-17] MEDS: CARBIDOPA/LEVODOPA 25/100 TABLET (FP) PO SCH ×3 (06:31→17:28)
[2021-04-17 07:36] LABS: CALCIUM 8.8 mg/dL (8.5-10.1)
[2021-04-17 07:37] LABS: BLOOD UREA NITROGEN 17.3 mg/dL (7-18)
[2021-04-17 07:39] LABS: CREATININE 0.9 mg/dL (0.55-1.3)
[2021-04-17 07:41] LABS: BILIRUBIN,TOTAL 0.5 mg/dL (0.2-1)
[2021-04-17 08:21] LABS: ALBUMIN 3.2 g/dl (3.4-5.0)
[2021-04-17] MEDS: LOSARTAN POTASSIUM 50 MG TABLET PO SCH (10:07)
[2021-04-17] MEDS: RANOLAZINE E.R. 500 MG TABLET (FP) PO SCH ×2 (10:07→21:25)
[2021-04-17] MEDS: PANTOPRAZOLE 40 MG TABLET PO SCH (10:07)
[2021-04-17] MEDS: ASPIRIN COATED 81 MG TABLET.EC PO SCH (10:07)
[2021-04-17] MEDS: levETIRAcetam 500 MG TABLET (FP) PO SCH ×2 (10:08→21:25)
[2021-04-17] MEDS: MEMANTINE HCL 10 MG TABLET (FP) PO SCH ×2 (10:08→21:25)
[2021-04-17 11:26] LABS: BASO % 0.5 % (0-2.0); EOS % 4.7 % (0-4.5); HEMATOCRIT 41.3 % (35.4-49); HEMOGLOBIN 13.7 GM/dL (11.7-16.9); LYMPH % 22.9 % (8-40); MCH 33.5 pg (25.7-33.7); MCHC 33.1 g/dl (32.0-35.9); MEAN CELL VOLUME 101.4 fl (80-96); MEAN PLT VOLUME 9.4 fl (7.5-11.1); MONO % 10.7 % (3.8-10.2); NEUT % 61.2 % (42.8-82.8); PLATELET COUNT 166 10^3/uL (134-434); RBC 4.08 M/mm3 (4.00-5.60); RDW 14.6 % (11.9-15.9)
[2021-04-17 12:13] LABS: BLOOD UREA NITROGEN 15.9 mg/dL (7-18)
[2021-04-17 12:14] LABS: CALCIUM 9.8 mg/dL (8.5-10.1)
[2021-04-17 12:17] LABS: BILIRUBIN,TOTAL 0.4 mg/dL (0.2-1)
[2021-04-17 12:18] LABS: TOT PROT 7.2 g/dl (6.4-8.2)
[2021-04-17 12:43] LABS: ALBUMIN 3.9 g/dl (3.4-5.0)
[2021-04-17] MEDS ORDERED: LOSARTAN POTASSIUM 25 MG TABLET PO SCH (17:50)
[2021-04-17] MEDS: ATORVASTATIN CA 40 MG TABLET (FP) PO SCH (21:25)
[2021-04-18] MEDS: CARBIDOPA/LEVODOPA 25/100 TABLET (FP) PO SCH ×2 (07:23→13:04)
[2021-04-18] MEDS: RANOLAZINE E.R. 500 MG TABLET (FP) PO SCH (09:30)
[2021-04-18] MEDS: PANTOPRAZOLE 40 MG TABLET PO SCH (09:31)
[2021-04-18] MEDS: MEMANTINE HCL 10 MG TABLET (FP) PO SCH (09:31)
[2021-04-18] MEDS: levETIRAcetam 500 MG TABLET (FP) PO SCH (09:31)
[2021-04-18] MEDS: ASPIRIN COATED 81 MG TABLET.EC PO SCH (09:31)
[2021-04-18 11:15] VITALS: BP 134/73; PULSE 71; TEMP 97.9
== END 2021-04-18 14:59 | disposition home or self-care (01) | DRG 312 ==
LOC: JER 11:30 → JERBED 14:57 → J4W 18:38
PROVIDERS: ADMIT Family Medicine; ATTEND Family Medicine
DX: I95.1 Orthostatic hypotension (principal); G81.91 Hemiplegia, unspecified affecting right dominant side; I45.2 Bifascicular block; N17.9 Acute kidney failure, unspecified; I25.10 Atherosclerotic heart disease of native coronary artery without angina pectoris; I10 Essential (primary) hypertension; E78.5 Hyperlipidemia, unspecified; G20 Parkinson's disease; G30.9 Alzheimer's disease, unspecified; M79.10 Myalgia, unspecified site; G47.30 Sleep apnea, unspecified; F02.80 Dementia in other diseases classified elsewhere, unspecified severity, without behavioral disturbance, psychotic disturbance, mood disturbance, and anxiety; I69.920 Aphasia following unspecified cerebrovascular disease; G40.909 Epilepsy, unspecified, not intractable, without status epilepticus; H54.61 Unqualified visual loss, right eye, normal vision left eye; R79.89 Other specified abnormal findings of blood chemistry; I44.1 Atrioventricular block, second degree; Z95.5 Presence of coronary angioplasty implant and graft; Z95.0 Presence of cardiac pacemaker; Z96.641 Presence of right artificial hip joint
CPT/HCPCS: 36415; 70450-TC; 71045-TC-FY; 72125-TC; 80048; 80053; 80177; 82550; 82607; 84443; 84484; 85025; 85027; 90670; 93005; 93010; 97116-GP; 97162-GP; 99285-25; C9803; U0003; U0005

== ENCOUNTER 2022-01-16 13:30 | Observation (INO) | payer OTHER, BC ==
[2022-01-16] MEDS ORDERED: SODIUM CHLORIDE 1,000 ML IV SCH (14:00)
[2022-01-16 14:02] VITALS: RESP 20; BMI 25.0
[2022-01-16 14:43] LABS: BASO % 0.3 % (0-2.0); EOS % 4.5 % (0-4.5); HEMATOCRIT 39.5 % (35.4-49); HEMOGLOBIN 13.1 GM/dL (11.7-16.9); LYMPH % 14.5 % (8-40); MCH 33.5 pg (25.7-33.7); MCHC 33.2 g/dl (32.0-35.9); MEAN PLT VOLUME 9.5 fl (7.5-11.1); NEUT % 71.7 % (42.8-82.8); PLATELET COUNT 174 10^3/uL (134-434); RBC 3.91 M/mm3 (4.00-5.60); RDW 13.8 % (11.9-15.9); WHITE BLOOD COUNT 6.9 K/mm3 (4.0-10.0)
[2022-01-16 14:50] LABS: INR 1.24 (0.83-1.09); PROTHROMBIN TIME (PATIENT) 14.3 SEC (9.7-13.0)
[2022-01-16 14:53] LABS: ACTIVATED PTT 29.2 SECONDS (25.2-36.5)
[2022-01-16 16:07] LABS: URINE APPEARANCE Clear; URINE BILIRUBIN Negative (NEGATIVE); URINE COLOR Yellow; URINE GLUCOSE (UA) Negative (NEGATIVE); URINE KETONE Negative (NEGATIVE); URINE LEUK ESTERASE Negative (NEGATIVE); URINE NITRITE Negative (NEGATIVE); URINE PROTEIN Negative (NEGATIVE); URINE UROBILINOGEN 0.2 mg/dL (0.2-1.0)
[2022-01-16 16:21] LABS: ALBUMIN 3.4 g/dl (3.4-5.0)
[2022-01-16] MEDS ORDERED: SODIUM CHLORIDE 0.9% 500 ML INFUS.BAG IV ONE (16:25)
[2022-01-16 16:40] LABS: BILIRUBIN,TOTAL 0.5 mg/dL (0.2-1); BLOOD UREA NITROGEN 15.5 mg/dL (7-18); CALCIUM 8.9 mg/dL (8.5-10.1); TOT PROT 6.8 g/dl (6.4-8.2)
[2022-01-16 20:52] VITALS: BP 169/85; PULSE 102; TEMP 98.2
== END 2022-01-16 21:44 | disposition short-term general hospital (02) ==
LOC: JER 13:30 → JERBED 15:36
PROVIDERS: ADMIT Internal Medicine; ATTEND Internal Medicine
PROC: 3E0337Z Introduction of Electrolytic and Water Balance Substance into Peripheral Vein, Percutaneous Approach (ICD-10-PCS; principal; 2022-01-16)
DX: S09.90XA Unspecified injury of head, initial encounter (principal); G20 Parkinson's disease; I25.10 Atherosclerotic heart disease of native coronary artery without angina pectoris; Z95.0 Presence of cardiac pacemaker; I11.9 Hypertensive heart disease without heart failure; Z86.73 Personal history of transient ischemic attack (TIA), and cerebral infarction without residual deficits; H54.40 Blindness, one eye, unspecified eye; R47.01 Aphasia; W18.39XA Other fall on same level, initial encounter; R55 Syncope and collapse; Y93.89 Activity, other specified; Y92.89 Other specified places as the place of occurrence of the external cause; Z87.891 Personal history of nicotine dependence; Z95.1 Presence of aortocoronary bypass graft; Z96.641 Presence of right artificial hip joint
CPT/HCPCS: 36415; 70450-TC; 70496-TC; 70498-TC; 80053; 80061; 81003; 82550; 82962; 83036; 84484; 85025; 85610; 85730; 86850; 86900; 86901; 93005; 93010; 96360; 99285-25; C9803-CS; G0378; U0003; U0005

== ENCOUNTER 2022-11-28 09:43 | Inpatient (IN) | payer OTHER, BC ==
[2022-11-28 10:44] VITALS: BMI 26.6
[2022-11-28 11:52] LABS: INR 1.13 (0.83-1.09); PROTHROMBIN TIME (PATIENT) 13.1 SEC (9.7-13.0)
[2022-11-28 11:54] LABS: ACTIVATED PTT 28.5 SECONDS (25.2-36.5)
[2022-11-28 12:09] LABS: BASO % 0.2 % (0-2.0); EOS % 2.9 % (0-4.5); HEMOGLOBIN 13.6 GM/dL (11.7-16.9); MCH 33.9 pg (25.7-33.7); MEAN CELL VOLUME 99.8 fl (80-96); MEAN PLT VOLUME 9.4 fl (7.5-11.1); MONO % 10.4 % (3.8-10.2); NEUT % 66.5 % (42.8-82.8); PLATELET COUNT 206 10^3/uL (134-434); RBC 4.01 M/mm3 (4.00-5.60); RDW 13.7 % (11.9-15.9)
[2022-11-28 12:13] LABS: POTASSIUM 4.1 mmol/L (3.5-5.1)
[2022-11-28 12:15] LABS: ALBUMIN 3.7 g/dl (3.4-5.0); CALCIUM 9.3 mg/dL (8.5-10.1)
[2022-11-28 12:16] LABS: BLOOD UREA NITROGEN 11.5 mg/dL (7-18); MAGNESIUM 2.2 mg/dL (1.8-2.4)
[2022-11-28 12:18] LABS: PHOSPHOROUS 2.5 mg/dL (2.5-4.9)
[2022-11-28 12:20] LABS: BILIRUBIN,TOTAL 0.5 mg/dL (0.2-1); TOT PROT 7.5 g/dl (6.4-8.2)
[2022-11-28 14:21] LABS: URINE APPEARANCE Clear; URINE BILIRUBIN Negative (NEGATIVE); URINE COLOR Yellow; URINE GLUCOSE (UA) Negative (NEGATIVE); URINE KETONE Negative (NEGATIVE); URINE LEUK ESTERASE Negative (NEGATIVE); URINE NITRITE Negative (NEGATIVE); URINE PROTEIN Negative (NEGATIVE); URINE UROBILINOGEN 0.2 mg/dL (0.2-1.0)
[2022-11-28] MEDS: levETIRAcetam 500 MG TABLET (FP) PO SCH (22:23)
[2022-11-28] MEDS: CARBIDOPA/LEVODOPA 25/250 TABLET (FP) PO SCH (22:24)
[2022-11-28] MEDS: MEMANTINE HCL 10 MG TABLET (FP) PO SCH (22:24)
[2022-11-28] MEDS: ATORVASTATIN CA 40 MG TABLET (FP) PO SCH (22:24)
[2022-11-28] MEDS ORDERED: LOSARTAN POTASSIUM 50 MG TABLET PO ONE (23:17)
[2022-11-29] MEDS: CARBIDOPA/LEVODOPA 25/250 TABLET (FP) PO SCH ×3 (06:38→16:19)
[2022-11-29] MEDS: SERTRALINE HCL 50 MG TABLET (FP) PO SCH (09:50)
[2022-11-29] MEDS: MEMANTINE HCL 10 MG TABLET (FP) PO SCH (09:50)
[2022-11-29] MEDS: levETIRAcetam 500 MG TABLET (FP) PO SCH ×2 (09:50→22:09)
[2022-11-29] MEDS: ENOXAPARIN NA (PORCINE) 40 MG/0.4 ML DISP.SYRIN SQ SCH (09:50)
[2022-11-29] MEDS: RANOLAZINE E.R. 500 MG TABLET (FP) PO SCH (18:05)
[2022-11-29] MEDS: ASPIRIN COATED 81 MG TABLET.EC PO SCH (18:05)
[2022-11-29] MEDS: LOSARTAN POTASSIUM 50 MG TABLET PO SCH (18:05)
[2022-11-29] MEDS: CHOLECALCIFEROL (VIT D3) 1,000 UNIT (25 MCG) TABLET PO SCH (18:09)
[2022-11-29] MEDS ORDERED: LOSARTAN POTASSIUM 50 MG TABLET PO ONE (21:38)
[2022-11-29] MEDS: MEMANTINE HCL 5 MG TABLET (UD) PO SCH (22:08)
[2022-11-29] MEDS: ATORVASTATIN CA 40 MG TABLET (FP) PO SCH (22:09)
[2022-11-29] MEDS: amLODIPine BESYLATE 5 MG TABLET (FP) PO ONE (22:17)
[2022-11-30] MEDS: CARBIDOPA/LEVODOPA 25/250 TABLET (FP) PO SCH ×3 (06:17→17:25)
[2022-11-30] MEDS: CHOLECALCIFEROL (VIT D3) 1,000 UNIT (25 MCG) TABLET PO SCH (11:00)
[2022-11-30] MEDS: SERTRALINE HCL 50 MG TABLET (FP) PO SCH (11:00)
[2022-11-30] MEDS: LOSARTAN POTASSIUM 50 MG TABLET PO SCH (11:00)
[2022-11-30] MEDS: ENOXAPARIN NA (PORCINE) 40 MG/0.4 ML DISP.SYRIN SQ SCH (11:00)
[2022-11-30] MEDS: MEMANTINE HCL 5 MG TABLET (UD) PO SCH ×2 (11:00→21:44)
[2022-11-30] MEDS: RANOLAZINE E.R. 500 MG TABLET (FP) PO SCH ×2 (11:00→21:44)
[2022-11-30] MEDS: amLODIPine BESYLATE 5 MG TABLET (FP) PO SCH (11:00)
[2022-11-30] MEDS: ASPIRIN COATED 81 MG TABLET.EC PO SCH (11:00)
[2022-11-30] MEDS: levETIRAcetam 500 MG TABLET (FP) PO SCH ×2 (11:00→21:44)
[2022-11-30] MEDS: ATORVASTATIN CA 40 MG TABLET (FP) PO SCH (21:44)
[2022-12-01] MEDS: CARBIDOPA/LEVODOPA 25/250 TABLET (FP) PO SCH ×3 (06:25→17:53)
[2022-12-01] MEDS: RANOLAZINE E.R. 500 MG TABLET (FP) PO SCH ×2 (09:43→21:48)
[2022-12-01] MEDS: LOSARTAN POTASSIUM 50 MG TABLET PO SCH (09:43)
[2022-12-01] MEDS: CHOLECALCIFEROL (VIT D3) 1,000 UNIT (25 MCG) TABLET PO SCH (09:44)
[2022-12-01] MEDS: levETIRAcetam 500 MG TABLET (FP) PO SCH ×2 (09:44→21:48)
[2022-12-01] MEDS: ENOXAPARIN NA (PORCINE) 40 MG/0.4 ML DISP.SYRIN SQ SCH (09:44)
[2022-12-01] MEDS: SERTRALINE HCL 50 MG TABLET (FP) PO SCH (09:44)
[2022-12-01] MEDS: amLODIPine BESYLATE 5 MG TABLET (FP) PO SCH (09:44)
[2022-12-01] MEDS: ASPIRIN COATED 81 MG TABLET.EC PO SCH (09:44)
[2022-12-01] MEDS: MEMANTINE HCL 5 MG TABLET (UD) PO SCH ×5 (09:45→21:48)
[2022-12-01] MEDS: ATORVASTATIN CA 40 MG TABLET (FP) PO SCH (21:48)
[2022-12-02] MEDS: CARBIDOPA/LEVODOPA 25/250 TABLET (FP) PO SCH ×3 (06:01→18:06)
[2022-12-02 08:58] LABS: BASO % 0.2 % (0-2.0); EOS % 0.1 % (0-4.5); HEMATOCRIT 41.5 % (35.4-49); HEMOGLOBIN 13.5 GM/dL (11.7-16.9); LYMPH % 7.7 % (8-40); MCH 33.1 pg (25.7-33.7); MCHC 32.5 g/dl (32.0-35.9); MEAN CELL VOLUME 101.7 fl (80-96); MEAN PLT VOLUME 9.1 fl (7.5-11.1); MONO % 9.7 % (3.8-10.2); NEUT % 82.3 % (42.8-82.8); PLATELET COUNT 214 10^3/uL (134-434); RBC 4.08 M/mm3 (4.00-5.60); RDW 13.9 % (11.9-15.9); WHITE BLOOD COUNT 12.6 K/mm3 (4.0-10.0)
[2022-12-02 09:18] LABS: POTASSIUM 4.1 mmol/L (3.5-5.1)
[2022-12-02 09:25] LABS: ALBUMIN 3.3 g/dl (3.4-5.0); BLOOD UREA NITROGEN 14.7 mg/dL (7-18); CALCIUM 9.5 mg/dL (8.5-10.1)
[2022-12-02 09:29] LABS: BILIRUBIN,TOTAL 0.7 mg/dL (0.2-1); TOT PROT 6.9 g/dl (6.4-8.2)
[2022-12-02] MEDS: CHOLECALCIFEROL (VIT D3) 1,000 UNIT (25 MCG) TABLET PO SCH (10:13)
[2022-12-02] MEDS: ENOXAPARIN NA (PORCINE) 40 MG/0.4 ML DISP.SYRIN SQ SCH (10:13)
[2022-12-02] MEDS: levETIRAcetam 500 MG TABLET (FP) PO SCH ×2 (10:13→22:59)
[2022-12-02] MEDS: SERTRALINE HCL 50 MG TABLET (FP) PO SCH (10:13)
[2022-12-02] MEDS: ASPIRIN COATED 81 MG TABLET.EC PO SCH (10:14)
[2022-12-02] MEDS: amLODIPine BESYLATE 5 MG TABLET (FP) PO SCH (10:14)
[2022-12-02] MEDS: MEMANTINE HCL 5 MG TABLET (UD) PO SCH ×2 (10:14→23:00)
[2022-12-02] MEDS: RANOLAZINE E.R. 500 MG TABLET (FP) PO SCH ×2 (10:14→22:59)
[2022-12-02] MEDS: LOSARTAN POTASSIUM 50 MG TABLET PO SCH (10:14)
[2022-12-02] MEDS ORDERED: SODIUM CHLORIDE 1,000 ML IV SCH (19:30)
[2022-12-02] MEDS ORDERED: ACETAMINOPHEN 1000 MG/100 ML BAG IVPB ONE (21:15)
[2022-12-02] MEDS: ATORVASTATIN CA 40 MG TABLET (FP) PO SCH (23:00)
[2022-12-03 00:30] LABS: EPI CELLS 4 /uL (0-25.1); HYALINE CASTS 1 /uL (0-3.1); PH,URINE 5.5 (5.0-8.0); URINE APPEARANCE CLOUDY; URINE BACTERIA >9,000 /uL (0-1359); URINE BILIRUBIN NEGATIVE (NEGATIVE); URINE COLOR YELLOW; URINE GLUCOSE (UA) NEGATIVE (NEGATIVE); URINE KETONE TRACE (NEGATIVE); URINE LEUK ESTERASE 2+ (NEGATIVE); URINE NITRITE NEGATIVE (NEGATIVE); URINE PROTEIN 1+ (NEGATIVE); URINE RBC 27 /uL (0-23.9); URINE UROBILINOGEN 0.2 mg/dL (0.2-1.0); URINE WBC 2295 /uL (0-25.8)
[2022-12-03] MEDS ORDERED: PIPERACILLIN/TAZOB 3.375 GM 3.375 GM in DEXTROSE 5%-WATER - 50 ML IVPB SCH ×2 (06:15→06:45)
[2022-12-03] MEDS ORDERED: ACETAMINOPHEN 1000 MG/100 ML BAG IVPB ONE (06:40)
[2022-12-03] MEDS: CARBIDOPA/LEVODOPA 25/250 TABLET (FP) PO SCH ×3 (07:01→17:18)
[2022-12-03] MEDS: SODIUM CHLORIDE 1,000 ML IV SCH (10:34)
[2022-12-03] MEDS: CEFTRIAXONE 1 GM in DEXTROSE 5%-WATER - 50 ML IVPB SCH ×2 (10:35→12:13)
[2022-12-03] MEDS: RANOLAZINE E.R. 500 MG TABLET (FP) PO SCH ×2 (10:36→21:49)
[2022-12-03] MEDS: LOSARTAN POTASSIUM 50 MG TABLET PO SCH (10:36)
[2022-12-03] MEDS: ASPIRIN COATED 81 MG TABLET.EC PO SCH (10:36)
[2022-12-03] MEDS: CHOLECALCIFEROL (VIT D3) 1,000 UNIT (25 MCG) TABLET PO SCH (10:36)
[2022-12-03] MEDS: SERTRALINE HCL 50 MG TABLET (FP) PO SCH (10:36)
[2022-12-03] MEDS: ENOXAPARIN NA (PORCINE) 40 MG/0.4 ML DISP.SYRIN SQ SCH (10:36)
[2022-12-03] MEDS: levETIRAcetam 500 MG TABLET (FP) PO SCH ×2 (10:36→21:49)
[2022-12-03] MEDS: MEMANTINE HCL 5 MG TABLET (UD) PO SCH ×2 (10:36→21:49)
[2022-12-03] MEDS: ATORVASTATIN CA 40 MG TABLET (FP) PO SCH (21:49)
[2022-12-04] MEDS: CARBIDOPA/LEVODOPA 25/250 TABLET (FP) PO SCH ×3 (06:51→16:58)
[2022-12-04] MEDS: SODIUM CHLORIDE 1,000 ML IV SCH (06:51)
[2022-12-04 09:38] LABS: BASO % 0.2 % (0-2.0); EOS % 0.9 % (0-4.5); HEMATOCRIT 33.4 % (35.4-49); LYMPH % 10.8 % (8-40); MCH 35.5 pg (25.7-33.7); MEAN CELL VOLUME 98.6 fl (80-96); MEAN PLT VOLUME 9.5 fl (7.5-11.1); MONO % 12.9 % (3.8-10.2); NEUT % 75.2 % (42.8-82.8); PLATELET COUNT 140 10^3/uL (134-434); RBC 3.38 M/mm3 (4.00-5.60); RDW 13.7 % (11.9-15.9); WHITE BLOOD COUNT 10.4 K/mm3 (4.0-10.0)
[2022-12-04] MEDS: LOSARTAN POTASSIUM 50 MG TABLET PO SCH (09:42)
[2022-12-04] MEDS: ASPIRIN COATED 81 MG TABLET.EC PO SCH (09:42)
[2022-12-04] MEDS: MEMANTINE HCL 5 MG TABLET (UD) PO SCH ×2 (09:42→22:03)
[2022-12-04] MEDS: levETIRAcetam 500 MG TABLET (FP) PO SCH ×2 (09:42→22:03)
[2022-12-04] MEDS: RANOLAZINE E.R. 500 MG TABLET (FP) PO SCH ×2 (09:42→22:03)
[2022-12-04] MEDS: CHOLECALCIFEROL (VIT D3) 1,000 UNIT (25 MCG) TABLET PO SCH (09:42)
[2022-12-04] MEDS: CEFTRIAXONE 1 GM in DEXTROSE 5%-WATER - 50 ML IVPB SCH (09:43)
[2022-12-04] MEDS: SERTRALINE HCL 50 MG TABLET (FP) PO SCH (09:43)
[2022-12-04] MEDS: ENOXAPARIN NA (PORCINE) 40 MG/0.4 ML DISP.SYRIN SQ SCH (09:43)
[2022-12-04 10:26] LABS: BLOOD UREA NITROGEN 16.8 mg/dL (7-18)
[2022-12-04 10:57] LABS: CALCIUM 8.6 mg/dL (8.5-10.1)
[2022-12-04 11:02] LABS: CREATININE 0.7 mg/dL (0.55-1.3)
[2022-12-04 11:03] LABS: BILIRUBIN,TOTAL 0.4 mg/dL (0.2-1); TOT PROT 5.9 g/dl (6.4-8.2)
[2022-12-04 11:36] LABS: POTASSIUM 3.9 mmol/L (3.5-5.1)
[2022-12-04 11:42] LABS: ALBUMIN 2.6 g/dl (3.4-5.0)
[2022-12-04] MEDS: ATORVASTATIN CA 40 MG TABLET (FP) PO SCH (22:03)
[2022-12-05] MEDS: SODIUM CHLORIDE 1,000 ML IV SCH ×2 (03:28→10:26)
[2022-12-05] MEDS: CARBIDOPA/LEVODOPA 25/250 TABLET (FP) PO SCH ×3 (06:51→17:10)
[2022-12-05 08:35] LABS: POTASSIUM 4.3 mmol/L (3.5-5.1)
[2022-12-05 08:45] LABS: BLOOD UREA NITROGEN 10.9 mg/dL (7-18); CREATININE 0.7 mg/dL (0.55-1.3)
[2022-12-05 08:46] LABS: ALBUMIN 2.5 g/dl (3.4-5.0); BILIRUBIN,TOTAL 0.5 mg/dL (0.2-1); TOT PROT 5.8 g/dl (6.4-8.2)
[2022-12-05] MEDS: SERTRALINE HCL 50 MG TABLET (FP) PO SCH (10:26)
[2022-12-05] MEDS: LOSARTAN POTASSIUM 50 MG TABLET PO SCH (10:26)
[2022-12-05] MEDS: ASPIRIN COATED 81 MG TABLET.EC PO SCH (10:26)
[2022-12-05] MEDS: CHOLECALCIFEROL (VIT D3) 1,000 UNIT (25 MCG) TABLET PO SCH (10:26)
[2022-12-05] MEDS: CEFTRIAXONE 1 GM in DEXTROSE 5%-WATER - 50 ML IVPB SCH (10:26)
[2022-12-05] MEDS: MEMANTINE HCL 5 MG TABLET (UD) PO SCH ×2 (10:26→22:59)
[2022-12-05] MEDS: levETIRAcetam 500 MG TABLET (FP) PO SCH ×2 (10:26→22:58)
[2022-12-05] MEDS: RANOLAZINE E.R. 500 MG TABLET (FP) PO SCH ×2 (10:26→22:59)
[2022-12-05] MEDS: ENOXAPARIN NA (PORCINE) 40 MG/0.4 ML DISP.SYRIN SQ SCH (10:29)
[2022-12-05] MEDS: ATORVASTATIN CA 40 MG TABLET (FP) PO SCH (22:58)
[2022-12-06 06:58] LABS: POTASSIUM 4.1 mmol/L (3.5-5.1)
[2022-12-06 07:00] LABS: CALCIUM 8.3 mg/dL (8.5-10.1)
[2022-12-06 07:01] LABS: ALBUMIN 2.4 g/dl (3.4-5.0); BLOOD UREA NITROGEN 12.4 mg/dL (7-18)
[2022-12-06 07:04] LABS: CREATININE 0.7 mg/dL (0.55-1.3)
[2022-12-06 07:06] LABS: TOT PROT 5.7 g/dl (6.4-8.2)
[2022-12-06 07:07] LABS: BILIRUBIN,TOTAL 0.4 mg/dL (0.2-1)
[2022-12-06] MEDS: CEFTRIAXONE 1 GM in DEXTROSE 5%-WATER - 50 ML IVPB SCH (09:05)
[2022-12-06] MEDS: SERTRALINE HCL 50 MG TABLET (FP) PO SCH (09:06)
[2022-12-06] MEDS: RANOLAZINE E.R. 500 MG TABLET (FP) PO SCH ×2 (09:06→22:00)
[2022-12-06] MEDS: LOSARTAN POTASSIUM 50 MG TABLET PO SCH (09:06)
[2022-12-06] MEDS: levETIRAcetam 500 MG TABLET (FP) PO SCH ×2 (09:06→22:00)
[2022-12-06] MEDS: MEMANTINE HCL 5 MG TABLET (UD) PO SCH ×2 (09:06→22:00)
[2022-12-06] MEDS: CARBIDOPA/LEVODOPA 25/250 TABLET (FP) PO SCH ×3 (09:07→16:54)
[2022-12-06] MEDS: CHOLECALCIFEROL (VIT D3) 1,000 UNIT (25 MCG) TABLET PO SCH (09:07)
[2022-12-06] MEDS: ASPIRIN COATED 81 MG TABLET.EC PO SCH (09:09)
[2022-12-06] MEDS: ATORVASTATIN CA 40 MG TABLET (FP) PO SCH (21:59)
[2022-12-07] MEDS: CARBIDOPA/LEVODOPA 25/250 TABLET (FP) PO SCH ×3 (06:46→18:01)
[2022-12-07 08:12] LABS: BASO % 0.3 % (0-2.0); HEMATOCRIT 35.9 % (35.4-49); HEMOGLOBIN 12.6 GM/dL (11.7-16.9); LYMPH % 19.9 % (8-40); MCH 34.7 pg (25.7-33.7); MCHC 35.1 g/dl (32.0-35.9); MEAN CELL VOLUME 98.7 fl (80-96); MEAN PLT VOLUME 9.3 fl (7.5-11.1); MONO % 12.9 % (3.8-10.2); NEUT % 63.9 % (42.8-82.8); PLATELET COUNT 221 10^3/uL (134-434); RBC 3.64 M/mm3 (4.00-5.60); WHITE BLOOD COUNT 8.4 K/mm3 (4.0-10.0)
[2022-12-07 08:19] LABS: POTASSIUM 4.3 mmol/L (3.5-5.1)
[2022-12-07 08:24] LABS: CALCIUM 8.6 mg/dL (8.5-10.1)
[2022-12-07 08:25] LABS: BLOOD UREA NITROGEN 14.8 mg/dL (7-18)
[2022-12-07 08:28] LABS: CREATININE 0.8 mg/dL (0.55-1.3)
[2022-12-07 09:11] VITALS: RESP 18
[2022-12-07] MEDS: CEFTRIAXONE 1 GM in DEXTROSE 5%-WATER - 50 ML IVPB SCH (10:39)
[2022-12-07] MEDS: levETIRAcetam 500 MG TABLET (FP) PO SCH ×2 (10:40→21:54)
[2022-12-07] MEDS: MEMANTINE HCL 5 MG TABLET (UD) PO SCH ×2 (10:40→21:54)
[2022-12-07] MEDS: CHOLECALCIFEROL (VIT D3) 1,000 UNIT (25 MCG) TABLET PO SCH (10:41)
[2022-12-07] MEDS: ASPIRIN COATED 81 MG TABLET.EC PO SCH (10:41)
[2022-12-07] MEDS: LOSARTAN POTASSIUM 50 MG TABLET PO SCH (10:41)
[2022-12-07] MEDS: SERTRALINE HCL 50 MG TABLET (FP) PO SCH (10:41)
[2022-12-07] MEDS: RANOLAZINE E.R. 500 MG TABLET (FP) PO SCH ×2 (10:41→21:53)
[2022-12-07] MEDS: ATORVASTATIN CA 40 MG TABLET (FP) PO SCH (21:53)
[2022-12-07] MEDS: HEPARIN NA (PORCINE) 5,000 UNITS/ML 1ML VIAL SQ SCH (21:54)
[2022-12-08] MEDS: CARBIDOPA/LEVODOPA 25/250 TABLET (FP) PO SCH ×3 (06:26→16:53)
[2022-12-08 08:10] LABS: HEMATOCRIT 36.5 % (35.4-49); HEMOGLOBIN 12.2 GM/dL (11.7-16.9); MCH 33.9 pg (25.7-33.7); MCHC 33.4 g/dl (32.0-35.9); MEAN CELL VOLUME 101.5 fl (80-96); MEAN PLT VOLUME 8.9 fl (7.5-11.1); PLATELET COUNT 231 10^3/uL (134-434); RBC 3.59 M/mm3 (4.00-5.60); RDW 13.9 % (11.9-15.9); WHITE BLOOD COUNT 8.7 K/mm3 (4.0-10.0)
[2022-12-08 08:29] LABS: POTASSIUM 4.5 mmol/L (3.5-5.1)
[2022-12-08 08:34] LABS: BLOOD UREA NITROGEN 16.5 mg/dL (7-18); CALCIUM 8.5 mg/dL (8.5-10.1); MAGNESIUM 2.1 mg/dL (1.8-2.4)
[2022-12-08 08:38] LABS: CREATININE 0.9 mg/dL (0.55-1.3); PHOSPHOROUS 3.6 mg/dL (2.5-4.9)
[2022-12-08] MEDS: HEPARIN NA (PORCINE) 5,000 UNITS/ML 1ML VIAL SQ SCH ×2 (09:46→22:01)
[2022-12-08] MEDS: CEFTRIAXONE 1 GM in DEXTROSE 5%-WATER - 50 ML IVPB SCH (09:46)
[2022-12-08] MEDS: CHOLECALCIFEROL (VIT D3) 1,000 UNIT (25 MCG) TABLET PO SCH (09:46)
[2022-12-08] MEDS: ASPIRIN COATED 81 MG TABLET.EC PO SCH (09:46)
[2022-12-08] MEDS: RANOLAZINE E.R. 500 MG TABLET (FP) PO SCH ×2 (09:46→22:00)
[2022-12-08] MEDS: levETIRAcetam 500 MG TABLET (FP) PO SCH ×2 (09:46→22:00)
[2022-12-08] MEDS: MEMANTINE HCL 5 MG TABLET (UD) PO SCH ×2 (09:46→22:00)
[2022-12-08] MEDS: SERTRALINE HCL 50 MG TABLET (FP) PO SCH (09:46)
[2022-12-08] MEDS: LOSARTAN POTASSIUM 50 MG TABLET PO SCH (09:46)
[2022-12-08] MEDS: ATORVASTATIN CA 40 MG TABLET (FP) PO SCH (22:00)
[2022-12-09] MEDS: CARBIDOPA/LEVODOPA 25/250 TABLET (FP) PO SCH ×3 (06:48→16:59)
[2022-12-09] MEDS: HEPARIN NA (PORCINE) 5,000 UNITS/ML 1ML VIAL SQ SCH (09:46)
[2022-12-09] MEDS: ASPIRIN COATED 81 MG TABLET.EC PO SCH (09:47)
[2022-12-09] MEDS: RANOLAZINE E.R. 500 MG TABLET (FP) PO SCH (09:47)
[2022-12-09] MEDS: LOSARTAN POTASSIUM 50 MG TABLET PO SCH (09:47)
[2022-12-09] MEDS: levETIRAcetam 500 MG TABLET (FP) PO SCH (09:47)
[2022-12-09] MEDS: MEMANTINE HCL 5 MG TABLET (UD) PO SCH (09:47)
[2022-12-09] MEDS: CHOLECALCIFEROL (VIT D3) 1,000 UNIT (25 MCG) TABLET PO SCH (09:47)
[2022-12-09] MEDS: SERTRALINE HCL 50 MG TABLET (FP) PO SCH (09:47)
[2022-12-09] MEDS: CEFTRIAXONE 1 GM in DEXTROSE 5%-WATER - 50 ML IVPB SCH (09:48)
[2022-12-09 09:55] LABS: POTASSIUM 4.3 mmol/L (3.5-5.1)
[2022-12-09 09:57] LABS: CALCIUM 9.1 mg/dL (8.5-10.1)
[2022-12-09 09:58] LABS: BLOOD UREA NITROGEN 21.2 mg/dL (7-18)
[2022-12-09 10:01] LABS: CREATININE 0.8 mg/dL (0.55-1.3)
[2022-12-09 10:02] LABS: BILIRUBIN,TOTAL 0.4 mg/dL (0.2-1); TOT PROT 6.8 g/dl (6.4-8.2)
[2022-12-09 10:05] LABS: ALBUMIN 2.9 g/dl (3.4-5.0)
[2022-12-09 14:28] VITALS: BP 124/67; PULSE 81; TEMP 97.9
== END 2022-12-09 19:13 | DRG 871 ==
LOC: JER 09:43 → JERBED 12:52 → J4S 19:40 → OBSVTOIN 12-01 13:46
PROVIDERS: ADMIT Internal Medicine; ATTEND Internal Medicine
DX: A41.9 Sepsis, unspecified organism (principal); U07.1 COVID-19; I45.2 Bifascicular block; J98.11 Atelectasis; N39.0 Urinary tract infection, site not specified; I69.351 Hemiplegia and hemiparesis following cerebral infarction affecting right dominant side; G20.A1 Parkinson's disease without dyskinesia, without mention of fluctuations; F02.80 Dementia in other diseases classified elsewhere, unspecified severity, without behavioral disturbance, psychotic disturbance, mood disturbance, and anxiety; E55.9 Vitamin D deficiency, unspecified; Z95.5 Presence of coronary angioplasty implant and graft; I25.10 Atherosclerotic heart disease of native coronary artery without angina pectoris; I69.320 Aphasia following cerebral infarction; I16.0 Hypertensive urgency
CPT/HCPCS: 0241U-QW; 36415; 70450-TC; 71045-TC-FY; 72125-TC; 72170-TC-FY; 80048; 80053; 81003; 82962; 83735; 84100; 84484; 85025; 85027; 85610; 85730; 87040; 87086; 87186; 87635; 93005; 93010; 97116-GP; 99285-25; G0378; J1644

== ENCOUNTER 2023-05-31 10:57 | Inpatient (IN) | payer OTHER, BC ==
[2023-05-31 11:22] VITALS: BMI 27.4
[2023-05-31 12:33] LABS: BASO % 0.3 % (0-2.0); EOS % 4.9 % (0-4.5); HEMATOCRIT 37.3 % (35.4-49); HEMOGLOBIN 12.4 GM/dL (11.7-16.9); LYMPH % 14.1 % (8-40); MCH 33.7 pg (25.7-33.7); MCHC 33.2 g/dl (32.0-35.9); MEAN CELL VOLUME 101.5 fl (80-96); MEAN PLT VOLUME 8.7 fl (7.5-11.1); NEUT % 68.7 % (42.8-82.8); PLATELET COUNT 183 10^3/uL (134-434); RBC 3.68 M/mm3 (4.00-5.60); RDW 14.6 % (11.9-15.9); WHITE BLOOD COUNT 9.9 K/mm3 (4.0-10.0)
[2023-05-31 12:39] LABS: INR 1.16 (0.83-1.09); PROTHROMBIN TIME (PATIENT) 13.4 SEC (9.7-13.0)
[2023-05-31 12:41] LABS: ACTIVATED PTT 31.5 SECONDS (25.2-36.5)
[2023-05-31 13:16] LABS: POTASSIUM 4.5 mmol/L (3.5-5.1)
[2023-05-31 13:20] LABS: ALBUMIN 3.2 g/dl (3.4-5.0); CALCIUM 9.1 mg/dL (8.5-10.1); MAGNESIUM 1.9 mg/dL (1.8-2.4)
[2023-05-31 13:22] LABS: CREATININE 0.8 mg/dL (0.55-1.3)
[2023-05-31 13:24] LABS: BILIRUBIN,TOTAL 0.6 mg/dL (0.2-1); TOT PROT 6.9 g/dl (6.4-8.2)
[2023-05-31 13:33] LABS: URINE APPEARANCE CLEAR; URINE BILIRUBIN NEGATIVE (NEGATIVE); URINE COLOR YELLOW; URINE GLUCOSE (UA) NEGATIVE (NEGATIVE); URINE KETONE NEGATIVE (NEGATIVE); URINE LEUK ESTERASE NEGATIVE (NEGATIVE); URINE NITRITE NEGATIVE (NEGATIVE); URINE PROTEIN NEGATIVE (NEGATIVE); URINE UROBILINOGEN 0.2 mg/dL (0.2-1.0)
[2023-05-31] MEDS ORDERED: CEFEPIME 2 GM/100 ML BAG IVPB ONE (14:34)
[2023-05-31] MEDS: CEFEPIME HCL 2 GM VIAL (RESTRICTED TO ID) IVPB ONE (14:45)
[2023-05-31] MEDS: VANCOMYCIN HCL 1,500 MG in DEXTROSE 5%-WATER - 500 ML IVPB ONE (14:45)
[2023-05-31] MEDS: VANCOMYCIN PREMIX 1.5 GM 1,500 MG/300 ML BAG IVPB ONE (15:29)
[2023-05-31] MEDS ORDERED: ACETAMINOPHEN 325 MG TABLET (FP) PO PRN (17:16)
[2023-05-31] MEDS ORDERED: ALBUTEROL SO4 2.5/IPRATROPIUM 0.5 INH SOL 3 ML VIAL.NEB. NEB PRN (17:16)
[2023-05-31] MEDS ORDERED: PIPERACILLIN/TAZOB 2.25 GM 2.25 GM in DEXTROSE 5%-WATER - 50 ML IVPB SCH (21:00)
[2023-05-31] MEDS: HEPARIN NA (PORCINE) 5,000 UNITS/ML 1ML VIAL SQ SCH (22:00)
[2023-05-31] MEDS: RANOLAZINE E.R. 500 MG TABLET (FP) PO SCH (22:01)
[2023-05-31] MEDS: PIPERACILLIN/TAZOB 2.25 GM 2.25 GM in DEXTROSE 5%-WATER - 50 ML IVPB SCH (22:01)
[2023-05-31] MEDS: ATORVASTATIN CA 40 MG TABLET (FP) PO SCH (22:01)
[2023-05-31] MEDS: levETIRAcetam 500 MG TABLET (FP) PO SCH (23:28)
[2023-05-31] MEDS: CARBIDOPA/LEVODOPA 25/250 TABLET (FP) PO SCH (23:29)
[2023-06-01 07:14] LABS: BASO % 0.4 % (0-2.0); EOS % 8.6 % (0-4.5); HEMOGLOBIN 12.3 GM/dL (11.7-16.9); LYMPH % 22.6 % (8-40); MCH 33.4 pg (25.7-33.7); MCHC 33.2 g/dl (32.0-35.9); MEAN CELL VOLUME 100.7 fl (80-96); MONO % 14.7 % (3.8-10.2); NEUT % 53.7 % (42.8-82.8); PLATELET COUNT 191 10^3/uL (134-434); RBC 3.67 M/mm3 (4.00-5.60); RDW 14.4 % (11.9-15.9); WHITE BLOOD COUNT 6.5 K/mm3 (4.0-10.0)
[2023-06-01 07:29] LABS: POTASSIUM 4.2 mmol/L (3.5-5.1)
[2023-06-01 07:35] LABS: ALBUMIN 2.8 g/dl (3.4-5.0); BLOOD UREA NITROGEN 17.2 mg/dL (7-18); CALCIUM 9.1 mg/dL (8.5-10.1)
[2023-06-01 07:38] LABS: CREATININE 0.9 mg/dL (0.55-1.3)
[2023-06-01 07:40] LABS: BILIRUBIN,TOTAL 0.6 mg/dL (0.2-1); TOT PROT 6.2 g/dl (6.4-8.2)
[2023-06-01] MEDS: ASPIRIN 81 MG CHEWABLE TABLETS PO SCH (10:26)
[2023-06-01] MEDS: SERTRALINE HCL 50 MG TABLET (FP) PO SCH (10:28)
[2023-06-01] MEDS: LOSARTAN POTASSIUM 50 MG TABLET PO SCH (10:28)
[2023-06-01] MEDS: PIPERACILLIN/TAZOB 3.375 GM 3.375 GM in DEXTROSE 5%-WATER - 50 ML IVPB SCH ×2 (21:17→22:21)
[2023-06-02 09:01] LABS: BASO % 0.2 % (0-2.0); EOS % 7.1 % (0-4.5); HEMOGLOBIN 12.2 GM/dL (11.7-16.9); LYMPH % 24.1 % (8-40); MCH 33.1 pg (25.7-33.7); MCHC 32.9 g/dl (32.0-35.9); MEAN CELL VOLUME 100.6 fl (80-96); MEAN PLT VOLUME 9.4 fl (7.5-11.1); MONO % 11.4 % (3.8-10.2); NEUT % 57.2 % (42.8-82.8); PLATELET COUNT 198 10^3/uL (134-434); RBC 3.68 M/mm3 (4.00-5.60); RDW 14.1 % (11.9-15.9); WHITE BLOOD COUNT 6.8 K/mm3 (4.0-10.0)
[2023-06-02 09:35] LABS: BLOOD UREA NITROGEN 16.9 mg/dL (7-18); CALCIUM 9.1 mg/dL (8.5-10.1); CREATININE 0.9 mg/dL (0.55-1.3); POTASSIUM 4.1 mmol/L (3.5-5.1)
[2023-06-02 09:36] LABS: BILIRUBIN,TOTAL 0.7 mg/dL (0.2-1); TOT PROT 6.4 g/dl (6.4-8.2)
[2023-06-03 07:14] LABS: BASO % 0.5 % (0-2.0); EOS % 5.7 % (0-4.5); HEMATOCRIT 35.1 % (35.4-49); HEMOGLOBIN 11.9 GM/dL (11.7-16.9); LYMPH % 22.3 % (8-40); MCH 33.8 pg (25.7-33.7); MEAN CELL VOLUME 99.6 fl (80-96); MEAN PLT VOLUME 9.3 fl (7.5-11.1); MONO % 10.7 % (3.8-10.2); NEUT % 60.8 % (42.8-82.8); PLATELET COUNT 201 10^3/uL (134-434); RBC 3.52 M/mm3 (4.00-5.60); RDW 14.5 % (11.9-15.9); WHITE BLOOD COUNT 7.8 K/mm3 (4.0-10.0)
[2023-06-03 07:26] LABS: POTASSIUM 4.1 mmol/L (3.5-5.1)
[2023-06-03 07:44] LABS: CALCIUM 9.1 mg/dL (8.5-10.1)
[2023-06-03 07:45] LABS: ALBUMIN 2.9 g/dl (3.4-5.0); BLOOD UREA NITROGEN 14.4 mg/dL (7-18)
[2023-06-03 07:47] LABS: CREATININE 0.9 mg/dL (0.55-1.3)
[2023-06-03 07:49] LABS: TOT PROT 6.3 g/dl (6.4-8.2)
[2023-06-03 07:50] LABS: BILIRUBIN,TOTAL 0.6 mg/dL (0.2-1)
[2023-06-04 07:40] LABS: BASO % 0.3 % (0-2.0); HEMATOCRIT 35.5 % (35.4-49); HEMOGLOBIN 12.3 GM/dL (11.7-16.9); LYMPH % 26.1 % (8-40); MCH 34.3 pg (25.7-33.7); MCHC 34.7 g/dl (32.0-35.9); MEAN PLT VOLUME 9.1 fl (7.5-11.1); MONO % 10.8 % (3.8-10.2); NEUT % 56.8 % (42.8-82.8); PLATELET COUNT 243 10^3/uL (134-434); RBC 3.59 M/mm3 (4.00-5.60); RDW 14.2 % (11.9-15.9)
[2023-06-04 07:55] LABS: POTASSIUM 4.2 mmol/L (3.5-5.1)
[2023-06-04 08:02] LABS: CALCIUM 9.3 mg/dL (8.5-10.1)
[2023-06-04 08:03] LABS: ALBUMIN 3.1 g/dl (3.4-5.0); BLOOD UREA NITROGEN 14.3 mg/dL (7-18)
[2023-06-04 08:07] LABS: BILIRUBIN,TOTAL 0.6 mg/dL (0.2-1); TOT PROT 6.7 g/dl (6.4-8.2)
[2023-06-04] MEDS ORDERED: levETIRAcetam 500 MG TABLET (FP) PO SCH (14:26)
[2023-06-04 15:30] VITALS: BP 115/73; PULSE 68; RESP 18; TEMP 98.2
[2023-06-04] MEDS: AMOX TR/POT CLAV 875MG/125MG TABLETS (FP) PO SCH (17:03)
== END 2023-06-04 18:20 | DRG 193 ==
LOC: JER 10:57 → JERBED 16:07 → J4W 17:20 → OBSVTOIN 06-01 09:08
PROVIDERS: ADMIT Internal Medicine; ATTEND Internal Medicine
DX: J18.9 Pneumonia, unspecified organism (principal); G93.41 Metabolic encephalopathy; I69.351 Hemiplegia and hemiparesis following cerebral infarction affecting right dominant side; F03.90 Unspecified dementia, unspecified severity, without behavioral disturbance, psychotic disturbance, mood disturbance, and anxiety; G20.A1 Parkinson's disease without dyskinesia, without mention of fluctuations; I10 Essential (primary) hypertension; E78.5 Hyperlipidemia, unspecified; I25.10 Atherosclerotic heart disease of native coronary artery without angina pectoris; I69.320 Aphasia following cerebral infarction; Z95.5 Presence of coronary angioplasty implant and graft
CPT/HCPCS: 0241U-QW; 36415; 70450-TC; 71045-TC-FY; 74230-TC-FY; 80053; 81003; 82962; 83735; 84443; 84484; 85025; 85610; 85730; 87040; 87086; 92611-GN; 93005; 93010; 97116-GP; 97162-GP; 99285-25; G0378; J1644

== ENCOUNTER 2023-06-09 14:47 | Inpatient (IN) | payer OTHER, BC ==
[2023-06-09] MEDS: SODIUM CHLORIDE 0.9% 500 ML INFUS.BAG IV ONE (15:55)
[2023-06-09 16:00] LABS: BASO % 0.5 % (0-2.0); EOS % 2.4 % (0-4.5); LYMPH % 12.4 % (8-40); MCH 33.6 pg (25.7-33.7); MCHC 33.4 g/dl (32.0-35.9); MEAN CELL VOLUME 100.7 fl (80-96); MEAN PLT VOLUME 8.6 fl (7.5-11.1); MONO % 9.3 % (3.8-10.2); NEUT % 75.4 % (42.8-82.8); PLATELET COUNT 286 10^3/uL (134-434); RBC 3.88 M/mm3 (4.00-5.60); RDW 14.7 % (11.9-15.9); WHITE BLOOD COUNT 8.4 K/mm3 (4.0-10.0)
[2023-06-09 16:10] LABS: INR 1.17 (0.83-1.09); PROTHROMBIN TIME (PATIENT) 13.5 SEC (9.7-13.0)
[2023-06-09 16:13] LABS: ACTIVATED PTT 27.4 SECONDS (25.2-36.5)
[2023-06-09 16:22] LABS: POTASSIUM 4.9 mmol/L (3.5-5.1)
[2023-06-09 16:24] LABS: CALCIUM 9.4 mg/dL (8.5-10.1)
[2023-06-09 16:25] LABS: ALBUMIN 3.4 g/dl (3.4-5.0); BLOOD UREA NITROGEN 16.5 mg/dL (7-18); MAGNESIUM 2.2 mg/dL (1.8-2.4)
[2023-06-09 16:30] LABS: BILIRUBIN,TOTAL 0.4 mg/dL (0.2-1); TOT PROT 7.2 g/dl (6.4-8.2)
[2023-06-09 17:48] LABS: URINE APPEARANCE CLEAR; URINE BILIRUBIN NEGATIVE (NEGATIVE); URINE COLOR YELLOW; URINE GLUCOSE (UA) NEGATIVE (NEGATIVE); URINE KETONE NEGATIVE (NEGATIVE); URINE LEUK ESTERASE NEGATIVE (NEGATIVE); URINE NITRITE NEGATIVE (NEGATIVE); URINE PROTEIN NEGATIVE (NEGATIVE); URINE UROBILINOGEN 0.2 mg/dL (0.2-1.0)
[2023-06-09 21:44] LABS: PHOSPHOROUS 3.3 mg/dL (2.5-4.9)
[2023-06-09] MEDS ORDERED: levETIRAcetam 500 MG TABLET (FP) PO SCH (22:00)
[2023-06-09] MEDS ORDERED: levETIRAcetam 500 MG TABLET (FP) PO ONE (22:13)
[2023-06-09] MEDS ORDERED: CARBIDOPA/LEVODOPA 25/250 TABLET (FP) ONE ×2 (22:13→22:19)
[2023-06-09] MEDS ORDERED: ATORVASTATIN CA 40 MG TABLET (FP) ONE (22:13)
[2023-06-09] MEDS ORDERED: RANOLAZINE E.R. 500 MG TABLET (FP) ONE (22:14)
[2023-06-09] MEDS: levETIRAcetam 250 MG, levETIRAcetam 1,000 MG PO SCH (22:21)
[2023-06-09] MEDS: CARBIDOPA/LEVODOPA 25/250 TABLET (FP) PO SCH (22:21)
[2023-06-09] MEDS: ATORVASTATIN CA 40 MG TABLET (FP) PO SCH (22:21)
[2023-06-09] MEDS: RANOLAZINE E.R. 500 MG TABLET (FP) PO SCH (22:21)
[2023-06-10 00:56] VITALS: BMI 26.9
[2023-06-10] MEDS: MIDODRINE HCL 2.5 MG TABLET PO SCH (05:30)
[2023-06-10] MEDS: LOSARTAN POTASSIUM 50 MG TABLET PO SCH (09:40)
[2023-06-10] MEDS: ASPIRIN 81 MG CHEWABLE TABLETS PO SCH (09:47)
[2023-06-10] MEDS: SERTRALINE HCL 50 MG TABLET (FP) PO SCH (09:48)
[2023-06-10] MEDS: ENOXAPARIN NA (PORCINE) 40 MG/0.4 ML DISP.SYRIN SQ SCH (09:49)
[2023-06-10] MEDS ORDERED: LOSARTAN POTASSIUM 50 MG TABLET PO SCH (10:00)
[2023-06-10] MEDS ORDERED: MIDODRINE HCL 2.5 MG TABLET PO SCH (10:00)
[2023-06-10 11:10] LABS: BASO % 0.3 % (0-2.0); EOS % 4.1 % (0-4.5); HEMATOCRIT 38.1 % (35.4-49); HEMOGLOBIN 12.6 GM/dL (11.7-16.9); LYMPH % 19.1 % (8-40); MCH 33.4 pg (25.7-33.7); MEAN CELL VOLUME 101.1 fl (80-96); MEAN PLT VOLUME 8.8 fl (7.5-11.1); MONO % 10.2 % (3.8-10.2); NEUT % 66.3 % (42.8-82.8); PLATELET COUNT 269 10^3/uL (134-434); RBC 3.77 M/mm3 (4.00-5.60); RDW 14.5 % (11.9-15.9); WHITE BLOOD COUNT 9.1 K/mm3 (4.0-10.0)
[2023-06-10 11:46] LABS: ALBUMIN 3.2 g/dl (3.4-5.0); BILIRUBIN,TOTAL 0.5 mg/dL (0.2-1); BLOOD UREA NITROGEN 17.3 mg/dL (7-18); CALCIUM 9.3 mg/dL (8.5-10.1); POTASSIUM 4.2 mmol/L (3.5-5.1); TOT PROT 6.6 g/dl (6.4-8.2)
[2023-06-11] MEDS: MIDODRINE HCL 5 MG TABLET PO SCH ×2 (06:28→12:43)
[2023-06-11 08:13] LABS: BASO % 0.5 % (0-2.0); EOS % 5.1 % (0-4.5); HEMATOCRIT 38.6 % (35.4-49); HEMOGLOBIN 12.6 GM/dL (11.7-16.9); LYMPH % 26.5 % (8-40); MCH 33.1 pg (25.7-33.7); MCHC 32.6 g/dl (32.0-35.9); MEAN CELL VOLUME 101.6 fl (80-96); MEAN PLT VOLUME 9.1 fl (7.5-11.1); MONO % 9.6 % (3.8-10.2); NEUT % 58.3 % (42.8-82.8); PLATELET COUNT 259 10^3/uL (134-434); RDW 14.4 % (11.9-15.9); WHITE BLOOD COUNT 7.7 K/mm3 (4.0-10.0)
[2023-06-11 08:24] LABS: POTASSIUM 4.7 mmol/L (3.5-5.1)
[2023-06-11 08:50] LABS: BLOOD UREA NITROGEN 20.6 mg/dL (7-18); CALCIUM 9.2 mg/dL (8.5-10.1); MAGNESIUM 2.2 mg/dL (1.8-2.4)
[2023-06-11 08:51] LABS: ALBUMIN 3.1 g/dl (3.4-5.0)
[2023-06-11 08:53] LABS: CREATININE 0.9 mg/dL (0.55-1.3)
[2023-06-11 08:55] LABS: BILIRUBIN,TOTAL 0.4 mg/dL (0.2-1); TOT PROT 6.7 g/dl (6.4-8.2)
[2023-06-11] MEDS: LOSARTAN POTASSIUM 50 MG TABLET PO SCH (10:41)
[2023-06-11 21:02] VITALS: RESP 20
[2023-06-12 08:48] LABS: BASO % 0.3 % (0-2.0); EOS % 5.6 % (0-4.5); HEMATOCRIT 35.5 % (35.4-49); HEMOGLOBIN 11.8 GM/dL (11.7-16.9); MCH 33.4 pg (25.7-33.7); MCHC 33.1 g/dl (32.0-35.9); MEAN CELL VOLUME 100.7 fl (80-96); MEAN PLT VOLUME 8.8 fl (7.5-11.1); MONO % 9.8 % (3.8-10.2); NEUT % 61.3 % (42.8-82.8); PLATELET COUNT 251 10^3/uL (134-434); RBC 3.53 M/mm3 (4.00-5.60); RDW 14.4 % (11.9-15.9); WHITE BLOOD COUNT 7.9 K/mm3 (4.0-10.0)
[2023-06-12 09:03] LABS: POTASSIUM 4.5 mmol/L (3.5-5.1)
[2023-06-12 09:07] LABS: CALCIUM 9.3 mg/dL (8.5-10.1)
[2023-06-12 09:09] LABS: MAGNESIUM 2.2 mg/dL (1.8-2.4)
[2023-06-12 09:13] LABS: BILIRUBIN,TOTAL 0.5 mg/dL (0.2-1); TOT PROT 6.4 g/dl (6.4-8.2)
[2023-06-12] MEDS: LOSARTAN POTASSIUM 25 MG TABLET PO SCH (09:20)
[2023-06-12 14:02] VITALS: BP 140/75; PULSE 70; TEMP 98
== END 2023-06-12 14:00 | DRG 312 ==
LOC: JER 14:47 → JERBED 19:28 → J8W 23:18 → OBSVTOIN 06-10 09:49
PROVIDERS: ADMIT Internal Medicine; ATTEND Nurse Practitioner Acute Care
DX: I95.1 Orthostatic hypotension (principal); R47.01 Aphasia; I69.351 Hemiplegia and hemiparesis following cerebral infarction affecting right dominant side; I10 Essential (primary) hypertension; I25.10 Atherosclerotic heart disease of native coronary artery without angina pectoris; G20.A1 Parkinson's disease without dyskinesia, without mention of fluctuations; F02.80 Dementia in other diseases classified elsewhere, unspecified severity, without behavioral disturbance, psychotic disturbance, mood disturbance, and anxiety; I48.0 Paroxysmal atrial fibrillation; G47.33 Obstructive sleep apnea (adult) (pediatric); I44.0 Atrioventricular block, first degree; R13.10 Dysphagia, unspecified; G40.909 Epilepsy, unspecified, not intractable, without status epilepticus
CPT/HCPCS: 0241U-QW; 36415; 71045-TC-FY; 80053; 80177; 81003; 82607; 82962; 83735; 84100; 84484; 85025; 85610; 85730; 86850; 86900; 86901; 87086; 87635; 93005; 93010; 93306-TC; 93880-TC; 97116-GP; 97161-GP; 99285-25; G0378

== ENCOUNTER 2023-08-22 10:55 | Emergency (ER) | payer OTHER, BC ==
[2023-08-22 11:34] VITALS: TEMP 97.5; BMI 28.3
[2023-08-22 12:37] LABS: BASO % 0.3 % (0-2.0); EOS % 3.6 % (0-4.5); HEMATOCRIT 39.9 % (35.4-49); HEMOGLOBIN 13.6 GM/dL (11.7-16.9); LYMPH % 14.7 % (8-40); MCHC 34.1 g/dl (32.0-35.9); MEAN CELL VOLUME 99.7 fl (80-96); MEAN PLT VOLUME 9.2 fl (7.5-11.1); MONO % 8.4 % (3.8-10.2); PLATELET COUNT 213 10^3/uL (134-434); RDW 13.6 % (11.9-15.9); WHITE BLOOD COUNT 6.5 K/mm3 (4.0-10.0)
[2023-08-22] MEDS: SODIUM CHLORIDE 0.9% 500 ML INFUS.BAG IV ONE (12:37)
[2023-08-22 12:56] LABS: POTASSIUM 5.1 mmol/L (3.5-5.1)
[2023-08-22 12:58] LABS: CALCIUM 9.6 mg/dL (8.5-10.1)
[2023-08-22 12:59] LABS: ALBUMIN 3.7 g/dl (3.4-5.0); BLOOD UREA NITROGEN 14.9 mg/dL (7-18); MAGNESIUM 2.1 mg/dL (1.8-2.4)
[2023-08-22 13:03] LABS: BILIRUBIN,TOTAL 0.4 mg/dL (0.2-1); TOT PROT 7.4 g/dl (6.4-8.2)
[2023-08-22 13:15] LABS: URINE APPEARANCE CLEAR; URINE BILIRUBIN NEGATIVE (NEGATIVE); URINE COLOR YELLOW; URINE GLUCOSE (UA) NEGATIVE (NEGATIVE); URINE KETONE NEGATIVE (NEGATIVE); URINE LEUK ESTERASE NEGATIVE (NEGATIVE); URINE NITRITE NEGATIVE (NEGATIVE); URINE PROTEIN NEGATIVE (NEGATIVE); URINE UROBILINOGEN 0.2 mg/dL (0.2-1.0)
[2023-08-22 15:42] VITALS: BP 108/95; PULSE 81; RESP 20
[2023-08-22] MEDS ORDERED: CARBIDOPA/LEVODOPA 25/250 TABLET (FP) ONE (16:12)
[2023-08-22] MEDS: CARBIDOPA/LEVODOPA 25/250 TABLET (FP) PO ONE (16:18)
== END 2023-08-22 18:43 | disposition home or self-care (01) ==
LOC: JER 10:55
DX: I95.1 Orthostatic hypotension (principal); G40.909 Epilepsy, unspecified, not intractable, without status epilepticus; Z20.822 Contact with and (suspected) exposure to COVID-19
CPT/HCPCS: 0241U-QW; 36415; 70450-TC; 71045-TC-FY; 80053; 81003; 82962; 83735; 84484; 85025; 87086; 93005; 93010; 99285-25

== ENCOUNTER 2024-04-13 20:07 | Inpatient (IN) | payer OTHER, BC ==
[2024-04-13] MEDS ORDERED: ACETAMINOPHEN INJECTION 100 ML ONE (21:20)
[2024-04-13] MEDS: SODIUM CHLORIDE 0.9% 500 ML INFUS.BAG IV ONE (21:49)
[2024-04-13] MEDS: ACETAMINOPHEN 1000 MG/100 ML BAG IVPB ONE (21:50)
[2024-04-13 22:21] LABS: BASO % 0.5 % (0-2.0); EOS % 6.9 % (0-4.5); HEMOGLOBIN 13.5 GM/dL (11.7-16.9); MCH 32.9 pg (25.7-33.7); MCHC 32.1 g/dl (32.0-35.9); MEAN CELL VOLUME 102.3 fl (80-96); MEAN PLT VOLUME 8.8 fl (7.5-11.1); MONO % 13.4 % (3.8-10.2); NEUT % 51.2 % (42.8-82.8); PLATELET COUNT 238 10^3/uL (134-434); RDW 13.6 % (11.9-15.9); WHITE BLOOD COUNT 6.7 K/mm3 (4.0-10.0)
[2024-04-13 22:26] LABS: INR 1.06 (0.83-1.09); PROTHROMBIN TIME (PATIENT) 11.6 SEC (9.7-13.0)
[2024-04-13 22:29] LABS: ACTIVATED PTT 28.7 SECONDS (25.2-36.5)
[2024-04-13 22:40] LABS: POTASSIUM 4.9 mmol/L (3.5-5.1)
[2024-04-13 22:42] LABS: ALBUMIN 3.6 g/dl (3.4-5.0); BLOOD UREA NITROGEN 18.8 mg/dL (7-18); CALCIUM 9.2 mg/dL (8.5-10.1)
[2024-04-13 22:46] LABS: CREATININE 0.9 mg/dL (0.55-1.3)
[2024-04-13 22:47] LABS: BILIRUBIN,TOTAL 0.4 mg/dL (0.2-1); TOT PROT 7.3 g/dl (6.4-8.2)
[2024-04-13 23:46] LABS: URINE APPEARANCE CLEAR; URINE BILIRUBIN NEGATIVE (NEGATIVE); URINE COLOR YELLOW; URINE GLUCOSE (UA) NEGATIVE (NEGATIVE); URINE KETONE NEGATIVE (NEGATIVE); URINE LEUK ESTERASE NEGATIVE (NEGATIVE); URINE NITRITE NEGATIVE (NEGATIVE); URINE PROTEIN NEGATIVE (NEGATIVE); URINE UROBILINOGEN 0.2 mg/dL (0.2-1.0)
[2024-04-14] MEDS ORDERED: MIDODRINE HCL 5 MG TABLET ONE (03:59)
[2024-04-14] MEDS: MIDODRINE HCL 5 MG TABLET PO ONE (04:04)
[2024-04-14] MEDS ORDERED: LOSARTAN POTASSIUM 50 MG TABLET PO PRN (04:49)
[2024-04-14] MEDS ORDERED: levETIRAcetam 500 MG TABLET (FP) PO ONE (04:58)
[2024-04-14] MEDS: levETIRAcetam 500 MG TABLET (FP) PO ONE (05:08)
[2024-04-14 07:23] LABS: BASO % 0.4 % (0-2.0); EOS % 5.5 % (0-4.5); HEMOGLOBIN 13.9 GM/dL (11.7-16.9); LYMPH % 25.4 % (8-40); MCH 33.6 pg (25.7-33.7); MCHC 33.1 g/dl (32.0-35.9); MEAN CELL VOLUME 101.5 fl (80-96); MEAN PLT VOLUME 9.2 fl (7.5-11.1); MONO % 11.9 % (3.8-10.2); NEUT % 56.8 % (42.8-82.8); PLATELET COUNT 228 10^3/uL (134-434); RBC 4.14 M/mm3 (4.00-5.60); RDW 13.4 % (11.9-15.9); WHITE BLOOD COUNT 7.4 K/mm3 (4.0-10.0)
[2024-04-14 07:36] LABS: POTASSIUM 4.2 mmol/L (3.5-5.1)
[2024-04-14 07:39] LABS: CALCIUM 8.9 mg/dL (8.5-10.1)
[2024-04-14 07:40] LABS: ALBUMIN 3.5 g/dl (3.4-5.0); BLOOD UREA NITROGEN 14.4 mg/dL (7-18); MAGNESIUM 1.9 mg/dL (1.8-2.4)
[2024-04-14 07:42] LABS: CREATININE 0.9 mg/dL (0.55-1.3)
[2024-04-14 07:44] LABS: BILIRUBIN,TOTAL 0.4 mg/dL (0.2-1); PHOSPHOROUS 2.6 mg/dL (2.5-4.9)
[2024-04-14] MEDS: ENOXAPARIN NA (PORCINE) 40 MG/0.4 ML DISP.SYRIN SQ SCH (10:34)
[2024-04-14] MEDS: ASPIRIN 81 MG CHEWABLE TABLETS PO SCH (10:34)
[2024-04-14] MEDS: MIDODRINE HCL 5 MG TABLET PO SCH (10:34)
[2024-04-14] MEDS: SERTRALINE HCL 50 MG TABLET (FP) PO SCH (10:34)
[2024-04-14] MEDS: RANOLAZINE E.R. 500 MG TABLET (FP) PO SCH (10:35)
[2024-04-14 13:37] VITALS: BMI 30.4
[2024-04-14 13:56] VITALS: TEMP 98.3
[2024-04-14] MEDS: levETIRAcetam 500 MG TABLET (FP) PO SCH (14:27)
[2024-04-14 14:55] VITALS: BP 128/67; PULSE 71; RESP 18
[2024-04-14] MEDS ORDERED: ATORVASTATIN CA 40 MG TABLET (FP) PO SCH (22:00)
== END 2024-04-14 16:00 | disposition left against medical advice (07) | DRG 57 ==
LOC: JER 20:07 → JERBED 04-14 00:49 → OBSVTOIN 04-14 03:41 → J6S 04-14 09:38
PROVIDERS: ADMIT Internal Medicine; ATTEND Internal Medicine
DX: G20.A1 Parkinson's disease without dyskinesia, without mention of fluctuations (principal); R47.01 Aphasia; I25.10 Atherosclerotic heart disease of native coronary artery without angina pectoris; F03.90 Unspecified dementia, unspecified severity, without behavioral disturbance, psychotic disturbance, mood disturbance, and anxiety; I10 Essential (primary) hypertension; G40.909 Epilepsy, unspecified, not intractable, without status epilepticus; F32.A Depression, unspecified; E78.5 Hyperlipidemia, unspecified; Z95.5 Presence of coronary angioplasty implant and graft
CPT/HCPCS: 0241U-QW; 36415; 71045-TC-FY; 80053; 80177; 81003; 82550; 83735; 84100; 84484; 85025; 85610; 85730; 86850; 86900; 86901; 87086; 93005; 93010; 97116-GP; 97161-GP; 99285-25; G0378; J0131